=== PATIENT | male | born 1935 | race Caucasian/White ===

== ENCOUNTER 2018-03-31 20:44 | Emergency (ER) | payer BC, MEDICARE ==
[2018-03-31 20:50] VITALS: BP 222/118; PULSE 96; RESP 20; TEMP 98.6; O2SAT 95
[2018-03-31] MEDS ORDERED: ATOR10TA15 PO (21:03)
[2018-03-31] MEDS ORDERED: TAMS5CAP PO (21:03)
--- NOTE | 2018-03-31 21:09 | PD ---
HPI Chief Complaint: Complaint Time Seen by Provider: 21:03 Travel History International Travel<30 days: No Contact w/Intl Traveler<30days: No Traveled to known affect area: No History of Present Illness HPI 82yo M presents to the ED with c/o inability to urinate and suprapubic pain for 3 hours. Pt is on flomax for 2 weeks and does not know if he has enlarged prostate. Denies any fever, chest pain, sob, n/v, dysuria, hematuria, testicular pain, penile rash or discharge. Pt said this has not happen before. PFSH Past Medical History Diminished Hearing: No Social History Alcohol Use: No Tobacco Use: No Substance Use: No Allergies-Medications (Allergen,Severity, Reaction): Coded Allergies: No Known Allergies (Verified Adverse Reaction, Unknown, 03/31/18) Reported Meds & Prescriptions Reported Meds & Active Scripts Active Reported Atorvastatin (Atorvastatin Calcium) 10 Mg Tab 10 Mg PO HS Flomax (Tamsulosin HCl) 0.4 Mg Cap 0.4 Mg PO HS Review of Systems Except as stated in HPI: all other systems reviewed are Neg Physical Exam Narrative GENERAL: 82yo M in mild distress. SKIN: Focused skin assessment warm/dry. HEAD: Atraumatic. Normocephalic. EYES: Pupils equal and round. No scleral icterus. No injection or drainage. ENT: No nasal bleeding or discharge. Mucous membranes pink and moist. NECK: Trachea midline. No JVD. CARDIOVASCULAR: Regular rate and rhythm. No murmur appreciated. RESPIRATORY: No accessory muscle use. Clear to auscultation. Breath sounds equal bilaterally. GASTROINTESTINAL: Abdomen soft, +Suprapubic distension and tenderness to palpation. No tenderness in all four quadrants besides suprapubic. No rebound tenderness or guarding. : No ttp testicle bilaterally. No penile rash or discharge. MUSCULOSKELETAL: No obvious deformities. No clubbing. No cyanosis. No edema. NEUROLOGICAL: Awake and alert. No obvious cranial nerve deficits. Motor grossly within normal limits. Normal speech. PSYCHIATRIC: Appropriate mood and affect; insight and judgment normal. Data Data Last Documented VS Vital Signs Date Time Temp Pulse Resp B/P (MAP) Pulse Ox O2 Delivery O2 Flow Rate FiO2 03/31/18 21:17 89 16 175/86 (115) 99 Room Air 03/31/18 20:50 98.6 Orders Orders Urinary Catheter Insert/Apply (03/31/18 21:03) Basic Metabolic Panel (Bmp) (03/31/18 21:03) Urinalysis - C+S If Indicated (03/31/18 21:03) Labs Laboratory Tests Test 03/31/18 21:30 Urine Color YELLOW Urine Turbidity CLEAR Urine pH 6.0 Urine Specific [place] LESS/EQUAL 1.005 Urine Protein NEG mg/dL Urine Glucose (UA) NEG mg/dL Urine Ketones NEG mg/dL Urine Occult Blood LARGE Urine Nitrite NEG Urine Bilirubin NEG Urine Urobilinogen 0.2 MG/DL Urine Leukocyte Esterase NEG Urine RBC 20-24 /hpf Urine WBC 6-8 /hpf Urine Squamous Epithelial Cells 0-5 /hpf Urine Bacteria NONE /hpf Microscopic Urinalysis Comment CATH-CULT NOT IND Blood Urea Nitrogen 22 MG/DL Creatinine 1.10 MG/DL Random Glucose 136 MG/DL Calcium Level 8.4 MG/DL Sodium Level 143 MEQ/L Potassium Level 3.9 MEQ/L Chloride Level 110 MEQ/L Carbon Dioxide Level 24.5 MEQ/L Anion Gap 9 MEQ/L Estimat Glomerular Filtration Rate 64 ML/MIN [facility] Medical Decision Making Medical Screen Exam Complete: Yes Emergency Medical Condition: Yes Differential Diagnosis Urinary retention vs. UTI vs. enlarged prostate vs. [place] Narrative Course 82yo M with inability to urinate for 3 hours. Has suprapubic tenderness. Lux catheter inserted and 600cc of urine came out. Pt feels much better and no longer has suprapubic pain. UA showed large blood. WBC 6-8. Culture not indicated. BMP showed normal creatinine at 1.10. BUN mildly elevated at 22. Instructed pt to hydrate orally. Pt has appointment with his primary care tomorrow. Will discharge with lux and leg bag. Return precautions given. Diagnosis Primary Impression: Urinary retention Referrals: Andrea Campos MD call for appointment Patient Instructions: General Instructions Departure Forms: Tests/Procedures Additional Instructions: Please follow up with urology as outpatient. Return to the ED if symptoms worsen. Continue to take your flomax. Med/Other Pt SpecificInfo: No Change to Meds Disposition: 01 DISCHARGE HOME Condition: Stable Shanae Bowden DO Mar 31, 2018 21:09
[2018-03-31 21:17] VITALS: BP 175/86; PULSE 89; RESP 16; O2SAT 99
[2018-03-31 21:33] LABS: BILIRUBIN, URINE NEG (NEG); BLOOD, URINE LARGE (NEG); GLUCOSE,URINE NEG (NEG); KETONE, URINE NEG (NEG); NITRITE,URINE NEG (NEG); URINE COLOR YELLOW (YELLW/STRAW); URINE LEUKOCYTE ESTERASE NEG (NEG)
[2018-03-31 21:38] LABS: SQUAMOUS EPITHELIAL CELL URINE 0-5 /hpf (0-5)
[2018-03-31 21:44] LABS: CALCIUM 8.4 MG/DL (8.5-10.1)
[2018-03-31 21:45] LABS: BICARBONATE 24.5 MEQ/L (21.0-32.0)
[2018-03-31 21:48] LABS: CREATININE 1.1 MG/DL (0.60-1.30)
[2018-03-31 22:26] VITALS: BP 158/76
== END 2018-03-31 22:28 | disposition home or self-care (01) ==
LOC: PHED 20:44
DX: R33.9 Retention of urine, unspecified (principal); R31.9 Hematuria, unspecified
CPT/HCPCS: 51702; 80048; 81001

== ENCOUNTER 2018-04-30 06:44 | Inpatient (IN) ==
--- NOTE | 2018-04-30 07:24 | ED ---
HPI General Chief Complaint: Recheck/Abnormal Lab/Rx Stated Complaint: catheter defect Time Seen by Provider: 04/30/18 07:20 Source: patient Mode of arrival: ambulatory Limitations: no limitations History of Present Illness HPI narrative: 83-year-old male patient with history of urinary retention, currently following up with his urologist, is supposed to get TURP, here because he states that he has not been emptying the urinary Anderson bag since 11 AM yesterday and, having abdominal discomfort and urge to urinate. He denies any other issues, fevers, vomiting, or other symptoms. Related Data Home Medications Medication Instructions Recorded Confirmed atorvastatin 40 mg PO DAILY 04/30/18 04/30/18 tamsulosin [Flomax] 0.4 mg PO DAILY 04/30/18 04/30/18 Allergies Allergy/AdvReac Type Severity Reaction Status Date / Time No Known Allergies Unknown Uncoded 03/31/18 20:53 Review of Systems Except as stated in HPI: all other systems reviewed are negative [facility] Social History Social History Substance History: No History of Abuse Second Hand Smoke Exposure: No Smoking Status: Former smoker Tobacco Type: Cigarettes How Often Do You Have a Drink Containing Alcohol: Monthly or less Immunization History Tetanus Immunization: Unsure Hx Influenza Vaccine This Season: No Exam Narrative Exam Narrative: GENERAL: Well-developed elderly white male patient currently in mild distress. Awake and oriented 3. SKIN: Focused skin assessment warm/dry. HEAD: Atraumatic. Normocephalic. EYES: Pupils equal and round. No scleral icterus. No injection or drainage. ENT: No nasal bleeding or discharge. Mucous membranes pink and moist. NECK: Trachea midline. No JVD. CARDIOVASCULAR: Regular rate and rhythm. No murmur appreciated. RESPIRATORY: No accessory muscle use. Clear to auscultation. Breath sounds equal bilaterally. GASTROINTESTINAL: Abdomen soft, non-tender, nondistended. Hepatic and splenic margins not palpable. GENITOURINARY: Anderson catheter appears to be in place. No lesions or erythema. Like back appears to be empty. MUSCULOSKELETAL: No obvious deformities. No clubbing. No cyanosis. No edema. NEUROLOGICAL: Awake and alert. No obvious cranial nerve deficits. Motor grossly within normal limits. Normal speech. PSYCHIATRIC: Appropriate mood and affect; insight and judgment normal. Course Hospital Course: I had initially place a Anderson catheter without significant urine production. IV fluid bolus also did not improve urine production. Patient admits that he has not been eating or drinking well in the last few weeks, has had significant weight loss as well, and feels like he is nauseous. Lab work was done and shows acute renal failure. He also has an elevated white blood cell count although I think some of this may be hemoconcentration. His sodium is fairly low 126. His potassium is 5.5. BUN creatinine is quite elevated and at this point, my plan would be to admit him for further evaluation of acute renal failure. Case is discussed with Dr. Tucker for admission. Initial Documented Vital Signs Temperature 98.5 F 04/30/18 06:50 Pulse Rate 66 04/30/18 06:50 Respiratory Rate 24 04/30/18 06:50 Blood Pressure 162/78 H 04/30/18 06:50 Pulse Oximetry 96 04/30/18 06:50 Last Documented Vital Signs Temperature 98.5 F 04/30/18 06:50 Pulse Rate 66 04/30/18 06:50 Respiratory Rate 24 04/30/18 06:50 Blood Pressure 162/78 H 04/30/18 06:50 Pulse Oximetry 96 04/30/18 06:50 Medical Decision Making Differential Diagnosis Differential Diagnosis: Anderson catheter malfunction versus decreased urination Lab Data Result diagrams: 04/30/18 08:39 04/30/18 08:39 Lab Results 04/30/18 04/30/18 Range/Units 08:39 08:39 CBC w Diff Auto diff final WBC 16.8 H (4.0-11.0) th/mm3 RBC 4.18 L (4.50-5.90) mil/mm3 Hgb 13.2 (13.0-17.0) gm/dL Hct 39.2 (39.0-51.0) % MCV 93.8 (80.0-100.0) fL MCH 31.6 (27.0-34.0) pg MCHC 33.7 (32.0-36.0) % RDW 12.4 (11.6-17.2) % Plt Count 328 (150-450) th/mm3 MPV 7.6 (7.0-11.0) fL Neut % (Auto) 86.2 H (16.0-70.0) % Lymph % (Auto) 7.1 L (9.0-44.0) % [place] % (Auto) 4.8 (0.0-8.0) % Eos % (Auto) 1.4 (0.0-4.0) % Baso % (Auto) 0.5 (0.0-2.0) % Neut # (Auto) 14.4 H (1.8-7.7) th/mm3 Lymph # (Auto) 1.2 (1.0-4.8) th/mm3 [place] # (Auto) 0.8 (0.0-0.9) th/mm3 Eos # (Auto) 0.2 (0.0-0.4) th/mm3 Baso # (Auto) 0.1 (0.0-0.2) th/mm3 WBC Differential . Differential Comment . Sodium 126 L (136-145) meq/L Potassium 5.5 H (3.5-5.1) meq/L Chloride 93 L (98-107) meq/L Carbon Dioxide 21.0 (21.0-32.0) meq/L Anion Gap 12 (5-15) meq/L BUN 81 H (7-18) mg/dL Creatinine 8.20 H (0.60-1.30) mg/dL Estimated GFR 6 L (>89) mL/min Random Glucose 136 H (74-106) mg/dL Calcium 7.8 L (8.5-10.1) mg/dL Discharge Plan Discharge Disposition Patient Disposition: 30 Still Patient Discharge Condition Condition: Stable Discharge Details Anticipated Discharge Date: 04/30/18 Diagnosis: Acute renal failure (ARF) Physicians Team ED Provider: Angie Logan Primary Care Provider: Apolinar Murrell Rxs /Orders / Referrals /Forms Prescriptions: No Action atorvastatin 40 mg Tablet 40 mg PO DAILY RF: 0 tamsulosin [Flomax] 0.4 mg Capsule,Extended Release 24hr 0.4 mg PO DAILY RF: 0 Discharge Interventions Interventions: Vital Signs Last Done: 04/30/18 06:50 Status ED Status: With Doctor
[2018-04-30] MEDS ORDERED: Sodium Chlor 0.9% Inj 500 ML IV.SIG ONE (08:23)
[2018-04-30 08:59] LABS: Baso # (Auto) 0.1 th/mm3 (0.0-0.2); Baso % (Auto) 0.5 % (0.0-2.0); Eos # (Auto) 0.2 th/mm3 (0.0-0.4); Eos % (Auto) 1.4 % (0.0-4.0); Hematocrit 39.2 % (39.0-51.0); Hemoglobin 13.2 gm/dL (13.0-17.0); Lymph # (Auto) 1.2 th/mm3 (1.0-4.8); Lymph % (Auto) 7.1 % (9.0-44.0); Mean Corpuscular HGB Conc 33.7 % (32.0-36.0); Mean Corpuscular Hemoglobin 31.6 pg (27.0-34.0); Mean Corpuscular Volume 93.8 fL (80.0-100.0); Mean Platelet Volume 7.6 fL (7.0-11.0); Mono # (Auto) 0.8 th/mm3 (0.0-0.9); Mono % (Auto) 4.8 % (0.0-8.0); Neut # (Auto) 14.4 th/mm3 (1.8-7.7); Neut % (Auto) 86.2 % (16.0-70.0); Platelet Count 328 th/mm3 (150-450); Red Blood Count 4.18 mil/mm3 (4.50-5.90); Red Cell Distribution Width 12.4 % (11.6-17.2); White Blood Count 16.8 th/mm3 (4.0-11.0)
[2018-04-30 09:01] LABS: Potassium 5.5 meq/L (3.5-5.1)
[2018-04-30 09:03] LABS: Calcium 7.8 mg/dL (8.5-10.1)
[2018-04-30] MEDS ORDERED: Morphine Inj 4 MG/ML Vial IV.PUSH ONE (10:10)
[2018-04-30] MEDS ORDERED: Bisacodyl 10 MG Supp RECTAL PRN (10:29)
[2018-04-30] MEDS ORDERED: Sod Chloride 0.9% Inj 1,000 ML IV.SIG ONE (10:29)
--- NOTE | 2018-04-30 11:10 | XR ---
EXAM DATE: 04/30/2018 11:07 AM EDT AGE/SEX: 83 years / Male INDICATIONS: . Renal failure, evaluate for pulmonary edema. CLINICAL DATA: This is the patient's initial encounter. Patient reports that signs and symptoms have been present for 1 day and indicates a pain score of 0/10. MEDICAL/SURGICAL HISTORY: . Renal failure. None. COMPARISON: No prior exams available for comparison. FINDINGS: PA and lateral views of the chest demonstrate the right basilar density. Heart borderline enlarged. T he cardiomediastinal contours are unremarkable. Osseous structures are intact. CONCLUSION: Right basilar density could be atelectasis or infiltrate. Electronically signed by: Luke Grullon MD 04/30/2018 11:08 AM EDT
--- NOTE | 2018-04-30 11:16 | CT ---
EXAM DATE: 04/30/2018 11:04 AM EDT AGE/SEX: 83 years / Male INDICATIONS: Abdomen pain CLINICAL DATA: This is the patient's initial encounter. Patient reports that signs and symptoms have been present for 1 month and indicates a pain score of 10/10. MEDICAL/SURGICAL HISTORY: Renal disease. Hypertension. None. RADIATION DOSE: 10.58 CTDI (mGy) COMPARISON: No prior exams available for comparison. TECHNIQUE: Multiple contiguous axial images were obtained through the abdomen. Images were obtained using multiple row detector helical technique. Using automated exposure control and adjustment of the mA and/or kV according to patient size, radiation dose was kept as low as reasonably achievable to o btain optimal diagnostic quality images. DICOM format image data is available electronically for rev iew and comparison. FINDINGS: Lower Lungs: The visualized lower lungs are clear. Liver: The liver has a homogeneous density without space-occupying lesion. There is no dilation of th e biliary tree. Spleen: Homogeneous density without enlargement. Pancreas: Unremarkable without mass or calcification. Kidneys: Normal in size and shape. Bilateral hydronephrosis and hydroureter leading to the urinary b ladder. Adrenal Glands: Unremarkable. Aorta: The aorta and proximal iliac vessels are grossly unremarkable without aneurysmal dilation. Bowel/Mesentery: Diverticulosis without diverticulitis. Abdominal Wall: Intact. Retroperitoneum: No evidence of adenopathy in the retrocrural, para-aortic, or deep pelvic regions. Bladder: Contains a Anderson catheter. There appears to be wall thickening. Enlarged prostate gland. Th ere is also a large pelvic mass which is intimately associated with the prostate gland measuring 9.4 x 7.4 cm. Extensive bilateral pelvic adenopathy measuring 2.5 cm on the right. A second enlarged lymp h node more anteriorly in the right pelvis measures 3.3 cm. Adenopathy left pelvic sidewall measures 2.5 cm. Reproductive Organs: No abnormal masses or calcifications seen. Inguinal: The inguinal region is unremarkable without evidence of adenopathy. Bony Structures: Sclerotic focus on the right aspect of T8. Scattered degenerative changes. CONCLUSION: 1. Large mass in the pelvis contiguous with the prostate gland. Prostate carcinoma is suspected. Cor relation with PSA levels. 2. Extensive bilateral pelvic lymphadenopathy. 3. Sclerotic focus in T8 likely metastatic. 4. Bilateral hydronephrosis and hydroureter, likely obstruction caused by pelvic mass. Electronically signed by: Luke Grullon MD 04/30/2018 11:15 AM EDT
--- NOTE | 2018-04-30 12:00 | US ---
EXAM DATE: 04/30/2018 11:45 AM EDT AGE/SEX: 83 years / Male INDICATIONS: Abdominal pain. CLINICAL DATA: This is the patient's initial encounter. Patient reports that signs and symptoms have been present for 1 month and indicates a pain score of 0/10. MEDICAL/SURGICAL HISTORY: . Renal disease. HTN. None. COMPARISON: [facility], CT ABDOMEN & PELVIS W/O CONTRAST, 04/30/2018. . MEASUREMENTS: Right Kidney:__13.2 x 6.7 x 6.8 cm Left Kidney:__11.4 x 5.6 x 5.9 cm FINDINGS: Right Kidney: Right-sided hydronephrosis. Trace of fluid adjacent to the right kidney. Left Kidney: Left-sided hydronephrosis. Bladder: Anderson catheter is present. Bladder decompressed. There is bladder wall thickening measuring 8 mm. Other: None. CONCLUSION: 1. Bilateral hydronephrosis. 2. Wall thickening of the urinary bladder. 3. Please refer to CT abdomen/pelvis for further details of the pelvic mass, not well seen sonograph ically. Electronically signed by: Luke Grullon MD 04/30/2018 11:59 AM EDT
--- NOTE | 2018-04-30 14:25 | P.HP ---
History of Present Illness Primary Care Physician: Apolinar Murrell Chief Complaint: Abdominal pain History of Present Illness: 83-year-old male with known history of hyperlipidemia who presented the hospital because of suprapubic pain. Patient had at least 1 month history of suprapubic pain, abdominal pain. He was seen in [place] ER approximately 1 month ago and was found to have outlet obstruction and a Lux was placed with Flomax started and patient was to follow-up with Dr. Bowman, patient did follow up with urologist one half weeks after that and had his Lux removed. It was not but 2-3 hours and the pain came back significantly so he went to [facility] where they put another Lux in him. The patient states that he has been with this intermittent Lux removal and placement where he had visited [facility] at least 3 times for Lux placement. He has been following up with his urologist. The patient states that it is planned for him to have a cystoscopy on Wednesday and a "Roto-Rooter" done in 1 week after that and he would be fine. He does not indicate that he has been told that he had had any type of pelvic mass, bladder mass, cancer. The patient continued to have the pain, he came back to the emergency department for evaluation here at [place] and his Lux was removed and a new one was reinserted thinking that it was malfunctioning, however there is no urinary output. Laboratory studies do indicate severe renal failure, hyperkalemia, hyponatremia. Is recommended by the ER physician that the patient be admitted for further evaluation and management. After excepting the patient for admission a CT scan and ultrasound were performed which does show a rather significant prostatic mass, lymphadenopathy, bilateral hydro-ureter, hydronephrosis. Upon seeing the patient he is resting comfortably. Still having suprapubic tenderness, there is absolutely no urine in the Lux at this time. - Diagnosis (1) Acute renal failure (ARF) (2) Ureter obstruction (3) Leukocytosis Inpatient Certification: I certify that the inpatient services were ordered in accordance with Medicare regulations governing the order. This includes certification that hospital inpatient services are reasonable and necessary and in the case of services not specified as inpatient-only under 42 CFR 419.22(n), that they are appropriately provided as inpatient services in accordance to with the 2-midnight benchmark under 43 CFR 412.3(e) Estimated Total Length of Stay (Days): 3 Plans for Post Hospital Care: Not yet determined Review of Systems All other systems reviewed negative except as stated in HPI Gastrointestinal: Reports abdominal pain Genitourinary: Reports decreased urination, Reports difficulty urinating PMFSH - History History Provided By: Patient - Medical History Medical History: Medical History (Last Updated 04/30/18 @ 17:11 by Jasper Camacho MD) BPH with obstruction/lower urinary tract symptoms Hyperlipidemia No significant past surgical history - Family History Family History: Family History (Last Updated 04/30/18 @ 12:17 by OPAL Sousa) Other No significant family history - Tobacco History Second Hand Smoke Exposure: No Tobacco Use In Past 30 Days: No Smoking Status: Former smoker Tobacco Type: Cigarettes - Alcohol History How Often Do You Have a Drink Containing Alcohol: Monthly or less - Substance Use History Substance History: No History of Abuse - Immunization History Tetanus Immunization: Unsure Hx Influenza Vaccine This Season: No Medications and Allergies Active Medications: Active Medications Acetaminophen (Tylenol) 650 mg PO Q4H PRN PRN Reason: Temp > 100.4 Al Hydroxide/Mg Hydroxide (Milk Of Magnesia Liq) 30 ml PO Q12H PRN PRN Reason: Mild Constipation Bisacodyl (Dulcolax Supp) 10 mg RECTAL DAILY PRN PRN Reason: SEVERE CONSITIPATION Sodium Chloride (Ns Inj) 1,000 mls @ 150 mls/hr IV.CONT .Q6H40M KRISTAL Lactulose (Lactulose Liq) 30 ml PO DAILY PRN PRN Reason: SEVERE CONSITIPATION Ondansetron HCl (Zofran Inj) 4 mg IV.PUSH Q6H PRN PRN Reason: NAUSEA OR VOMITING Senna/Docusate Sodium (Kaya-Colace) 1 tab PO BID KRISTAL Sennosides (Senokot) 17.2 mg PO Q12H PRN PRN Reason: Moderate Constipation Temazepam (Restoril) 15 mg PO HS PRN PRN Reason: INSOMNIA Allergies Allergy/AdvReac Type Severity Reaction Status Date / Time No Known Allergies Unknown Uncoded 03/31/18 20:53 Home Medications Medication Instructions Recorded Confirmed Type atorvastatin 40 mg PO DAILY 04/30/18 04/30/18 History tamsulosin [Flomax] 0.4 mg PO DAILY 04/30/18 04/30/18 History Exam Vital signs: Vital Signs 04/30/18 06:50 04/30/18 13:30 Temperature 98.5 F 98.4 F Pulse Rate 66 73 Respiratory Rate 24 19 Blood Pressure 162/78 H 188/89 H Pulse Oximetry 96 95 Intake & Output 04/29/18 04/30/18 04/30/18 18:59 06:59 18:59 Intake Total 500 / 500 Balance 500 / 500 Weight 75.2 kg Intake: IV 500 / 500 NS Inj 500 ML @ Wide Open IV. 500 / 500 SIG BOLUS ONE Rx#:[id number] Narrative: GENERAL: Well-developed, well-nourished, in no acute distress. alert and orientated HEENT: Head is normocephalic without any lesions or masses noted. Facial features are symmetric. Eyes: Pupils equal round reactive to light. Extraocular muscles are intact. Conjunctivae were clear. Oropharyngeal: Pharynx without any erythema edema. Tongue is midline without deviation. Buccal mucosa is moist without any masses or lesions NECK: Supple without any masses. Trachea midline no deviation. No JVD, no bruits are appreciated CARDIAC: Regular rhythm, regular rate. S1/S2 are heard. No murmurs gallops or rubs. LUNGS: Clear to auscultation bilaterally. No wheeze, rhonchi or rales. No use of accessory muscles on inspiration or expiration. ABDOMEN: Soft, nontender. Nondistended. Bowel sounds heard in all 4 quadrants. No organomegaly or masses. Negative rebound, negative guarding. Lux is in place with absolutely no urine in the tube EXTREMITIES: No edema, pulses are equal bilaterally. No cyanosis or clubbing NEUROLOGY: Mood and affect appear appropriate. Cranial nerves II through XII grossly intact. Muscle strength 5/5 in upper and lower extremities bilaterally. Deep tendon reflexes are 2+ in upper and lower extremities bilaterally. Results - Labs CBC & Chem 7: 04/30/18 08:39 04/30/18 16:45 Labs: Laboratory Results - last 24 hr 04/30/18 04/30/18 08:39 08:39 CBC w Diff Auto diff final WBC 16.8 H RBC 4.18 L Hgb 13.2 Hct 39.2 MCV 93.8 MCH 31.6 MCHC 33.7 RDW 12.4 Plt Count 328 MPV 7.6 Neut % (Auto) 86.2 H Lymph % (Auto) 7.1 L Bureau % (Auto) 4.8 Eos % (Auto) 1.4 Baso % (Auto) 0.5 Neut # (Auto) 14.4 H Lymph # (Auto) 1.2 Bureau # (Auto) 0.8 Eos # (Auto) 0.2 Baso # (Auto) 0.1 WBC Differential . Differential Comment . Sodium 126 L Potassium 5.5 H Chloride 93 L Carbon Dioxide 21.0 Anion Gap 12 BUN 81 H Creatinine 8.20 H Estimated GFR 6 L Random Glucose 136 H Calcium 7.8 L - Imaging Impressions Abdomen/Bladder Ultrasound 04/30/18 00:00 CONCLUSION: 1. Bilateral hydronephrosis. 2. Wall thickening of the urinary bladder. 3. Please refer to CT abdomen/pelvis for further details of the pelvic mass, not well seen sonographically. Chest X-Ray 04/30/18 00:00 CONCLUSION: Right basilar density could be atelectasis or infiltrate. Abdomen/Pelvis CT 04/30/18 10:10 CONCLUSION: 1. Large mass in the pelvis contiguous with the prostate gland. Prostate carcinoma is suspected. Correlation with PSA levels. 2. Extensive bilateral pelvic lymphadenopathy. 3. Sclerotic focus in T8 likely metastatic. 4. Bilateral hydronephrosis and hydroureter, likely obstruction caused by pelvic mass. Caprini VTE Risk Assessment Caprini VTE Risk Assessment: Moderate/High Risk (score >= 2) Caprini Risk Assessment Model: Point Value = 1 Point Value = 2 Point Value = 3 Point Value = 5 Age 41-60 Minor surgery BMI > 25 kg/m2 Swollen legs Varicose veins or History of unexplained or recurrent spontaneous Oral contraceptives or hormone replacement Sepsis (< 1 month) Serious lung disease, including pneumonia (< 1 month) Abnormal pulmonary function Acute myocardial infarction Congestive heart failure (< 1 month) History of inflammatory bowel disease Medical patient at bed rest Age 61-74 Arthroscopic surgery Major open surgery (> 45 min) Laparoscopic surgery (> 45 min) Malignancy Confined to bed (> 72 hours) Immobilizing plaster cast Central venous access Age >= 75 History of VTE Family history of VTE Factor V Leiden Prothrombin [id number] Lupus anticoagulant Anticardiolipin antibodies Elevated serum homocysteine Heparin-induced thrombocytopenia Other congenital or acquired thrombophilia Stroke (< 1 month) Elective arthroplasty Hip, pelvis, or leg fracture Acute spinal cord injury (< 1 month) Prophylaxis Regimen: Total Risk Factor Score Risk Level Prophylaxis Regimen 0-1 Low Early ambulation 2 Moderate Order ONE of the following: *Sequential Compression Device (SCD) *Heparin 5000 units SQ BID 3-4 Higher Order ONE of the following medications: *Heparin 5000 units SQ TID *Enoxaparin/Lovenox 40 mg SQ daily (WT < 150 kg, CrCl > 30 mL/min) *Enoxaparin/Lovenox 30 mg SQ daily (WT < 150 kg, CrCl > 10-29 mL/min) *Enoxaparin/Lovenox 30 mg SQ BID (WT < 150 kg, CrCl > 30 mL/min) AND/OR *Sequential Compression Device (SCD) 5 or more Highest Order ONE of the following medications: *Heparin 5000 units SQ TID (Preferred with Epidurals) *Enoxaparin/Lovenox 40 mg SQ daily (WT < 150 kg, CrCl > 30 mL/min) *Enoxaparin/Lovenox 30 mg SQ daily (WT < 150 kg, CrCl > 10-29 mL/min) *Enoxaparin/Lovenox 30 mg SQ BID (WT < 150 kg, CrCl > 30 mL/min) AND *Sequential Compression Device (SCD) Assessment and Plan - Assessment (1) Acute renal failure (ARF) Code(s): N17.9 - Acute kidney failure, unspecified Status: Acute (2) Ureter obstruction Code(s): N13.5 - Crossing vessel and stricture of ureter without hydronephrosis Status: Acute (3) Leukocytosis Code(s): D72.829 - Elevated white blood cell count, unspecified Status: Acute - Plan Acute renal failure secondary to ureter obstruction -This condition is complicated with many factors with this significant pelvic mass, likely prostate cancer, no urinary output, hydroureter and hydronephrosis , electrolyte abnormalities, patient with medical condition that could become rather life-threatening. Patient could become septic, going acute respiratory failure, hypotensive. Patient will need closer management in the ICU for care. patient may need urgent percutaneous nephrostomy tubes. -CT scan showed a rather large mass 9.4 x 7.4 cm in the pelvis contiguous with the prostate gland with bilateral hydronephrosis and hydroureter with obstruction caused by pelvic mass. There were sclerotic focus in T8 which could be metastatic. Extensive bilateral pelvic lymphadenopathy -Ultrasound was performed which did show bilateral hydronephrosis, wall thickening of the urinary bladder -There is no urinary output despite replacement of Lux, CT review was performed and Lux is in place, however bladder seems rather decompressed and small. It appears that the mass has surrounded the bladder possible obstructing the ureters. -Patient was given 500 cc of IV fluids in the emergency department, will give another liter of normal saline, continue IV fluids at 150 cc an hour, monitor for any fluid overload, reevaluate with BMP at 1600 today. Laboratory findings indicative of hypervolemic renal failure -We will need to monitor renal function to see if there is any improvement after IV fluids -Urology was consulted who indicated the patient will need cystoscopy performed. Requesting the patient be transferred to [facility] for further evaluation. Cystoscopy cannot be performed at [place]. Urologist recommending IV fluids administration, monitor renal function to see if there is any improvement. -Nephrology consulted for further recommendations -Will check PSA -Discussed with Dr Andino from critical care who has been aware of the patient since he is in ICU, he is concerned about the patient's renal status, follow up labs have not improved with IV fluids, still no urine output from lux, bicarb slowly worsening. Dr Andino discussed with Interventional Radiologist Dr Grimm about bilat percutaneous nephrostomy tubes for appropriate management and improvement of patient's clinical condition. Dr Grimm spoke with Dr Pope, Urology, concerning the procedures. -Interventional radiology was consulted for Bilateral percutaneous nephrostomy tubes. Electrolyte abnormalities -Patient with life-threatening abnormalities with significant hyponatremia, hyperkalemia -Obtain EKG -We will continue to monitor electrolytes after IV hydration -Consider Kayexalate, sodium bicarb, calcium gluconate, D5, insulin if potassium worsens or does not improve -Monitor sodium every 6 hours Leukocytosis -Likely secondary to concentration, dehydration, patient is afebrile -will check for any signs of infection -Chest x-ray showed right basilar density could be atelectasis or infiltrate -Obtain blood culture -Unable to obtain urinalysis secondary patient no longer having any urinary output DVT prevention -Sequential compression devices, avoid chemical prophylaxis at this time secondary to likely procedure Discussed Condition With: Patient, Dr Tucker, Nursing staff, Dr Andino, Dr Pope (1) Acute renal failure (ARF) Qualifiers: Acute renal failure type: unspecified Qualified Code(s): N17.9 - Acute kidney failure, unspecified
--- NOTE | 2018-04-30 14:40 | ECG ---
Date Performed: 04/30/2018 Time Performed: 10:43:17 PTAGE: 83 years EKG: SINUS BRADYCARDIA WITH SINUS ARRHYTHMIA BORDERLINE ECG NO PREVIOUS TRACING DOCTOR: Aroldo Brown Interpretating Date/Time 04/30/2018 14:39:39
--- NOTE | 2018-04-30 17:16 | P.CONNP ---
History of Present Illness Service: Nephrology Consult date: 04/30/18 Requesting Physician: Roberth Andino Reason for Consult: Acute renal failure Primary Care Provider: Apolinar Murrell Family Provider: Apolinar Murrell Chief Complaint: Abdominal pain History of Present Illness: Patient is a 83-year-old white male with history of obstructive uropathy, pelvic pain, apparently he has history of obstruction and acute urinary retention 1 month ago a Anderson catheter was placed at [place] and follow-up with Dr. Lynn, catheter was removed but he stated the pain returned the same day and he went to the emergency, at [facility] and is a Anderson catheter was placed in, he was told he is scheduled to undergo TURP next week, he stated that he stopped passing urine since yesterday morning and developed pelvic pain again came to the emergency and a CT of the abdomen and pelvis showed bilateral hydronephrosis, large pelvic mass with localized lymph node enlargement and sclerotic bone lesion in T8 possible malignant nature, a metastatic prostate cancer was suspected and he has been transferred to [facility]. His creatinine was 1.10 in March and now is gone up to 8.2 he is anuric. Review of Systems Constitutional: Reports anorexia, Reports lack of energy Eyes: Denies blind spots, Denies blurry vision, Denies bulging eyes, Denies change in vision, Denies double vision, Denies discharge, Denies dry eyes, Denies floaters, Denies irritation, Denies itchy eyes, Denies loss of vision, Denies pain, Denies requires corrective lenses, Denies sensitivity to light, Denies other Ears, Nose, Mouth, and Throat: Denies abnormal hearing, Denies bleeding gums, Denies bad breath, Denies change in voice, Denies dental pain, Denies difficulty swallowing, Denies dizziness, Denies dry mouth, Denies ear discharge , Denies ear pain, Denies facial pain, Denies headache(s), Denies hearing loss, Denies hoarseness, Denies lip swelling, Denies nosebleed, Denies mouth lesions, Denies mouth pain, Denies nasal congestion, Denies nasal discharge, Denies nasal obstruction, Denies nasal trauma, Denies neck lump, Denies neck pain, Denies nose pain, Denies pain with swallowing, Denies poor balance, Denies post nasal drip, Denies ringing in the ears, Denies sinus pain, Denies sinus pressure , Denies sore throat, Denies throat swelling, Denies tongue swelling, Denies other Cardiovascular: Reports shortness of breath Respiratory: Reports shortness of breath Gastrointestinal: Reports constipation, Reports heartburn Genitourinary: Reports painful urination, Reports urinary frequency (Stopped making urine since yesterday) Musculoskeletal: Reports back pain, Reports body aches Neurologic: Reports weakness Psychiatric: Reports anxiety PMFSH - History History Provided By: Patient, Family Member - Medical History Medical History: Medical History (Last Updated 04/30/18 @ 17:11 by Jasper Camacho MD) BPH with obstruction/lower urinary tract symptoms Hyperlipidemia No significant past surgical history - Family History Family History: Family History (Last Updated 04/30/18 @ 12:17 by OPAL Sousa) Other No significant family history - Tobacco History Second Hand Smoke Exposure: No Tobacco Use In Past 30 Days: No Smoking Status: Former smoker Tobacco Type: Cigarettes - Alcohol History How Often Do You Have a Drink Containing Alcohol: 2 to 4 times a month - Substance Use History Substance History: No History of Abuse - Immunization History Tetanus Immunization: Unsure Hx Influenza Vaccine This Season: No Medications and Allergies Active Medications: Active Medications Acetaminophen (Tylenol) 650 mg PO Q4H PRN PRN Reason: Temp > 100.4 Al Hydroxide/Mg Hydroxide (Milk Of Magnesia Liq) 30 ml PO Q12H PRN PRN Reason: Mild Constipation Bisacodyl (Dulcolax Supp) 10 mg RECTAL DAILY PRN PRN Reason: SEVERE CONSITIPATION Sodium Chloride (Ns Inj) 1,000 mls @ 150 mls/hr IV.CONT .Q6H40M KRISTAL Lactulose (Lactulose Liq) 30 ml PO DAILY PRN PRN Reason: SEVERE CONSITIPATION Ondansetron HCl (Zofran Inj) 4 mg IV.PUSH Q6H PRN PRN Reason: NAUSEA OR VOMITING Senna/Docusate Sodium (Kaya-Colace) 1 tab PO BID [facility] Sennosides (Senokot) 17.2 mg PO Q12H PRN PRN Reason: Moderate Constipation Tamsulosin HCl (Flomax) 0.4 mg PO DAILY [facility] Temazepam (Restoril) 15 mg PO HS PRN PRN Reason: INSOMNIA Allergies Allergy/AdvReac Type Severity Reaction Status Date / Time No Known Allergies Unknown Uncoded 03/31/18 20:53 Home Medications Medication Instructions Recorded Confirmed Type atorvastatin 40 mg PO DAILY 04/30/18 04/30/18 History tamsulosin [Flomax] 0.4 mg PO DAILY 04/30/18 04/30/18 History Exam Vital signs: Vital Signs 04/30/18 06:50 04/30/18 13:30 04/30/18 14:36 Temperature 98.5 F 98.4 F Pulse Rate 66 73 Respiratory Rate 24 19 Blood Pressure 162/78 H 188/89 H Pulse Oximetry 96 95 97 Intake & Output 04/29/18 04/30/18 04/30/18 18:59 06:59 18:59 Intake Total 500 / 500 Balance 500 / 500 Weight 75.2 kg Intake: IV 500 / 500 NS Inj 500 ML @ Wide Open IV. 500 / 500 SIG BOLUS ONE Rx#:[id number] - Constitutional no acute distress - Routine HEENT Exam Head: Present: normocephalic Eye: Present: EOMI, PERRL ENT: Present: mucous membranes dry - Routine Neck Exam Present: supple - Routine Cardiovascular Exam Present: RRR - Routine Abdominal Exam Present: soft, normoactive bowel sounds, tenderness (Suprapubic) - Routine Extremities Exam Present: full ROM - Routine Skin Exam Present: intact - Routine Neurological Exam Present: alert, oriented X3 Results - Lab Results 04/30/18 08:39 04/30/18 08:39 Most recent lab results Calcium 7.8 mg/dL (8.5-10.1) L 04/30/18 08:39 - Image Kidney/bladder ultrasound: image reviewed Assessment and Plan - Assessment (1) Acute renal failure (ARF) Code(s): N17.9 - Acute kidney failure, unspecified Status: Acute Plan: Patient has obstructive uropathy and urology has been consulted, plan is to do intervention to see if we can drain the urine if this is unsuccessful he may need hemodialysis support discussed with patient We will check PSA Follow BMP Avoid nephrotoxins (2) Prostate mass Code(s): N42.9 - Disorder of prostate, unspecified Status: Acute Plan: Prostate cancer is suspected monitor (3) Ureter obstruction Code(s): N13.5 - Crossing vessel and stricture of ureter without hydronephrosis Status: Acute Plan: Urology consult pending (4) Hyponatremia Code(s): E87.1 - Hypo-osmolality and hyponatremia Status: Acute Plan: This is due to renal failure patient will need intervention (5) Hyperkalemia Code(s): E87.5 - Hyperkalemia Status: Acute - Plan Due to renal failure give [place] Diagnostic Tests Laboratory: Laboratory Results - last 72 hr 04/30/18 04/30/18 08:39 08:39 CBC w Diff Auto diff final WBC 16.8 H RBC 4.18 L Hgb 13.2 Hct 39.2 MCV 93.8 MCH 31.6 MCHC 33.7 RDW 12.4 Plt Count 328 MPV 7.6 Neut % (Auto) 86.2 H Lymph % (Auto) 7.1 L [place] % (Auto) 4.8 Eos % (Auto) 1.4 Baso % (Auto) 0.5 Neut # (Auto) 14.4 H Lymph # (Auto) 1.2 [place] # (Auto) 0.8 Eos # (Auto) 0.2 Baso # (Auto) 0.1 WBC Differential . Differential Comment . Sodium 126 L Potassium 5.5 H Chloride 93 L Carbon Dioxide 21.0 Anion Gap 12 BUN 81 H Creatinine 8.20 H Estimated GFR 6 L Random Glucose 136 H Calcium 7.8 L Result Diagrams: 04/30/18 08:39 04/30/18 08:39 (1) Acute renal failure (ARF) Qualifiers: Acute renal failure type: unspecified Qualified Code(s): N17.9 - Acute kidney failure, unspecified
[2018-04-30 17:43] LABS: Carbon Dioxide 20.8 meq/L (21.0-32.0); Potassium 5.5 meq/L (3.5-5.1)
[2018-04-30 18:59] LABS: Activated Partial Thrombo Time 32.9 sec (24.3-30.1)
[2018-04-30 19:03] LABS: INR 1.2 Ratio; Prothrombin Time 11.8 sec (9.8-11.6)
[2018-04-30] MEDS ORDERED: fentaNYL Citrate Inj 250 MCG/5 ML Ampul ONE (19:39)
[2018-04-30] MEDS ORDERED: Levofloxacin 500 mg Premix Inj 500 MG/100 ML PIGGYBACK IV.SIG ONE (20:01)
[2018-04-30] MEDS ORDERED: Iohexol 350 MG/ML 50 ML Vial (for Rad Diag) IVCONTRAST ONE (21:27)
--- NOTE | 2018-04-30 21:41 | P.RAD ---
Post Procedure Progress Note - Pre Procedure Diagnosis (1) Prostate mass (2) Hyponatremia (3) Ureter obstruction - Post Procedure Diagnosis (1) Prostate mass (2) Hyponatremia (3) Acute renal failure (ARF) (4) Ureter obstruction - Procedure Information Procedure Date: 04/30/18 Supervising Radiologist: Asael Grimm MD Estimated blood loss (mL): 10 Anesthesia: Local, Analgesia, Conscious Sedation - Plan of Activity Patient to Unit: Critical Care Patient Condition: Good See PACS Report for procedural detail/treatment. Drainage Procedure bilateral Nephrostomy [place] Tube Size: 8 Drainage: [place] drainage Fluid Description: Yellow, Red
[2018-04-30] MEDS: Sod Chloride 0.9% Inj 1,000 ML IV.CONT SCH (22:43)
[2018-04-30] MEDS: Senna/Docusate Sodium 8.6/50 MG Tablet PO SCH (22:46)
[2018-05-01 04:32] LABS: Baso % (Auto) 0.1 % (0.0-2.0); Eos # (Auto) 0.1 th/mm3 (0.0-0.4); Eos % (Auto) 0.8 % (0.0-4.0); Hematocrit 37.9 % (39.0-51.0); Hemoglobin 12.6 gm/dL (13.0-17.0); Lymph # (Auto) 0.5 th/mm3 (1.0-4.8); Lymph % (Auto) 3.5 % (9.0-44.0); Mean Corpuscular HGB Conc 33.3 % (32.0-36.0); Mean Corpuscular Hemoglobin 30.7 pg (27.0-34.0); Mean Corpuscular Volume 92.1 fL (80.0-100.0); Mean Platelet Volume 7.6 fL (7.0-11.0); Mono # (Auto) 0.8 th/mm3 (0.0-0.9); Neut # (Auto) 12.7 th/mm3 (1.8-7.7); Neut % (Auto) 89.6 % (16.0-70.0); Platelet Count 306 th/mm3 (150-450); Red Blood Count 4.12 mil/mm3 (4.50-5.90); Red Cell Distribution Width 13.4 % (11.6-17.2); White Blood Count 14.1 th/mm3 (4.0-11.0)
[2018-05-01 05:01] LABS: Calcium 8.1 mg/dL (8.5-10.1); Carbon Dioxide 23.4 meq/L (21.0-32.0); Potassium 5.4 meq/L (3.5-5.1)
[2018-05-01] MEDS: Sod Chloride 0.9% Inj 1,000 ML IV.CONT SCH ×3 (05:28→21:00)
[2018-05-01] MEDS ORDERED: Piperacil/Tazo 3.375 GM Premix 50 ML IV.SIG SCH (10:30)
[2018-05-01] MEDS: Acetaminophen 325 MG Tablet PO PRN ×2 (11:03→12:12)
[2018-05-01] MEDS: Piperacil/Tazo 2.25 GM Premix 50 ML IV.SIG SCH ×2 (11:07→20:58)
[2018-05-01 11:43] LABS: Bilirubin,Urine Negative (Negative); Clarity,Urine Hazy (Clear); Color,Urine Yellow (Yellw/Straw); Glucose,Urine (UA) Negative (Negative); Leukocyte Esterase,Urine Negative (Negative); Mucus,Urine Few /lpf (Occasional); Nitrite,Urine Negative (Negative); Specific Gravity,Urine 1.015 (1.002-1.035); Squamous Epithelial Cell,Urine <1 /hpf (0-5)
--- NOTE | 2018-05-01 11:53 | IR ---
EXAM DATE: 05/01/2018 11:39 AM EDT AGE/SEX: 83 years / Male INDICATIONS: Patient in acute renal failure. History of obstructive uropathy. Pelvic pain with acute urinary retention CLINICAL DATA: This is the patient's initial encounter. Patient reports that signs and symptoms have been present for 2 days and indicates a pain score of 0/10. MEDICAL/SURGICAL HISTORY: . Antihyperlipidemia None. COMPARISON: No prior exams available for comparison. FLUORO TIME (min): 32.19 IMAGE SERIES: 3 SEDATION TIME (min): 75 CONTRAST (cc): 50 Omnipaque (iohexol) 350 MEDICATION(S): 5 mg midazolam (Versed) IV 250 mcg Morphine PO Intra-procedural antibiotics were given as prescribed above. DEVICE(S): 8 Burkinan nephrostomy catheter RIGHT 8 Burkinan nephrostomy catheter LEFT . . PROCEDURE : 1. Ultrasound-guided puncture of the kidney. 2. Antegrade percutaneous pyelogram. 3. Percutaneous nephrostomy placement. 4. Conscious sedation with continuous EKG and oximetry monitoring. The risks, benefits and alternatives to the procedure were explained and verbal and written consent w as obtained. The site was prepped in sterile fashion. Full sterile technique was used, including ca p, mask, sterile gloves and gown and a large sterile sheet. Hand hygiene and 2% chlorhexidine and/or betadine/alcohol prep was utilized per protocol for cutaneous antisepsis. Sterile gel and sterile probe cover were utilized for ultrasound guidance. The skin and subcutaneous tissues were infiltrate d with local anesthetic solution. With ultrasound and fluoroscopic guidance the both kidneys were punctured with a 25-gauge spinal need le. With return of urine, CO2 was injected to delineate the posterior calyceal system. A posterior ca lyx was selected in each kidney and the overlying skin again anesthetized with an additional 5 cc of 1% Xylocaine. A dermatotomy was made with an 11 blade scalpel. A 18-gauge Gomez blunt needle was a dvanced down to the calyx. The inner stylette was removed. The free flow of urine, an 035 wire was ad vanced through the outer cannula. Serial dilatation was performed and a prescribed nephrostomy tube w as placed within the renal pelvis and sutured in place. Conscious sedation was performed with the prescribed dosages and duration as above in the presence of an independent trained radiology nurse to assist in the monitoring of the patient. EKG and oximetry remained stable throughout the procedure. The patient tolerated the procedure well and there were n o complications. The patient was sent to post anesthesia recovery in stable condition. CONCLUSION: 1. Uncomplicated bilateral nephrostomy tubes placed as above. Electronically signed by: Asael Grimm MD 05/01/2018 11:52 AM EDT
[2018-05-01 11:55] LABS: Bilirubin,Urine Negative (Negative); Clarity,Urine Hazy (Clear); Color,Urine Red (Yellw/Straw); Glucose,Urine (UA) Negative (Negative); Leukocyte Esterase,Urine Small (Negative); Mucus,Urine Few /lpf (Occasional); Nitrite,Urine Negative (Negative); Specific Gravity,Urine 1.013 (1.002-1.035)
--- NOTE | 2018-05-01 12:16 | P.PNNP ---
Subjective Interval history: Patient has bilateral nephrostomy tube Physical Exam Vital signs: Vital Signs 04/30/18 13:30 04/30/18 14:36 04/30/18 21:54 Temperature 98.4 F 98.7 F Pulse Rate 73 68 Respiratory Rate 19 24 Blood Pressure 188/89 H 130/78 Pulse Oximetry 95 97 95 04/30/18 22:24 04/30/18 22:46 04/30/18 22:54 Temperature Pulse Rate 66 57 L Respiratory Rate 23 14 17 Blood Pressure 126/76 139/69 Pulse Oximetry 95 96 04/30/18 23:44 05/01/18 00:00 05/01/18 02:00 Temperature 98.6 F Pulse Rate 61 66 Respiratory Rate 15 Blood Pressure 133/60 Pulse Oximetry 98 96 05/01/18 04:00 05/01/18 06:00 05/01/18 08:00 Temperature 98.7 F 97.5 F L Pulse Rate 63 60 69 Respiratory Rate 17 28 H Blood Pressure 152/73 H 187/86 H Pulse Oximetry 96 96 05/01/18 10:00 Temperature Pulse Rate 66 Respiratory Rate Blood Pressure Pulse Oximetry Intake & Output 04/30/18 05/01/18 05/01/18 18:59 06:59 18:59 Intake Total 500 / 500 1100 / 1100 985 / 985 Output Total 4750 / 4750 Balance 500 / 500 -3650 / -3650 985 / 985 Weight 71.2 kg Intake: IV 500 / 500 1100 / 1100 985 / 985 NS Inj 1,000 ML @ 150 mls/hr IV 1000 / 1000 985 / 985 .CONT .Q6H40M [facility] Rx#: [id number] Levaquin 500 mg Premix Inj 500 100 / 100 mg In 100 ml @ 0 mls/hr IV.SIG .STK-MED ONE Rx#:[id number] NS Inj 500 ML @ Wide Open IV. 500 / 500 SIG BOLUS ONE Rx#:[id number] Oral 0 / 0 Output: Urine Amount (Catheter) 200 / 200 Indwelling Urethral Catheter 200 / 200 Wound Drainage 4550 / 4550 # 1 Left Lateral Back 2100 / 2100 # 2 Right Lateral Back 2450 / 2450 - Constitutional no acute distress - Routine HEENT Exam Eye: Present: EOMI - Routine Neck Exam Present: supple - Routine Cardiovascular Exam Present: RRR - Routine Abdominal Exam Present: soft, normoactive bowel sounds - Routine Neurological Exam Present: oriented X3 - Urinary Catheter Management Indwelling Urethral Catheter Cath placed during this visit: yes Reason for continuing: Chronic Urinary Retention Insertion date: 04/30/18 Insertion time: 08:28 Assessment and Plan - Assessment (1) Acute renal failure (ARF) Code(s): N17.9 - Acute kidney failure, unspecified Status: Acute Qualifiers: Acute renal failure type: unspecified Qualified Code(s): N17.9 - Acute kidney failure, unspecified Plan: Patient has obstructive uropathy and urology has been consulted, plan for after bilateral nephrostomy tube creatinine declined potassium is declining to 5.4 there is no indication for dialysis Follow PSA and urological evaluation Follow BMP Avoid nephrotoxins (2) Prostate mass Code(s): N42.9 - Disorder of prostate, unspecified Status: Acute (3) Ureter obstruction Code(s): N13.5 - Crossing vessel and stricture of ureter without hydronephrosis Status: Acute (4) Hyponatremia Code(s): E87.1 - Hypo-osmolality and hyponatremia Status: Acute (5) Hyperkalemia Code(s): E87.5 - Hyperkalemia Status: Acute - Plan Due to renal failure give Rocaela
[2018-05-01] MEDS: Senna/Docusate Sodium 8.6/50 MG Tablet PO SCH ×2 (13:41→21:04)
--- NOTE | 2018-05-01 17:31 | P.PNIM ---
Subjective Interval history: Patient denies any chest pain or shortness of breath. Reports bilateral nephrostomy pain is under control. Patient says he did not know about abdominal masses. Physical Exam Vital signs: Vital Signs 04/30/18 21:54 04/30/18 22:24 04/30/18 22:46 Temperature 98.7 F Pulse Rate 68 66 Respiratory Rate 24 23 14 Blood Pressure 130/78 126/76 Pulse Oximetry 95 95 04/30/18 22:54 04/30/18 23:44 05/01/18 00:00 Temperature 98.6 F Pulse Rate 57 L 61 Respiratory Rate 17 15 Blood Pressure 139/69 133/60 Pulse Oximetry 96 98 96 05/01/18 02:00 05/01/18 04:00 05/01/18 06:00 Temperature 98.7 F Pulse Rate 66 63 60 Respiratory Rate 17 Blood Pressure 152/73 H Pulse Oximetry 96 05/01/18 08:00 05/01/18 10:00 05/01/18 12:00 Temperature 97.5 F L 97.8 F Pulse Rate 69 66 70 Respiratory Rate 28 H 31 H Blood Pressure 187/86 H 147/67 H Pulse Oximetry 96 94 L 05/01/18 14:00 Temperature Pulse Rate 67 Respiratory Rate Blood Pressure Pulse Oximetry Intake & Output 04/30/18 05/01/18 05/01/18 18:59 06:59 18:59 Intake Total 500 / 500 1100 / 1100 985 / 985 Output Total 4750 / 4750 Balance 500 / 500 -3650 / -3650 985 / 985 Weight 71.2 kg Intake: IV 500 / 500 1100 / 1100 985 / 985 NS Inj 1,000 ML @ 150 mls/hr IV 1000 / 1000 985 / 985 .CONT .Q6H40M [facility] Rx#: [id number] Levaquin 500 mg Premix Inj 500 100 / 100 mg In 100 ml @ 0 mls/hr IV.SIG .STK-MED ONE Rx#:[id number] NS Inj 500 ML @ Wide Open IV. 500 / 500 SIG BOLUS ONE Rx#:[id number] Oral 0 / 0 Output: Urine Amount (Catheter) 200 / 200 Indwelling Urethral Catheter 200 / 200 Wound Drainage 4550 / 4550 # 1 Left Lateral Back 2100 / 2100 # 2 Right Lateral Back 2450 / 2450 Narrative: GENERAL: sitting up in bed. Appears comfortable. Alert and oriented 3. SKIN: Warm and dry. HEAD: Normocephalic. EYES: No scleral icterus. No injection or drainage. NECK: Supple, trachea midline. No JVD . CARDIOVASCULAR: Regular rate and rhythm without murmurs, gallops, or rubs. RESPIRATORY: Breath sounds equal bilaterally. No accessory muscle use. GASTROINTESTINAL: Abdomen soft, non-tender, nondistended. Bilateral nephrostomy tubes . MUSCULOSKELETAL: No cyanosis, or edema. BACK: Nontender without obvious deformity. No CVA tenderness. - Urinary Catheter Management Indwelling Urethral Catheter Cath placed during this visit: yes Reason for continuing: Chronic Urinary Retention Insertion date: 04/30/18 Insertion time: 08:28 Results - Labs CBC & Chem 7: 05/01/18 03:22 05/01/18 11:00 Laboratory Results - last 24 hr 04/30/18 04/30/18 04/30/18 16:45 18:25 18:25 WBC RBC Hgb Hct MCV MCH MCHC RDW Plt Count MPV Neut % (Auto) Lymph % (Auto) Clay % (Auto) Eos % (Auto) Baso % (Auto) Neut # (Auto) Lymph # (Auto) Clay # (Auto) Eos # (Auto) Baso # (Auto) WBC Differential Differential Comment PT 11.8 H INR 1.2 APTT 32.9 H Fibrinogen 322 Sodium 127 L Potassium 5.5 H Chloride 92 L Carbon Dioxide 20.8 L Anion Gap 14 BUN 83 H Creatinine 8.43 H Estimated GFR 6 L Random Glucose 105 Calcium 8.0 L Urine Color Urine Clarity Urine pH Ur Specific [place] Urine Protein Urine Glucose (UA) Urine Ketones Urine Occult Blood Urine Nitrate Urine Bilirubin Urine Urobilinogen Ur Leukocyte Esterase Urine RBC Urine WBC Urine WBC Clumps Ur Squamous Epith Cells Urine Mucus Micro UA Comment Urine Culture Comments 04/30/18 05/01/18 05/01/18 22:33 03:22 03:22 WBC 14.1 H RBC 4.12 L Hgb 12.6 L Hct 37.9 L MCV 92.1 MCH 30.7 MCHC 33.3 RDW 13.4 Plt Count 306 MPV 7.6 Neut % (Auto) 89.6 H Lymph % (Auto) 3.5 L Clay % (Auto) 6.0 Eos % (Auto) 0.8 Baso % (Auto) 0.1 Neut # (Auto) 12.7 H Lymph # (Auto) 0.5 L Clay # (Auto) 0.8 Eos # (Auto) 0.1 Baso # (Auto) 0.0 WBC Differential . Differential Comment Auto diff final PT INR APTT Fibrinogen Sodium 129 L 136 Potassium 5.4 H Chloride 102 D Carbon Dioxide 23.4 Anion Gap 11 BUN 56 H Creatinine 4.61 H Estimated GFR 12 L Random Glucose 90 Calcium 8.1 L Urine Color Urine Clarity Urine pH Ur Specific [place] Urine Protein Urine Glucose (UA) Urine Ketones Urine Occult Blood Urine Nitrate Urine Bilirubin Urine Urobilinogen Ur Leukocyte Esterase Urine RBC Urine WBC Urine WBC Clumps Ur Squamous Epith Cells Urine Mucus Micro UA Comment Urine Culture Comments 05/01/18 05/01/18 05/01/18 10:50 10:50 11:00 WBC RBC Hgb Hct MCV MCH MCHC RDW Plt Count MPV Neut % (Auto) Lymph % (Auto) Clay % (Auto) Eos % (Auto) Baso % (Auto) Neut # (Auto) Lymph # (Auto) Clay # (Auto) Eos # (Auto) Baso # (Auto) WBC Differential Differential Comment PT INR APTT Fibrinogen Sodium 139 Potassium Chloride Carbon Dioxide Anion Gap BUN Creatinine Estimated GFR Random Glucose Calcium Urine Color Yellow Red Urine Clarity Hazy H Hazy H Urine pH 5.0 5.0 Ur Specific [place] 1.015 1.013 Urine Protein Negative 30 H Urine Glucose (UA) Negative Negative Urine Ketones Trace Trace Urine Occult Blood Large H Large H Urine Nitrate Negative Negative Urine Bilirubin Negative Negative Urine Urobilinogen Less than 2 Less than 2 Ur Leukocyte Esterase Negative Small H Urine RBC 24 H Urine WBC 6 H 34 H Urine WBC Clumps Few H Ur Squamous Epith Cells <1 Urine Mucus Few H Few H Micro UA Comment Cath-culture not ind Cath-culture ind Urine Culture Comments Cath-cult not ind Cath-cult indicated Microbiology 04/30/18 16:45 Blood - Peripheral Aerobic Blood Culture - Preliminary No growth in 1 day 04/30/18 16:45 Blood - Peripheral Anaerobic Blood Culture - Preliminary No growth in 1 day 04/30/18 16:40 Blood - Peripheral Aerobic Blood Culture - Preliminary No growth in 1 day 04/30/18 16:40 Blood - Peripheral Anaerobic Blood Culture - Preliminary No growth in 1 day - Imaging Impressions Nephrostomy 04/30/18 00:00 CONCLUSION: 1. Uncomplicated bilateral nephrostomy tubes placed as above. Assessment and Plan - Assessment (1) Acute renal failure (ARF) Code(s): N17.9 - Acute kidney failure, unspecified Status: Acute (2) Ureter obstruction Code(s): N13.5 - Crossing vessel and stricture of ureter without hydronephrosis Status: Acute (3) Leukocytosis Code(s): D72.829 - Elevated white blood cell count, unspecified Status: Acute - Plan //Acute renal failure secondary to ureter obstruction -This condition is complicated with many factors with this significant pelvic mass, likely prostate cancer, no urinary output, hydroureter and hydronephrosis , electrolyte abnormalities, patient with medical condition that could become rather life-threatening. Patient could become septic, going acute respiratory failure, hypotensive. Patient will need closer management in the ICU for care. patient may need urgent percutaneous nephrostomy tubes. -CT scan showed a rather large mass 9.4 x 7.4 cm in the pelvis contiguous with the prostate gland with bilateral hydronephrosis and hydroureter with obstruction caused by pelvic mass. There were sclerotic focus in T8 which could be metastatic. Extensive bilateral pelvic lymphadenopathy -Ultrasound was performed which did show bilateral hydronephrosis, wall thickening of the urinary bladder -There is no urinary output despite replacement of Lux, CT review was performed and Lux is in place, however bladder seems rather decompressed and small. It appears that the mass has surrounded the bladder possible obstructing the ureters. -Patient was given 500 cc of IV fluids in the emergency department, will give another liter of normal saline, continue IV fluids at 150 cc an hour, monitor for any fluid overload, reevaluate with BMP at 1600 today. Laboratory findings indicative of hypervolemic renal failure -We will need to monitor renal function to see if there is any improvement after IV fluids -Urology was consulted who indicated the patient will need cystoscopy performed. Requesting the patient be transferred to [facility] for further evaluation. Cystoscopy cannot be performed at [place]. Urologist recommending IV fluids administration, monitor renal function to see if there is any improvement. -Nephrology consulted for further recommendations -Will check PSA -Discussed with Dr Andino from critical care who has been aware of the patient since he is in ICU, he is concerned about the patient's renal status, follow up labs have not improved with IV fluids, still no urine output from lux, bicarb slowly worsening. Dr Andino discussed with Interventional Radiologist Dr Grimm about bilat percutaneous nephrostomy tubes for appropriate management and improvement of patient's clinical condition. Dr Grimm spoke with Dr Pope, Urology, concerning the procedures. -Interventional radiology was consulted for Bilateral percutaneous nephrostomy tubes. = Appreciate excellence consultant assistance. Continue to monitor. Nephrology, urology following. //Suspected sepsis -Tachypnea, leukocytosis, suspected UTI. -= Nephrology and urology are following. Continue with bilateral nephrostomy tubes. Due to leukocytosis and tachypnea, I have ordered urinalysis, a bilateral nephrostomy tubes. Follow-up culture results. Will start on broad- spectrum antibiotics. Follow-up cultures.. Lactate pending /Abdominal mass seen on imaging. Likely malignancy. Urology is following. Will consult oncology. //Electrolyte abnormalities -Patient with life-threatening abnormalities with significant hyponatremia, hyperkalemia -Obtain EKG -We will continue to monitor electrolytes after IV hydration -Consider Kayexalate, sodium bicarb, calcium gluconate, D5, insulin if potassium worsens or does not improve -Monitor sodium every 6 hours = Nephrology following. Appreciate assistance. Potassium 5.4. Repeat tomorrow. DVT prevention -Sequential compression devices, avoid chemical prophylaxis at this time secondary to likely procedure Discharge Planning: Pending excellence consultant clearance. (1) Acute renal failure (ARF) Qualifiers: Acute renal failure type: unspecified Qualified Code(s): N17.9 - Acute kidney failure, unspecified
--- NOTE | 2018-05-01 17:45 | MB ---
cc: Haim Pope DO DATE: 05/01/2018 HISTORY OF PRESENT ILLNESS: Mr. Tang is a pleasant 83-year-old male who presented with obstructive uropathy, with bilateral hydroureteronephrosis and a creatinine above 8. He has had a Anderson catheter in and out and has been followed by Dr. Bowman. He was scheduled to undergo cystoscopy on Wednesday, tomorrow, but he was admitted in acute renal failure. A Anderson was placed when he was initially admitted to [facility], but there was not much urine output at that time. He underwent bilateral percutaneous nephrostomy tube placement yesterday and his urine output increased dramatically. His creatinine went down to the 4 range today and he is feeling better at present. His creatinine was at 1.1 in March, earlier this last month. The patient states he did have a prostate biopsy approximately 11 years ago, which was negative. PAST MEDICAL HISTORY: Includes medical history includes hyperlipidemia, BPH with obstruction, with lower urinary tract symptoms, nocturia x 4. PAST SURGICAL HISTORY: Prostate needle biopsy 11 years ago, which was negative. FAMILY HISTORY: Denies any family history of prostate cancer. SOCIAL HISTORY: Denies smoking, drinking presently, but was a former smoker. REVIEW OF SYSTEMS: Notes lower pelvic pain, abdominal pain. Denies fever, chills, gait disturbances, bleeding disorders, chest pain, constipation. Remaining review of systems were reviewed and were negative. PHYSICAL EXAMINATION: VITAL SIGNS: Presently 97.8, heart rate 67, respiratory rate is 31, 147/67 his blood pressure, 94% on room air. GENERAL: He is well-developed, well-nourished, 83-year-old male in no acute distress. HEENT: Normocephalic, atraumatic. Pupils equal, round, regular and reactive to light. Extraocular movements intact. NECK: Supple. HEART: Regular rate and rhythm. LUNGS: Clear. ABDOMEN: Soft. A little suprapubic tenderness is noted. Anderson catheter is in place draining sukhwinder urine and bilateral percutaneous nephrostomy tubes are in place draining blood-tinged urine. EXTREMITIES: Show no cyanosis, clubbing or edema. LABORATORY DATA: White count 14.1, hemoglobin 12.6, hematocrit 37.9, platelet count of 3/6. Sodium 136, potassium 5.4, chloride 102, CO2 23.4, BUN of 56, creatinine of 4.61 today, down from 8.2 on admission. His glucose is 90. PSA is currently pending. IMAGING: Again, CT scan of the abdomen. CT scan of the abdomen and pelvis showed a large mass in the pelvis contiguous with the prostate gland. Prostate carcinoma is suspected. Extensive bilateral pelvic lymphadenopathy is noted, with bilateral hydronephrosis and hydroureter also identified. ASSESSMENT AND PLAN: This is an 83-year-old male with acute renal failure and obstructive uropathy, with evidence of a large prostatic gland with pelvic adenopathy, suggestive of prostate cancer. Recommend maintaining nephrostomy tubes to allow acute renal failure to resolve. Maintain Anderson catheter for now. We will contact Dr. Bowman in the a.m., as he was scheduled to undergo cystoscopy in the office on Wednesday. Thank you for the consult and allowing me to participate in the care of this patient. DO TOMASZ Sanchez , 03:19 PM , 05:44 PM
[2018-05-01] MEDS: Sodium Chloride 0.45 % Inj 1,000 ML IV.CONT SCH (21:04)
[2018-05-02] MEDS: Piperacil/Tazo 2.25 GM Premix 50 ML IV.SIG SCH ×3 (03:25→19:01)
[2018-05-02] MEDS: Sodium Chloride 0.45 % Inj 1,000 ML IV.CONT SCH ×3 (03:26→22:36)
[2018-05-02] MEDS: Acetaminophen 325 MG Tablet PO PRN ×2 (05:42→22:32)
[2018-05-02] MEDS: Senna/Docusate Sodium 8.6/50 MG Tablet PO SCH ×2 (08:50→21:08)
[2018-05-02 11:37] LABS: Baso % (Auto) 0.2 % (0.0-2.0); Eos # (Auto) 0.3 th/mm3 (0.0-0.4); Eos % (Auto) 2.2 % (0.0-4.0); Hematocrit 35.2 % (39.0-51.0); Hemoglobin 11.9 gm/dL (13.0-17.0); Lymph # (Auto) 1.1 th/mm3 (1.0-4.8); Mean Corpuscular HGB Conc 33.8 % (32.0-36.0); Mean Corpuscular Hemoglobin 31.2 pg (27.0-34.0); Mean Corpuscular Volume 92.2 fL (80.0-100.0); Mean Platelet Volume 7.3 fL (7.0-11.0); Mono # (Auto) 0.8 th/mm3 (0.0-0.9); Mono % (Auto) 6.3 % (0.0-8.0); Neut # (Auto) 9.8 th/mm3 (1.8-7.7); Neut % (Auto) 82.3 % (16.0-70.0); Platelet Count 358 th/mm3 (150-450); Red Blood Count 3.82 mil/mm3 (4.50-5.90); Red Cell Distribution Width 12.7 % (11.6-17.2); White Blood Count 11.9 th/mm3 (4.0-11.0)
--- NOTE | 2018-05-02 11:38 | P.PNIM ---
Subjective Interval history: Patient says he is feeling right. Reports pain is under control. Denies any chest pain or shortness of breath. Physical Exam Vital signs: Vital Signs 05/01/18 12:00 05/01/18 13:00 05/01/18 14:00 Temperature 97.8 F Pulse Rate 70 60 67 Respiratory Rate 31 H 21 25 H Blood Pressure 147/67 H 146/65 H 146/74 H Pulse Oximetry 94 L 94 L 94 L 05/01/18 15:05 05/01/18 16:00 05/01/18 16:01 Temperature Pulse Rate 75 65 Respiratory Rate 24 Blood Pressure 174/62 H 142/67 H Pulse Oximetry 97 05/01/18 18:00 05/01/18 19:00 05/01/18 20:00 Temperature Pulse Rate 71 71 65 Respiratory Rate 25 H 26 H 20 Blood Pressure 177/81 H 168/81 H 157/74 H Pulse Oximetry 94 L 97 96 05/01/18 20:16 05/01/18 22:00 05/02/18 00:00 Temperature 98.0 F Pulse Rate 61 58 L Respiratory Rate 20 Blood Pressure 140/66 Pulse Oximetry 94 L 100 05/02/18 02:00 05/02/18 04:00 05/02/18 05:57 Temperature 98.2 F Pulse Rate 63 69 65 Respiratory Rate 20 Blood Pressure 105/55 L Pulse Oximetry 100 Intake & Output 05/01/18 05/02/18 05/02/18 18:59 06:59 18:59 Intake Total 985 / 985 2100 / 2100 Output Total 0 / 0 1320 / 1320 Balance 985 / 985 780 / 780 Weight 72.8 kg Intake: IV 985 / 985 2100 / 2100 NS Inj 1,000 ML @ 150 mls/hr IV 985 / 985 1000 / 1000 .CONT .Q6H40M [facility] Rx#: [id number] 1/2 Normal Saline Inj 1,000 ML 1000 / 1000 @ 125 mls/hr IV.CONT .Q8H [facility] Rx#:[id number] Zosyn 2.25 GM Premix 50 ML @ 100 / 100 100 mls/hr IV.SIG Q8H [facility] Rx#: [id number] Oral 0 / 0 0 / 0 Output: Stool 0 / 0 0 / 0 Urine Amount (Catheter) 20 / 20 Indwelling Urethral Catheter 20 / 20 Wound Drainage 1300 / 1300 # 1 Left Lateral Back 650 / 650 # 2 Right Lateral Back 650 / 650 Other: # Bowel Movements 0 Narrative: GENERAL: sitting up in bed. Appears comfortable. Alert and oriented 3. Exam unchanged today. SKIN: Warm and dry. HEAD: Normocephalic. EYES: No scleral icterus. No injection or drainage. NECK: Supple, trachea midline. No JVD . CARDIOVASCULAR: Regular rate and rhythm without murmurs, gallops, or rubs. RESPIRATORY: Breath sounds equal bilaterally. No accessory muscle use. GASTROINTESTINAL: Abdomen soft, non-tender, nondistended. Bilateral nephrostomy tubes slightly bloody urine.. MUSCULOSKELETAL: No cyanosis, or edema. BACK: Nontender without obvious deformity. No CVA tenderness. - Urinary Catheter Management Indwelling Urethral Catheter Cath placed during this visit: yes Reason for continuing: Chronic Urinary Retention Insertion date: 04/30/18 Insertion time: 08:28 Results - Labs CBC & Chem 7: 05/02/18 11:02 05/01/18 11:00 Laboratory Results - last 24 hr 05/01/18 05/01/18 05/01/18 10:50 10:50 11:00 WBC RBC Hgb Hct MCV MCH MCHC RDW Plt Count MPV Neut % (Auto) Lymph % (Auto) [place] % (Auto) Eos % (Auto) Baso % (Auto) Neut # (Auto) Lymph # (Auto) [place] # (Auto) Eos # (Auto) Baso # (Auto) WBC Differential Differential Comment Sodium 139 Lactic Acid Urine Color Yellow Red Urine Clarity Hazy H Hazy H Urine pH 5.0 5.0 Ur Specific [place] 1.015 1.013 Urine Protein Negative 30 H Urine Glucose (UA) Negative Negative Urine Ketones Trace Trace Urine Occult Blood Large H Large H Urine Nitrate Negative Negative Urine Bilirubin Negative Negative Urine Urobilinogen Less than 2 Less than 2 Ur Leukocyte Esterase Negative Small H Urine RBC 24 H Urine WBC 6 H 34 H Urine WBC Clumps Few H Ur Squamous Epith Cells <1 Urine Mucus Few H Few H Micro UA Comment Cath-culture not ind Cath-culture ind Urine Culture Comments Cath-cult not ind Cath-cult indicated 05/01/18 05/02/18 18:07 11:02 WBC 11.9 H RBC 3.82 L Hgb 11.9 L Hct 35.2 L MCV 92.2 MCH 31.2 MCHC 33.8 RDW 12.7 Plt Count 358 MPV 7.3 Neut % (Auto) 82.3 H Lymph % (Auto) 9.0 [place] % (Auto) 6.3 Eos % (Auto) 2.2 Baso % (Auto) 0.2 Neut # (Auto) 9.8 H Lymph # (Auto) 1.1 [place] # (Auto) 0.8 Eos # (Auto) 0.3 Baso # (Auto) 0.0 WBC Differential . Differential Comment Auto diff final Sodium Lactic Acid 1.1 Urine Color Urine Clarity Urine pH Ur Specific [place] Urine Protein Urine Glucose (UA) Urine Ketones Urine Occult Blood Urine Nitrate Urine Bilirubin Urine Urobilinogen Ur Leukocyte Esterase Urine RBC Urine WBC Urine WBC Clumps Ur Squamous Epith Cells Urine Mucus Micro UA Comment Urine Culture Comments Microbiology 04/30/18 16:45 Blood - Peripheral Aerobic Blood Culture - Preliminary No growth in 2 days 04/30/18 16:45 Blood - Peripheral Anaerobic Blood Culture - Preliminary No growth in 2 days 04/30/18 16:40 Blood - Peripheral Aerobic Blood Culture - Preliminary No growth in 2 days 04/30/18 16:40 Blood - Peripheral Anaerobic Blood Culture - Preliminary No growth in 2 days - Imaging Impressions Nephrostomy 04/30/18 00:00 CONCLUSION: 1. Uncomplicated bilateral nephrostomy tubes placed as above. Assessment and Plan - Assessment (1) Acute renal failure (ARF) Code(s): N17.9 - Acute kidney failure, unspecified Status: Acute (2) Ureter obstruction Code(s): N13.5 - Crossing vessel and stricture of ureter without hydronephrosis Status: Acute (3) Leukocytosis Code(s): D72.829 - Elevated white blood cell count, unspecified Status: Acute - Plan //Acute renal failure secondary to ureter obstruction -This condition is complicated with many factors with this significant pelvic mass, likely prostate cancer, no urinary output, hydroureter and hydronephrosis , electrolyte abnormalities, patient with medical condition that could become rather life-threatening. Patient could become septic, going acute respiratory failure, hypotensive. Patient will need closer management in the ICU for care. patient may need urgent percutaneous nephrostomy tubes. -CT scan showed a rather large mass 9.4 x 7.4 cm in the pelvis contiguous with the prostate gland with bilateral hydronephrosis and hydroureter with obstruction caused by pelvic mass. There were sclerotic focus in T8 which could be metastatic. Extensive bilateral pelvic lymphadenopathy -Ultrasound was performed which did show bilateral hydronephrosis, wall thickening of the urinary bladder -There is no urinary output despite replacement of Lux, CT review was performed and Lux is in place, however bladder seems rather decompressed and small. It appears that the mass has surrounded the bladder possible obstructing the ureters. -Patient was given 500 cc of IV fluids in the emergency department, will give another liter of normal saline, continue IV fluids at 150 cc an hour, monitor for any fluid overload, reevaluate with BMP at 1600 today. Laboratory findings indicative of hypervolemic renal failure -We will need to monitor renal function to see if there is any improvement after IV fluids -Urology was consulted who indicated the patient will need cystoscopy performed. Requesting the patient be transferred to [facility] for further evaluation. Cystoscopy cannot be performed at [facility] [place]. Urologist recommending IV fluids administration, monitor renal function to see if there is any improvement. -Nephrology consulted for further recommendations -Will check PSA -Discussed with Dr Andino from critical care who has been aware of the patient since he is in ICU, he is concerned about the patient's renal status, follow up labs have not improved with IV fluids, still no urine output from lux, bicarb slowly worsening. Dr Andino discussed with Interventional Radiologist Dr Grimm about bilat percutaneous nephrostomy tubes for appropriate management and improvement of patient's clinical condition. Dr Grimm spoke with Dr Pope, Urology, concerning the procedures. -Interventional radiology was consulted for Bilateral percutaneous nephrostomy tubes. = Appreciate marketing operations consultant assistance. Continue to monitor. Nephrology, urology following. = 05/02. Long discussion with daughter Whit and. Cell phone [phone]. Patient gives permission to speak with daughter. Will await oncology evaluation. Repeat labs pending. //Suspected sepsis //UTI -Tachypnea, leukocytosis, suspected UTI. -= Nephrology and urology are following. Continue with bilateral nephrostomy tubes. Due to leukocytosis and tachypnea, I have ordered urinalysis, a bilateral nephrostomy tubes. Follow-up culture results. Will start on broad- spectrum antibiotics. Follow-up cultures.. Lactate pending = 05/02. Follow-up urine culture results. /Abdominal mass seen on imaging. Likely malignancy. = Likely bladder cancer. = Urology is following. Oncology consult pending. //Hypertension With systolic blood pressures up to the 180s today. We will order Vasotec as needed for hypertension. //Electrolyte abnormalities -Patient with life-threatening abnormalities with significant hyponatremia, hyperkalemia -Obtain EKG -We will continue to monitor electrolytes after IV hydration -Consider Kayexalate, sodium bicarb, calcium gluconate, D5, insulin if potassium worsens or does not improve -Monitor sodium every 6 hours = Nephrology following. Appreciate assistance. Potassium 5.4. Repeat tomorrow. = P let us pending. DVT prevention -Sequential compression devices, avoid chemical prophylaxis at this time secondary to likely further procedures Discharge Planning: Pending marketing operations consultant clearance. (1) Acute renal failure (ARF) Qualifiers: Acute renal failure type: unspecified Qualified Code(s): N17.9 - Acute kidney failure, unspecified
[2018-05-02 13:13] LABS: Anion Gap 7 meq/L (5-15); Blood Urea Nitrogen 17 mg/dL (7-18); Calcium 8.2 mg/dL (8.5-10.1); Carbon Dioxide 26.6 meq/L (21.0-32.0); Chloride 107 meq/L (98-107); Glomerular Filtration Rate Greater Than 89 mL/min (>89); Glucose,Random 93 mg/dL (74-106); Potassium 4.5 meq/L (3.5-5.1); Sodium 141 meq/L (136-145)
--- NOTE | 2018-05-02 15:19 | P.PNNP ---
Subjective Interval history: Patient doing better Physical Exam Vital signs: Vital Signs 05/01/18 16:00 05/01/18 16:01 05/01/18 18:00 Temperature Pulse Rate 65 71 Respiratory Rate 25 H Blood Pressure 142/67 H 177/81 H Pulse Oximetry 94 L 05/01/18 19:00 05/01/18 20:00 05/01/18 20:16 Temperature Pulse Rate 71 65 Respiratory Rate 26 H 20 Blood Pressure 168/81 H 157/74 H Pulse Oximetry 97 96 94 L 05/01/18 22:00 05/02/18 00:00 05/02/18 01:00 Temperature 98.0 F Pulse Rate 61 58 L 58 L Respiratory Rate 20 16 Blood Pressure 140/66 145/67 H Pulse Oximetry 100 94 L 05/02/18 02:00 05/02/18 03:00 05/02/18 04:00 Temperature 98.2 F Pulse Rate 63 68 67 Respiratory Rate 39 H 23 25 H Blood Pressure 165/78 H 162/77 H 181/79 H Pulse Oximetry 92 L 94 L 96 05/02/18 04:20 05/02/18 05:00 05/02/18 05:57 Temperature Pulse Rate 64 68 65 Respiratory Rate 22 22 Blood Pressure 158/75 H 192/83 H Pulse Oximetry 95 95 05/02/18 06:00 05/02/18 07:00 05/02/18 07:22 Temperature Pulse Rate 68 69 66 Respiratory Rate 22 23 27 H Blood Pressure 168/81 H 157/78 H 175/82 H Pulse Oximetry 95 97 96 05/02/18 07:30 05/02/18 08:00 05/02/18 08:30 Temperature 98.3 F Pulse Rate 72 67 65 Respiratory Rate 37 H 23 20 Blood Pressure 157/77 H 167/76 H 155/75 H Pulse Oximetry 97 95 96 05/02/18 09:00 05/02/18 09:01 05/02/18 09:30 Temperature Pulse Rate 68 68 66 Respiratory Rate 29 H 22 28 H Blood Pressure 163/111 H 182/82 H Pulse Oximetry 96 97 97 05/02/18 09:43 05/02/18 10:00 05/02/18 10:30 Temperature Pulse Rate 65 64 67 Respiratory Rate 26 H 22 22 Blood Pressure 174/85 H 162/80 H 180/83 H Pulse Oximetry 98 96 97 05/02/18 10:41 05/02/18 11:00 05/02/18 11:03 Temperature Pulse Rate 68 66 66 Respiratory Rate 25 H 22 29 H Blood Pressure 168/76 H 168/78 H Pulse Oximetry 96 95 98 05/02/18 11:05 05/02/18 11:18 05/02/18 11:19 Temperature Pulse Rate 64 64 65 Respiratory Rate 21 21 23 Blood Pressure 173/81 H 168/81 H 174/80 H Pulse Oximetry 95 97 97 05/02/18 11:30 05/02/18 12:00 05/02/18 14:00 Temperature 98.3 F Pulse Rate 68 65 67 Respiratory Rate 24 24 Blood Pressure 162/79 H 156/75 H Pulse Oximetry 97 96 Intake & Output 05/01/18 05/02/18 05/02/18 18:59 06:59 18:59 Intake Total 985 / 985 2100 / 2100 1000 / 1000 Output Total 0 / 0 1320 / 1320 Balance 985 / 985 780 / 780 1000 / 1000 Weight 72.8 kg Intake: IV 985 / 985 2100 / 2100 1000 / 1000 NS Inj 1,000 ML @ 150 mls/hr IV 985 / 985 1000 / 1000 .CONT .Q6H40M [facility] Rx#: [id number] 1/2 Normal Saline Inj 1,000 ML 1000 / 1000 1000 / 1000 @ 125 mls/hr IV.CONT .Q8H [facility] Rx#:[id number] Zosyn 2.25 GM Premix 50 ML @ 100 / 100 100 mls/hr IV.SIG Q8H [facility] Rx#: [id number] Oral 0 / 0 0 / 0 Output: Stool 0 / 0 0 / 0 Urine Amount (Catheter) 20 / 20 Indwelling Urethral Catheter 20 / 20 Wound Drainage 1300 / 1300 # 1 Left Lateral Back 650 / 650 # 2 Right Lateral Back 650 / 650 Other: # Bowel Movements 0 - Constitutional no acute distress - Routine HEENT Exam Head: Present: normocephalic - Routine Respiratory Exam Present: CTA bilaterally - Routine Cardiovascular Exam Present: RRR - Routine Abdominal Exam Present: soft, normoactive bowel sounds - Routine Extremities Exam Present: full ROM - Urinary Catheter Management Indwelling Urethral Catheter Cath placed during this visit: yes Reason for continuing: Chronic Urinary Retention Insertion date: 04/30/18 Insertion time: 08:28 Assessment and Plan - Assessment (1) Acute renal failure (ARF) Code(s): N17.9 - Acute kidney failure, unspecified Status: Acute Qualifiers: Acute renal failure type: unspecified Qualified Code(s): N17.9 - Acute kidney failure, unspecified (2) Prostate mass Code(s): N42.9 - Disorder of prostate, unspecified Status: Acute (3) Ureter obstruction Code(s): N13.5 - Crossing vessel and stricture of ureter without hydronephrosis Status: Acute (4) Hyponatremia Code(s): E87.1 - Hypo-osmolality and hyponatremia Status: Acute (5) Hyperkalemia Code(s): E87.5 - Hyperkalemia Status: Acute - Plan Acute renal failure due to obstructive uropathy which is resolved after bilateral nephrostomy tube placement creatinine back to normal Urology following Nephrology to sign off
--- NOTE | 2018-05-02 15:37 | P.CONURO ---
History of Present Illness Service: Urology Consult date: 05/02/18 Requesting Physician: Simon Macario Reason for Consult: Bladder mass, FRANCISCO Primary Care Provider: Apolinar Murrell Family Provider: Apolinar Murrell Chief Complaint: Abdominal pain History of Present Illness: 83y.o M pt well known to our practice, he is a pt of Dr Bowman. He has h/o large prostate and retention suppose to have Cystoscopy and UDS today 05/02/18 but was admitted over the weekend for anuria and FRANCISCO. Nerphrology is on board. Had Cr >8 on admission, had bilateral hydronephrosis on CT as well as a bladder mass, possibly very large obstructing prostate vs bladder mass vs animal tech. He had b/ l nephrostomies placed and Cr now is 0.78. PCNs are mainly draining all his urine out and lux drains very small amount as well. He has no f/c/n/v, had BM , no pain. Urine is mostly clear yellow sometimes has a little blood tinged color. Dr Pope saw him on a weekend and transferred care to us Review of Systems All other systems reviewed negative except as stated in HPI PMFSH - History History Provided By: Patient - Medical History Medical History: Medical History (Last Updated 04/30/18 @ 17:11 by Jasper Camacho MD) BPH with obstruction/lower urinary tract symptoms Hyperlipidemia No significant past surgical history - Family History Family History: Family History (Last Updated 04/30/18 @ 12:17 by OPAL Sousa) Other No significant family history - Tobacco History Second Hand Smoke Exposure: No Tobacco Use In Past 30 Days: No Smoking Status: Former smoker Tobacco Type: Cigarettes - Alcohol History How Often Do You Have a Drink Containing Alcohol: Monthly or less - Substance Use History Substance History: No History of Abuse - Immunization History Tetanus Immunization: Unsure Hx Influenza Vaccine This Season: No Medications and Allergies Active Medications: Active Medications Acetaminophen (Tylenol) 650 mg PO Q4H PRN PRN Reason: Temp > 100.4 Last Admin: 05/02/18 05:42 Dose: 650 mg Al Hydroxide/Mg Hydroxide (Milk Of Magnesia Liq) 30 ml PO Q12H PRN PRN Reason: Mild Constipation Bisacodyl (Dulcolax Supp) 10 mg RECTAL DAILY PRN PRN Reason: SEVERE CONSITIPATION Enalaprilat (Vasotec Inj) 1.25 mg IV.PUSH Q6H PRN PRN Reason: SBP > 160 Last Admin: 05/02/18 11:20 Dose: 1.25 mg Piperacillin/Tazobactam/Dextrose (Zosyn 2.25 Gm Premix) 50 mls @ 100 mls/hr IV.SIG Q8H [facility] Last Admin: 05/02/18 11:20 Dose: 100 mls/hr Sodium Chloride (1/2 Normal Saline Inj) 1,000 mls @ 125 mls/hr IV.CONT .Q8H [facility] Last Admin: 05/02/18 15:03 Dose: 125 mls/hr Lactulose (Lactulose Liq) 30 ml PO DAILY PRN PRN Reason: SEVERE CONSITIPATION Last Admin: 05/02/18 09:44 Dose: 30 ml Ondansetron HCl (Zofran Inj) 4 mg IV.PUSH Q6H PRN PRN Reason: NAUSEA OR VOMITING Last Admin: 05/01/18 08:01 Dose: 4 mg Senna/Docusate Sodium (Kaya-Colace) 1 tab PO BID [facility] Last Admin: 05/02/18 08:50 Dose: 1 tab Sennosides (Senokot) 17.2 mg PO Q12H PRN PRN Reason: Moderate Constipation Tamsulosin HCl (Flomax) 0.4 mg PO DAILY [facility] Last Admin: 05/02/18 08:50 Dose: 0.4 mg Temazepam (Restoril) 15 mg PO HS PRN PRN Reason: INSOMNIA Allergies Allergy/AdvReac Type Severity Reaction Status Date / Time No Known Allergies Unknown Uncoded 03/31/18 20:53 Home Medications Medication Instructions Recorded Confirmed Type atorvastatin 40 mg PO DAILY 04/30/18 04/30/18 History tamsulosin [Flomax] 0.4 mg PO DAILY 04/30/18 04/30/18 History Physical Exam Vital Signs - 24 hr 05/01/18 16:00 05/01/18 16:01 05/01/18 18:00 Temperature Pulse Rate 65 71 Respiratory Rate 25 H Blood Pressure 142/67 H 177/81 H Pulse Oximetry 94 L 05/01/18 19:00 05/01/18 20:00 05/01/18 20:16 Temperature Pulse Rate 71 65 Respiratory Rate 26 H 20 Blood Pressure 168/81 H 157/74 H Pulse Oximetry 97 96 94 L 05/01/18 22:00 05/02/18 00:00 05/02/18 01:00 Temperature 98.0 F Pulse Rate 61 58 L 58 L Respiratory Rate 20 16 Blood Pressure 140/66 145/67 H Pulse Oximetry 100 94 L 05/02/18 02:00 05/02/18 03:00 05/02/18 04:00 Temperature 98.2 F Pulse Rate 63 68 67 Respiratory Rate 39 H 23 25 H Blood Pressure 165/78 H 162/77 H 181/79 H Pulse Oximetry 92 L 94 L 96 05/02/18 04:20 05/02/18 05:00 05/02/18 05:57 Temperature Pulse Rate 64 68 65 Respiratory Rate 22 22 Blood Pressure 158/75 H 192/83 H Pulse Oximetry 95 95 05/02/18 06:00 05/02/18 07:00 05/02/18 07:22 Temperature Pulse Rate 68 69 66 Respiratory Rate 22 23 27 H Blood Pressure 168/81 H 157/78 H 175/82 H Pulse Oximetry 95 97 96 05/02/18 07:30 05/02/18 08:00 05/02/18 08:30 Temperature 98.3 F Pulse Rate 72 67 65 Respiratory Rate 37 H 23 20 Blood Pressure 157/77 H 167/76 H 155/75 H Pulse Oximetry 97 95 96 05/02/18 09:00 05/02/18 09:01 05/02/18 09:30 Temperature Pulse Rate 68 68 66 Respiratory Rate 29 H 22 28 H Blood Pressure 163/111 H 182/82 H Pulse Oximetry 96 97 97 05/02/18 09:43 05/02/18 10:00 05/02/18 10:30 Temperature Pulse Rate 65 64 67 Respiratory Rate 26 H 22 22 Blood Pressure 174/85 H 162/80 H 180/83 H Pulse Oximetry 98 96 97 05/02/18 10:41 05/02/18 11:00 05/02/18 11:03 Temperature Pulse Rate 68 66 66 Respiratory Rate 25 H 22 29 H Blood Pressure 168/76 H 168/78 H Pulse Oximetry 96 95 98 05/02/18 11:05 05/02/18 11:18 05/02/18 11:19 Temperature Pulse Rate 64 64 65 Respiratory Rate 21 21 23 Blood Pressure 173/81 H 168/81 H 174/80 H Pulse Oximetry 95 97 97 05/02/18 11:30 05/02/18 12:00 05/02/18 14:00 Temperature 98.3 F Pulse Rate 68 65 67 Respiratory Rate 24 24 Blood Pressure 162/79 H 156/75 H Pulse Oximetry 97 96 Physical Exam: GENERAL: This is a well-nourished, well-developed patient, in no apparent distress. HEAD: Atraumatic. Normocephalic. No temporal or scalp tenderness. CARDIOVASCULAR: Regular rate and rhythm without murmurs, gallops, or rubs. RESPIRATORY: Clear to auscultation. Breath sounds equal bilaterally. No wheezes , rales, or rhonchi. GENITOURINARY: B/l PCNs and Lux are in place. Draining well MUSCULOSKELETAL: Extremities without clubbing, cyanosis, or edema. NEUROLOGICAL: Awake and alert. Laboratory Results - last 24 hr 05/01/18 05/02/18 05/02/18 18:07 11:02 12:27 WBC 11.9 H RBC 3.82 L Hgb 11.9 L Hct 35.2 L MCV 92.2 MCH 31.2 MCHC 33.8 RDW 12.7 Plt Count 358 MPV 7.3 Neut % (Auto) 82.3 H Lymph % (Auto) 9.0 [place] % (Auto) 6.3 Eos % (Auto) 2.2 Baso % (Auto) 0.2 Neut # (Auto) 9.8 H Lymph # (Auto) 1.1 [place] # (Auto) 0.8 Eos # (Auto) 0.3 Baso # (Auto) 0.0 WBC Differential . Differential Comment Auto diff final Sodium Potassium Chloride Carbon Dioxide Anion Gap BUN Creatinine Estimated GFR Random Glucose Lactic Acid 1.1 Calcium 05/02/18 12:27 WBC RBC Hgb Hct MCV MCH MCHC RDW Plt Count MPV Neut % (Auto) Lymph % (Auto) [place] % (Auto) Eos % (Auto) Baso % (Auto) Neut # (Auto) Lymph # (Auto) [place] # (Auto) Eos # (Auto) Baso # (Auto) WBC Differential Differential Comment Sodium 141 Potassium 4.5 D Chloride 107 Carbon Dioxide 26.6 Anion Gap 7 BUN 17 Creatinine 0.76 Estimated GFR Greater than 89 Random Glucose 93 Lactic Acid Calcium 8.2 L Microbiology 05/01/18 10:50 Urine Culture - Preliminary Clean Catch Urine No growth in 24 hours 04/30/18 16:45 Aerobic Blood Culture - Preliminary Blood - Peripheral No growth in 2 days Anaerobic Blood Culture - Preliminary No growth in 2 days 04/30/18 16:40 Aerobic Blood Culture - Preliminary Blood - Peripheral No growth in 2 days Anaerobic Blood Culture - Preliminary No growth in 2 days Result Diagrams: 05/02/18 12:27 05/02/18 12:27 Imaging: ITS Impressions Abdomen/Bladder Ultrasound 04/30/18 00:00 CONCLUSION: 1. Bilateral hydronephrosis. 2. Wall thickening of the urinary bladder. 3. Please refer to CT abdomen/pelvis for further details of the pelvic mass, not well seen sonographically. Chest X-Ray 04/30/18 00:00 CONCLUSION: Right basilar density could be atelectasis or infiltrate. Abdomen/Pelvis CT 04/30/18 10:10 CONCLUSION: 1. Large mass in the pelvis contiguous with the prostate gland. Prostate carcinoma is suspected. Correlation with PSA levels. 2. Extensive bilateral pelvic lymphadenopathy. 3. Sclerotic focus in T8 likely metastatic. 4. Bilateral hydronephrosis and hydroureter, likely obstruction caused by pelvic mass. Assessment and Plan - Plan 83 y.o M with Very large prostate and SIFUENTES and currently with FRANCISCO resolved post b /l PCNs placement - Continue care as per primary team - No additional intervention needed - Continue IV fluids and Flomax / Proscar daily - Once stable he can be d/c home with lux and PCN tubes - He will need to call our officer after d/c and schedule f/u with Dr Bowman for outpatient Cystoscopy next week Discussed Condition With: GEOGRAPHY HEAD and Dr Bowman attending
[2018-05-02] MEDS: Finasteride 5 MG Tablet PO SCH (15:59)
--- NOTE | 2018-05-02 22:07 | P.PN ---
Subjective Interval history: F/u obstructive uropathy Physical Exam Vital signs: Vital Signs 05/02/18 00:00 05/02/18 01:00 05/02/18 02:00 Temperature 98.0 F Pulse Rate 58 L 58 L 63 Respiratory Rate 20 16 39 H Blood Pressure 140/66 145/67 H 165/78 H Pulse Oximetry 100 94 L 92 L 05/02/18 03:00 05/02/18 04:00 05/02/18 04:20 Temperature 98.2 F Pulse Rate 68 67 64 Respiratory Rate 23 25 H 22 Blood Pressure 162/77 H 181/79 H 158/75 H Pulse Oximetry 94 L 96 95 05/02/18 05:00 05/02/18 05:57 05/02/18 06:00 Temperature Pulse Rate 68 65 68 Respiratory Rate 22 22 Blood Pressure 192/83 H 168/81 H Pulse Oximetry 95 95 05/02/18 07:00 05/02/18 07:22 05/02/18 07:30 Temperature Pulse Rate 69 66 72 Respiratory Rate 23 27 H 37 H Blood Pressure 157/78 H 175/82 H 157/77 H Pulse Oximetry 97 96 97 05/02/18 08:00 05/02/18 08:30 05/02/18 09:00 Temperature 98.3 F Pulse Rate 67 65 68 Respiratory Rate 23 20 29 H Blood Pressure 167/76 H 155/75 H Pulse Oximetry 95 96 96 05/02/18 09:01 05/02/18 09:30 05/02/18 09:43 Temperature Pulse Rate 68 66 65 Respiratory Rate 22 28 H 26 H Blood Pressure 163/111 H 182/82 H 174/85 H Pulse Oximetry 97 97 98 05/02/18 10:00 05/02/18 10:30 05/02/18 10:41 Temperature Pulse Rate 64 67 68 Respiratory Rate 22 22 25 H Blood Pressure 162/80 H 180/83 H 168/76 H Pulse Oximetry 96 97 96 05/02/18 11:00 05/02/18 11:03 05/02/18 11:05 Temperature Pulse Rate 66 66 64 Respiratory Rate 22 29 H 21 Blood Pressure 168/78 H 173/81 H Pulse Oximetry 95 98 95 05/02/18 11:18 05/02/18 11:19 05/02/18 11:30 Temperature Pulse Rate 64 65 68 Respiratory Rate 21 23 24 Blood Pressure 168/81 H 174/80 H 162/79 H Pulse Oximetry 97 97 97 05/02/18 12:00 05/02/18 12:30 05/02/18 13:00 Temperature 98.3 F Pulse Rate 65 65 65 Respiratory Rate 24 27 H 24 Blood Pressure 156/75 H 167/77 H 170/77 H Pulse Oximetry 96 96 96 05/02/18 13:30 05/02/18 14:00 05/02/18 14:30 Temperature 97.1 F L Pulse Rate 63 67 69 Respiratory Rate 30 H 35 H 34 H Blood Pressure 151/84 H 167/78 H 160/125 H Pulse Oximetry 96 96 96 05/02/18 14:38 05/02/18 14:48 05/02/18 15:00 Temperature Pulse Rate 66 65 81 Respiratory Rate 32 H 31 H 34 H Blood Pressure 167/109 H 167/81 H 169/89 H Pulse Oximetry 97 97 96 05/02/18 15:31 05/02/18 15:33 05/02/18 16:00 Temperature Pulse Rate 71 73 80 Respiratory Rate 37 H 39 H 34 H Blood Pressure 174/114 H 157/99 H Pulse Oximetry 96 97 95 05/02/18 16:01 05/02/18 16:25 05/02/18 16:27 Temperature Pulse Rate 83 72 78 Respiratory Rate 32 H 30 H 30 H Blood Pressure 192/88 H 222/98 H 164/95 H Pulse Oximetry 97 97 92 L 05/02/18 18:00 Temperature Pulse Rate 73 Respiratory Rate Blood Pressure Pulse Oximetry Intake & Output 05/02/18 05/02/18 05/03/18 06:59 18:59 06:59 Intake Total 2099 1530 / 1530 50 / 50 Output Total 1320 / 1320 1545 / 1545 Balance 780 / 780 -15 / -15 50 / 50 Weight 72.8 kg Intake: IV 2099 1050 / 1050 50 / 50 NS Inj 1,000 ML @ 150 mls/hr IV 1000 / 1000 .CONT .Q6H40M [facility] Rx#: [id number] 1/2 Normal Saline Inj 1,000 ML 1000 / 1000 1000 / 1000 @ 125 mls/hr IV.CONT .Q8H [facility] Rx#:[id number] Zosyn 2.25 GM Premix 50 ML @ 100 / 100 50 / 50 50 / 50 100 mls/hr IV.SIG Q8H [facility] Rx#: [id number] Oral 0 / 0 480 / 480 Output: Urine 0 / 0 Stool 0 / 0 0 / 0 Urine Amount (Catheter) Indwelling Urethral Catheter Wound Drainage 1300 / 1300 1525 / 1525 # 1 Left Lateral Back 650 / 650 800 / 800 # 2 Right Lateral Back 650 / 650 725 / 725 Other: # Bowel Movements 0 3 Narrative: GENERAL: sitting up in bed. Appears comfortable. Alert and oriented 3. SKIN: Warm and dry. CARDIOVASCULAR: Regular rate and rhythm without murmurs, gallops, or rubs. RESPIRATORY: Breath sounds equal bilaterally. No accessory muscle use. GASTROINTESTINAL: Abdomen soft, non-tender, nondistended. Bilateral nephrostomy tubes slightly bloody urine. MUSCULOSKELETAL: No cyanosis, or edema. BACK: Nontender without obvious deformity. No CVA tenderness. - Urinary Catheter Management Indwelling Urethral Catheter Cath placed during this visit: yes Reason for continuing: Chronic Urinary Retention Insertion date: 04/30/18 Insertion time: 08:28 Results - Labs CBC & Chem 7: 05/02/18 12:27 05/02/18 12:27 Laboratory Results - last 24 hr 05/02/18 05/02/18 05/02/18 11:02 12:27 12:27 WBC 11.9 H RBC 3.82 L Hgb 11.9 L Hct 35.2 L MCV 92.2 MCH 31.2 MCHC 33.8 RDW 12.7 Plt Count 358 MPV 7.3 Neut % (Auto) 82.3 H Lymph % (Auto) 9.0 Thayer % (Auto) 6.3 Eos % (Auto) 2.2 Baso % (Auto) 0.2 Neut # (Auto) 9.8 H Lymph # (Auto) 1.1 Thayer # (Auto) 0.8 Eos # (Auto) 0.3 Baso # (Auto) 0.0 WBC Differential . Differential Comment Auto diff final Sodium 141 Potassium 4.5 D Chloride 107 Carbon Dioxide 26.6 Anion Gap 7 BUN 17 Creatinine 0.76 Estimated GFR Greater than 89 Random Glucose 93 Calcium 8.2 L Microbiology 05/01/18 10:50 Clean Catch Urine Urine Culture - Preliminary No growth in 24 hours 04/30/18 16:45 Blood - Peripheral Aerobic Blood Culture - Preliminary No growth in 2 days 04/30/18 16:45 Blood - Peripheral Anaerobic Blood Culture - Preliminary No growth in 2 days 04/30/18 16:40 Blood - Peripheral Aerobic Blood Culture - Preliminary No growth in 2 days 04/30/18 16:40 Blood - Peripheral Anaerobic Blood Culture - Preliminary No growth in 2 days - Imaging ITS Impressions Abdomen/Bladder Ultrasound 04/30/18 00:00 CONCLUSION: 1. Bilateral hydronephrosis. 2. Wall thickening of the urinary bladder. 3. Please refer to CT abdomen/pelvis for further details of the pelvic mass, not well seen sonographically. Chest X-Ray 04/30/18 00:00 CONCLUSION: Right basilar density could be atelectasis or infiltrate. Abdomen/Pelvis CT 04/30/18 10:10 CONCLUSION: 1. Large mass in the pelvis contiguous with the prostate gland. Prostate carcinoma is suspected. Correlation with PSA levels. 2. Extensive bilateral pelvic lymphadenopathy. 3. Sclerotic focus in T8 likely metastatic. 4. Bilateral hydronephrosis and hydroureter, likely obstruction caused by pelvic mass. - Procedures bilateral nephrostomy tubes. Assessment and Plan - Assessment (1) Acute renal failure (ARF) Code(s): N17.9 - Acute kidney failure, unspecified Status: Acute (2) Ureter obstruction Code(s): N13.5 - Crossing vessel and stricture of ureter without hydronephrosis Status: Acute (3) Leukocytosis Code(s): D72.829 - Elevated white blood cell count, unspecified Status: Acute - Plan //Acute renal failure secondary to ureter obstruction -This condition is complicated with many factors with this significant pelvic mass, likely prostate cancer, no urinary output, hydroureter and hydronephrosis , electrolyte abnormalities, patient with medical condition that could become rather life-threatening. Patient could become septic, going acute respiratory failure, hypotensive. Patient will need closer management in the ICU for care. patient may need urgent percutaneous nephrostomy tubes. -CT scan showed a rather large mass 9.4 x 7.4 cm in the pelvis contiguous with the prostate gland with bilateral hydronephrosis and hydroureter with obstruction caused by pelvic mass. There were sclerotic focus in T8 which could be metastatic. Extensive bilateral pelvic lymphadenopathy -Ultrasound was performed which did show bilateral hydronephrosis, wall thickening of the urinary bladder -There is no urinary output despite replacement of Lux, CT review was performed and Lux is in place, however bladder seems rather decompressed and small. It appears that the mass has surrounded the bladder possible obstructing the ureters. -Patient was given 500 cc of IV fluids in the emergency department, will give another liter of normal saline, continue IV fluids at 150 cc an hour, monitor for any fluid overload, reevaluate with BMP at 1600 today. Laboratory findings indicative of hypervolemic renal failure -We will need to monitor renal function to see if there is any improvement after IV fluids -Urology was consulted who indicated the patient will need cystoscopy performed. Requesting the patient be transferred to [facility] for further evaluation. Cystoscopy cannot be performed at [place]. Urologist recommending IV fluids administration, monitor renal function to see if there is any improvement. -Nephrology consulted for further recommendations -F/u PSA -Discussed with Dr Andino from critical care who has been aware of the patient since he is in ICU, he is concerned about the patient's renal status, follow up labs have not improved with IV fluids, still no urine output from lux, bicarb slowly worsening. Dr Andino discussed with Interventional Radiologist Dr Grimm about bilat percutaneous nephrostomy tubes for appropriate management and improvement of patient's clinical condition. Dr Grimm spoke with Dr Pope, Urology, concerning the procedures. -Interventional radiology was consulted for Bilateral percutaneous nephrostomy tubes. = Appreciate business objects consultant assistance. Continue to monitor. Nephrology, urology following. = 05/02. Long discussion with daughter Whit. Cell phone [phone]. Patient gives permission to speak with daughter. Will await oncology evaluation. Repeat labs pending. //Suspected sepsis //UTI -Tachypnea, leukocytosis, suspected UTI. -= Nephrology and urology are following. Continue with bilateral nephrostomy tubes. Due to leukocytosis and tachypnea, I have ordered urinalysis, a bilateral nephrostomy tubes. Follow-up culture results. Will start on broad- spectrum antibiotics zosyn since 05/01. Follow-up cultures. Lactate pending = 05/02. Follow-up urine culture results. /Abdominal mass seen on imaging. Likely malignancy. = Likely bladder cancer. = Urology is following. Oncology consult pending. //Hypertension With systolic blood pressures up to the 180s today. also on proscar and flomax We will order Vasotec as needed for hypertension. //Electrolyte abnormalities -Patient with life-threatening abnormalities with significant hyponatremia, hyperkalemia -Obtain EKG -We will continue to monitor electrolytes after IV hydration -Consider Kayexalate, sodium bicarb, calcium gluconate, D5, insulin if potassium worsens or does not improve -Monitor sodium every 6 hours = Nephrology following. Appreciate assistance. Potassium 5.4. Repeat tomorrow. -Improved DVT prevention -Sequential compression devices, avoid chemical prophylaxis at this time secondary to bloody drainage Discharge Planning: HHC vs rehab. To floor (1) Acute renal failure (ARF) Qualifiers: Acute renal failure type: unspecified Qualified Code(s): N17.9 - Acute kidney failure, unspecified
--- NOTE | 2018-05-02 23:49 | P.CON ---
History of Present Illness Service: Onoclogy Consult date: 05/02/18 Primary Care Provider: Apolinar Murrell Family Provider: Apolinar Murrell Chief Complaint: Abdominal pain History of Present Illness: This is a 83-year-old male who was admitted to the hospital with urinary obstruction. He was found to be in renal failure. His creatinine on admission was 8.43. It has now normalized and is 0.76. He has undergone bilateral nephrostomy tube placement. On admission he underwent a CT scan of the abdomen and pelvis which revealed a large mass 9.4 x 7.4 cm in the pelvic area contiguous with the prostate gland with bilateral hydronephrosis and hydroureter with obstruction caused by the mass. There was a sclerotic focus in the T8 vertebral body which was concerning for metastatic disease. The patient was also found to have external bilateral pelvic lymphadenopathy. Patient had originally developed suprapubic pain and had bladder outlet obstruction approximately 1 month ago and a Anderson catheter was placed and he was started on Flomax. He followed up with Dr. Bowman after his hospital discharge and the Anderson catheter was removed. He subsequently presented to [facility] with urinary obstruction and a Anderson catheter was placed. He was supposed to get a planned cystoscopy this week, however he presented to the emergency room with urinary obstruction. Patient has been evaluated by urology. They recommend follow-up in the outpatient setting for a cystoscopy. Flomax and been continued. Review of Systems All other systems reviewed negative except as stated in HPI Constitutional: Reports anorexia, Reports lack of energy, Reports weight loss PMFSH - History History Provided By: Patient - Medical History Medical History: Medical History (Last Reviewed 05/03/18 @ 00:45 by Chase Ba MD) BPH with obstruction/lower urinary tract symptoms Hyperlipidemia No significant past surgical history - Family History Family History: Family History (Last Reviewed 05/03/18 @ 00:45 by Chase Ba MD) Other No significant family history - Tobacco History Second Hand Smoke Exposure: No Tobacco Use In Past 30 Days: No Smoking Status: Former smoker Tobacco Type: Cigarettes - Alcohol History How Often Do You Have a Drink Containing Alcohol: Monthly or less - Substance Use History Substance History: No History of Abuse - Immunization History Tetanus Immunization: Unsure Hx Influenza Vaccine This Season: No Medications and Allergies Active Medications: Active Medications Acetaminophen (Tylenol) 650 mg PO Q4H PRN PRN Reason: Temp > 100.4 Last Admin: 05/02/18 22:32 Dose: 650 mg Al Hydroxide/Mg Hydroxide (Milk Of Magnesia Liq) 30 ml PO Q12H PRN PRN Reason: Mild Constipation Bisacodyl (Dulcolax Supp) 10 mg RECTAL DAILY PRN PRN Reason: SEVERE CONSITIPATION Enalaprilat (Vasotec Inj) 1.25 mg IV.PUSH Q6H PRN PRN Reason: SBP > 160 Last Admin: 05/02/18 11:20 Dose: 1.25 mg Finasteride (Proscar) 5 mg PO DAILY [facility] Last Admin: 05/02/18 15:59 Dose: 5 mg Piperacillin/Tazobactam/Dextrose (Zosyn 2.25 Gm Premix) 50 mls @ 100 mls/hr IV.SIG Q8H [facility] Last Infusion: 05/02/18 19:31 Dose: Infused Lactulose (Lactulose Liq) 30 ml PO DAILY PRN PRN Reason: SEVERE CONSITIPATION Last Admin: 05/02/18 09:44 Dose: 30 ml Ondansetron HCl (Zofran Inj) 4 mg IV.PUSH Q6H PRN PRN Reason: NAUSEA OR VOMITING Last Admin: 05/01/18 08:01 Dose: 4 mg Senna/Docusate Sodium (Kaya-Colace) 1 tab PO BID [facility] Last Admin: 05/02/18 21:08 Dose: 1 tab Sennosides (Senokot) 17.2 mg PO Q12H PRN PRN Reason: Moderate Constipation Tamsulosin HCl (Flomax) 0.4 mg PO DAILY [facility] Last Admin: 05/02/18 08:50 Dose: 0.4 mg Temazepam (Restoril) 15 mg PO HS PRN PRN Reason: INSOMNIA Allergies Allergy/AdvReac Type Severity Reaction Status Date / Time No Known Allergies Unknown Uncoded 03/31/18 20:53 Home Medications Medication Instructions Recorded Confirmed Type atorvastatin 40 mg PO DAILY 04/30/18 04/30/18 History tamsulosin [Flomax] 0.4 mg PO DAILY 04/30/18 04/30/18 History Physical Exam Vital signs: Vital Signs 05/02/18 00:00 05/02/18 01:00 05/02/18 02:00 Temperature 98.0 F Pulse Rate 58 L 58 L 63 Respiratory Rate 20 16 39 H Blood Pressure 140/66 145/67 H 165/78 H Pulse Oximetry 100 94 L 92 L 05/02/18 03:00 05/02/18 04:00 05/02/18 04:20 Temperature 98.2 F Pulse Rate 68 67 64 Respiratory Rate 23 25 H 22 Blood Pressure 162/77 H 181/79 H 158/75 H Pulse Oximetry 94 L 96 95 05/02/18 05:00 05/02/18 05:57 05/02/18 06:00 Temperature Pulse Rate 68 65 68 Respiratory Rate 22 22 Blood Pressure 192/83 H 168/81 H Pulse Oximetry 95 95 05/02/18 07:00 05/02/18 07:22 05/02/18 07:30 Temperature Pulse Rate 69 66 72 Respiratory Rate 23 27 H 37 H Blood Pressure 157/78 H 175/82 H 157/77 H Pulse Oximetry 97 96 97 05/02/18 08:00 05/02/18 08:30 05/02/18 09:00 Temperature 98.3 F Pulse Rate 67 65 68 Respiratory Rate 23 20 29 H Blood Pressure 167/76 H 155/75 H Pulse Oximetry 95 96 96 05/02/18 09:01 05/02/18 09:30 05/02/18 09:43 Temperature Pulse Rate 68 66 65 Respiratory Rate 22 28 H 26 H Blood Pressure 163/111 H 182/82 H 174/85 H Pulse Oximetry 97 97 98 05/02/18 10:00 05/02/18 10:30 05/02/18 10:41 Temperature Pulse Rate 64 67 68 Respiratory Rate 22 22 25 H Blood Pressure 162/80 H 180/83 H 168/76 H Pulse Oximetry 96 97 96 05/02/18 11:00 05/02/18 11:03 05/02/18 11:05 Temperature Pulse Rate 66 66 64 Respiratory Rate 22 29 H 21 Blood Pressure 168/78 H 173/81 H Pulse Oximetry 95 98 95 05/02/18 11:18 05/02/18 11:19 05/02/18 11:30 Temperature Pulse Rate 64 65 68 Respiratory Rate 21 23 24 Blood Pressure 168/81 H 174/80 H 162/79 H Pulse Oximetry 97 97 97 05/02/18 12:00 05/02/18 12:30 05/02/18 13:00 Temperature 98.3 F Pulse Rate 65 65 65 Respiratory Rate 24 27 H 24 Blood Pressure 156/75 H 167/77 H 170/77 H Pulse Oximetry 96 96 96 05/02/18 13:30 05/02/18 14:00 05/02/18 14:30 Temperature 97.1 F L Pulse Rate 63 67 69 Respiratory Rate 30 H 35 H 34 H Blood Pressure 151/84 H 167/78 H 160/125 H Pulse Oximetry 96 96 96 05/02/18 14:38 05/02/18 14:48 05/02/18 15:00 Temperature Pulse Rate 66 65 81 Respiratory Rate 32 H 31 H 34 H Blood Pressure 167/109 H 167/81 H 169/89 H Pulse Oximetry 97 97 96 05/02/18 15:31 05/02/18 15:33 05/02/18 16:00 Temperature Pulse Rate 71 73 80 Respiratory Rate 37 H 39 H 34 H Blood Pressure 174/114 H 157/99 H Pulse Oximetry 96 97 95 05/02/18 16:01 05/02/18 16:25 05/02/18 16:27 Temperature Pulse Rate 83 72 78 Respiratory Rate 32 H 30 H 30 H Blood Pressure 192/88 H 222/98 H 164/95 H Pulse Oximetry 97 97 92 L 05/02/18 18:00 05/02/18 20:00 05/02/18 22:00 Temperature Pulse Rate 73 69 74 Respiratory Rate Blood Pressure Pulse Oximetry Intake & Output 05/02/18 05/02/18 05/03/18 06:59 18:59 06:59 Intake Total 2099 1530 / 1530 1050 / 1050 Output Total 1320 / 1320 1545 / 1545 Balance 780 / 780 -15 / -15 1050 / 1050 Weight 72.8 kg Intake: IV 2099 1050 / 1050 1050 / 1050 NS Inj 1,000 ML @ 150 mls/hr IV 1000 / 1000 .CONT .Q6H40M [facility] Rx#: [id number] 1/2 Normal Saline Inj 1,000 ML 1000 / 1000 1000 / 1000 1000 / 1000 @ 125 mls/hr IV.CONT .Q8H [facility] Rx#:[id number] Zosyn 2.25 GM Premix 50 ML @ 100 / 100 50 / 50 50 / 50 100 mls/hr IV.SIG Q8H [facility] Rx#: [id number] Oral 0 / 0 480 / 480 Output: Urine 0 / 0 Stool 0 / 0 0 / 0 Urine Amount (Catheter) Indwelling Urethral Catheter Wound Drainage 1300 / 1300 1525 / 1525 # 1 Left Lateral Back 650 / 650 800 / 800 # 2 Right Lateral Back 650 / 650 725 / 725 Other: Date of Last Bowel Movement 05/02/18 # Bowel Movements 0 3 - Constitutional no acute distress, chronically ill appearing - Routine HEENT Exam Head: Present: normocephalic, atraumatic - Routine Neck Exam Present: supple - Routine Respiratory Exam Present: CTA bilaterally - Routine Cardiovascular Exam Present: RRR, S1, S2 - Routine Abdominal Exam Present: soft, normoactive bowel sounds - Routine Extremities Exam Present: pulses intact, normal capillary refill - Routine Skin Exam Present: intact, dry, warm - Routine Neurological Exam Present: alert, oriented X3, CN II-XII intact - Urinary Catheter Management Indwelling Urethral Catheter Cath placed during this visit: yes Reason for continuing: Chronic Urinary Retention Insertion date: 04/30/18 Insertion time: 08:28 Assessment and Plan - Assessment (1) Prostate mass Code(s): N42.9 - Disorder of prostate, unspecified Status: Acute (2) Acute renal failure (ARF) Code(s): N17.9 - Acute kidney failure, unspecified Status: Acute (3) Ureter obstruction Code(s): N13.5 - Crossing vessel and stricture of ureter without hydronephrosis Status: Acute (4) Leukocytosis Code(s): D72.829 - Elevated white blood cell count, unspecified Status: Acute - Plan This is a 83-year-old male who has presented to the emergency room with urinary obstruction. He was in acute renal failure. He has a large pelvic mass which was causing bladder outlet obstruction. This mass is vigorous with the prostate and extending the patient has undergone bilateral nephrostomy tube placements with improvement in his and his creatinine. Patient was found to have a sclerotic T8 lesion.He also has bilateral pelvic lymphadenopathy: 1. Large pelvic mass with bladder obstruction, T8 vertebral body lesion and bilateral pelvic adenopathy--this is concerning for underlying bladder versus prostate cancer. This appears to be stage IV disease. The patient needs a biopsy to confirm diagnosis. He is going to undergo a cystoscopy and biopsy in the outpatient setting. I would recommend obtaining a CT-guided biopsy of the vertebral lesion. We will also obtain a bone scan to identify any other lesions in the bones. We will consider obtaining an MRI of the pelvis to better characterize the mass. Obtain CT scan of the chest with contrast to asses for metastatic disease. PSA is pending. Check LDH. 2. Bladder obstruction status post bilateral nephrostomy tubes 3. Acute renal failure due to obstruction. Creatinine has now normalized (2) Acute renal failure (ARF) Qualifiers: Acute renal failure type: unspecified Qualified Code(s): N17.9 - Acute kidney failure, unspecified
[2018-05-03] MEDS: Piperacil/Tazo 2.25 GM Premix 50 ML IV.SIG SCH ×2 (03:13→15:50)
[2018-05-03 04:39] LABS: Free PSA/PSA Ratio 0.19 ratio
[2018-05-03] MEDS: Acetaminophen 325 MG Tablet PO PRN ×2 (05:05→21:56)
[2018-05-03] MEDS: Senna/Docusate Sodium 8.6/50 MG Tablet PO SCH ×2 (08:00→21:56)
[2018-05-03] MEDS: Finasteride 5 MG Tablet PO SCH (08:00)
[2018-05-03] MEDS: Piperacil/Tazo 3.375 GM Premix 50 ML IV.SIG SCH ×2 (13:14→17:39)
--- NOTE | 2018-05-03 15:31 | CT ---
EXAM DATE: 05/03/2018 11:11 AM EDT AGE/SEX: 83 years / Male INDICATIONS: Evaluate for mass. CLINICAL DATA: This is the patient's initial encounter. Patient reports that signs and symptoms have been present for 1 day and indicates a pain score of 5/10. MEDICAL/SURGICAL HISTORY: . Prostate mass. . Bilateral nephrostomy tubes. RADIATION DOSE: 16.52 CTDI (mGy) COMPARISON: No prior exams available for comparison. TECHNIQUE: Contiguous axial images were acquired using a multirow detector CT scanner without contra st. Multiplanar reconstruction in the sagittal and coronal planes was performed. Using automated exp osure control and adjustment of the mA and/or kV according to patient size, radiation dose was kept a s low as reasonably achievable to obtain optimal diagnostic quality images. DICOM format image data is available electronically for review and comparison. FINDINGS: Sagittal images demonstrate normal vertebral body alignment and curvature. No fractures identified. A xial images performed from T1-T2 through T12-L1. There is sclerosis in the pedicle at T8 on the right . Malignancy is not excluded. This would be accessible to percutaneous biopsy. Small bilateral pleura l effusions are identified. There is subsegmental atelectasis in the both bases. T1-T2: No significant abnormalities identified. T2-T3: No significant abnormalities identified. T3-T4: No significant abnormalities identified. T4-T5: No significant abnormalities identified. T5-T6: No significant abnormalities identified. T6-T7: No significant abnormalities identified. T7-T8: No significant abnormalities identified. T8-T9: No significant abnormalities identified. T9-T10: There is mild diffuse annular bulge of the disc. The neural foramina are clear bilaterally. There is no significant spinal canal stenosis. T10-T11: There is no evidence of disc protrusion or spinal canal stenosis. There is mild facet arthr itis bilaterally. T11-T12: No significant abnormalities identified. T12-L1: No significant abnormalities identified. CONCLUSION: Sclerosis of the T8 vertebral body as described above. Malignancy is not excluded. This would be acce ssible to percutaneous biopsy. Electronically signed by: Bakari Cantrell MD 05/03/2018 3:30 PM EDT
--- NOTE | 2018-05-03 15:45 | NM ---
INDICATIONS: Prostate mass with chronic T-8 lesion seen on thoracic spine CT.. CLINICAL DATA: This is the patient's initial encounter. Patient reports that signs and symptoms have been present for 1 day and indicates a pain score of 0/10. MEDICAL/SURGICAL HISTORY: Renal failure, acute. Hypercholesterolemia. BPH. Nephrostomy tube, right. Bilateral nephrostomy tube placement. COMPARISON: [facility], CT ABDOMEN & PELVIS W/O CONTRAST, 04/30/2018. . No external comparison. TECHNIQUE: . . Whole body bone scan was performed at 2-3 hours. No correlative bone scan available for comparison. DOSE: 31.2 mCi Tc99m MDP IV FINDINGS: Whole body bone scan demonstrates a small focus of intense uptake in the right side of the T8 vertebr al body corresponding to the sclerotic lesion on the bone scan. In addition there are 2 small sclerot ic foci of increased uptake involving the right mid medial ilium and left ischium. There is normal re nal and bladder activity. Long bones are unremarkable. CONCLUSION: 1. 3 small focal areas of intense abnormal uptake characteristic of metastatic disease. One of these corresponds to the sclerotic lesion seen on CT involving the T8 vertebra. Electronically signed by: Dante Dominguez MD 05/03/2018 3:43 PM EDT
--- NOTE | 2018-05-03 16:26 | P.PN ---
Subjective Interval history: no complains of pain at all- since nephrostomy tubes were place with nephrostomy bilateral in place- good output lux - minimal urine Physical Exam Vital signs: Vital Signs 05/02/18 16:27 05/02/18 18:00 05/02/18 20:00 Temperature 98.3 F Pulse Rate 78 73 69 Respiratory Rate 30 H 26 H Blood Pressure 164/95 H 133/63 Pulse Oximetry 92 L 95 05/02/18 22:00 05/03/18 00:00 05/03/18 02:00 Temperature Pulse Rate 74 67 61 Respiratory Rate 18 Blood Pressure Pulse Oximetry 93 L 05/03/18 04:00 05/03/18 06:00 05/03/18 08:00 Temperature 98.3 F Pulse Rate 55 L 58 L 67 Respiratory Rate 19 16 Blood Pressure 158/88 H 161/77 H Pulse Oximetry 94 L 96 05/03/18 09:03 05/03/18 12:00 05/03/18 14:00 Temperature 98.3 F Pulse Rate 61 60 Respiratory Rate 14 16 Blood Pressure 100/61 Pulse Oximetry 100 05/03/18 16:00 Temperature 98.2 F Pulse Rate 69 Respiratory Rate 15 Blood Pressure 147/72 H Pulse Oximetry 96 Intake & Output 05/02/18 05/03/18 05/03/18 18:59 06:59 18:59 Intake Total 1530 / 1530 1170 / 1170 100 / 100 Output Total 1545 / 1545 1770 / 1770 1000 / 1000 Balance -15 / -15 -600 / -600 -900 / -900 Weight 71.8 kg Intake: IV 1050 / 1050 1050 / 1050 100 / 100 1/2 Normal Saline Inj 1,000 ML 1000 / 1000 1000 / 1000 @ 125 mls/hr IV.CONT .Q8H K[facility]ST[facility] Rx#:[id number] Zosyn 2.25 GM Premix 50 ML @ 50 / 50 50 / 50 50 / 50 100 mls/hr IV.SIG Q8H K[facility]STAL Rx#: [id number] Zosyn 3.375 GM Premix 50 ML @ 50 / 50 100 mls/hr IV.SIG Q6H KRISTAL Rx#: [id number] Oral 480 / 480 120 / 120 Output: Urine 0 / 0 Stool 0 / 0 0 / 0 Urine Amount (Catheter) 20 / 20 20 / 20 Indwelling Urethral Catheter 20 / 20 20 / 20 Wound Drainage 1525 / 1525 1750 / 1750 1000 / 1000 # 1 Left Lateral Back 800 / 800 900 / 900 525 / 525 # 2 Right Lateral Back 725 / 725 850 / 850 475 / 475 Other: Date of Last Bowel Movement 05/02/18 # Bowel Movements 3 0 Narrative: awake and alert, no acute ditress anciteric lungs- no rales regular rhythm abdomensoft, nontender bilateral neohriostomy tubes in place lux in place no leg selling or tenderness moves all extremities spontaneously- no gross sensory deficits - Urinary Catheter Management Indwelling Urethral Catheter Cath placed during this visit: yes Reason for continuing: Chronic Urinary Retention Insertion date: 04/30/18 Insertion time: 08:28 Results - Labs CBC & Chem 7: 05/02/18 12:27 05/02/18 12:27 Laboratory Results - last 24 hr 05/01/18 03:22 Free PSA 1.8 Total PSA 9.3 H PSA Free/Total Ratio 0.19 Microbiology 04/30/18 16:45 Blood - Peripheral Aerobic Blood Culture - Preliminary No growth in 3 days 04/30/18 16:45 Blood - Peripheral Anaerobic Blood Culture - Preliminary No growth in 3 days 04/30/18 16:40 Blood - Peripheral Aerobic Blood Culture - Preliminary No growth in 3 days 04/30/18 16:40 Blood - Peripheral Anaerobic Blood Culture - Preliminary No growth in 3 days 05/01/18 10:50 Clean Catch Urine Urine Culture - Final No growth in 48 hours - Imaging Impressions Bone Scan Nuclear Medicine 05/03/18 00:00 CONCLUSION: 1. 3 small focal areas of intense abnormal uptake characteristic of metastatic disease. One of these corresponds to the sclerotic lesion seen on CT involving the T8 vertebra. Thoracic Spine CT 05/03/18 00:00 CONCLUSION: Sclerosis of the T8 vertebral body as described above. Malignancy is not excluded. This would be accessible to percutaneous biopsy. 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 There were sclerotic focus in T8 which could be metastatic. Extensive bilateral pelvic lymphadenopathy -Ultrasound was performed which did show bilateral hydronephrosis, wall thickening of the urinary bladder -There is no urinary output despite replacement of Lux, CT review was performed and Lux is in place, however bladder seems rather decompressed and small. It appears that the mass has surrounded the bladder possible obstructing the ureters. -Patient was given 500 cc of IV fluids in the emergency department, will give another liter of normal saline, continue IV fluids at 150 cc an hour, monitor for any fluid overload, reevaluate with BMP at 1600 today. Laboratory findings indicative of hypervolemic renal failure -We will need to monitor renal function to see if there is any improvement after IV fluids -Urology was consulted who indicated the patient will need cystoscopy performed. Requesting the patient be transferred to [facility] for further evaluation. Cystoscopy cannot be performed at [place]. Urologist recommending IV fluids administration, monitor renal function to see if there is any improvement. -Nephrology ff -elevated PSA - went for bone scan- = Oncology ff = Appreciate customer service sales consultant assistance. Continue to monitor. Nephrology, urology following. - plan for T8 disc biopsy tomorrow by IR - T8 //Suspected sepsis //UTI -Tachypnea, leukocytosis, suspected UTI. -= Nephrology and urology are following. Continue with bilateral nephrostomy tubes. Due to leukocytosis and tachypnea, I have ordered urinalysis, a bilateral nephrostomy tubes. on broad-spectrum antibiotics. Follow-up cultures - negative sof far .. Lactate down /Abdominal mass seen on imaging. Likely malignancy. = Likely bladder cancer. = Urology and Oncology ff //Hypertension- overall better With systolic blood pressures up to the 180s today. We will order Vasotec as needed for hypertension. //Electrolyte abnormalities - Hyperkalemia- corrected -Patient came in with life-threatening abnormalities with significant hyponatremia, hyperkalemia -Obtain EKG -We will continue to monitor electrolytes after IV hydration DVT prevention -Sequential compression devices, avoid chemical prophylaxis at this time secondary to likely further procedures (1) Acute renal failure (ARF) Qualifiers: Acute renal failure type: unspecified Qualified Code(s): N17.9 - Acute kidney failure, unspecified
--- NOTE | 2018-05-03 17:44 | P.PNURO ---
Subjective Patient symptoms today: Doing well, bilateral nephrostomy tubes in place, draining clear yellow urine. Minimal Lux output Objective Vital Signs: Vital Signs 05/02/18 18:00 05/02/18 20:00 05/02/18 22:00 Temperature 98.3 F Pulse Rate 73 69 74 Respiratory Rate 26 H Blood Pressure 133/63 Pulse Oximetry 95 05/03/18 00:00 05/03/18 02:00 05/03/18 04:00 Temperature Pulse Rate 67 61 55 L Respiratory Rate 18 19 Blood Pressure 158/88 H Pulse Oximetry 93 L 94 L 05/03/18 06:00 05/03/18 08:00 05/03/18 09:03 Temperature 98.3 F Pulse Rate 58 L 67 Respiratory Rate 16 14 Blood Pressure 161/77 H Pulse Oximetry 96 05/03/18 12:00 05/03/18 14:00 05/03/18 16:00 Temperature 98.3 F 98.2 F Pulse Rate 61 60 69 Respiratory Rate 16 15 Blood Pressure 100/61 147/72 H Pulse Oximetry 100 96 Intake & Output 05/02/18 05/03/18 05/03/18 18:59 06:59 18:59 Intake Total 1530 / 1530 1170 / 1170 100 / 100 Output Total 1545 / 1545 1770 / 1770 1250 / 1250 Balance -15 / -15 -600 / -600 -1150 / -1150 Weight 71.8 kg Intake: IV 1050 / 1050 1050 / 1050 100 / 100 1/2 Normal Saline Inj 1,000 ML 1000 / 1000 1000 / 1000 @ 125 mls/hr IV.CONT .Q8H KRISTAL Rx#:[id number] Zosyn 2.25 GM Premix 50 ML @ 50 / 50 50 / 50 50 / 50 100 mls/hr IV.SIG Q8H KRISTAL Rx#: [id number] Zosyn 3.375 GM Premix 50 ML @ 50 / 50 100 mls/hr IV.SIG Q6H KRISTAL Rx#: [id number] Oral 480 / 480 120 / 120 Output: Urine 0 / 0 Stool 0 / 0 0 / 0 Urine Amount (Catheter) 20 / 20 20 / 20 Indwelling Urethral Catheter / 20 20 / 20 Wound Drainage 1525 / 1525 1750 / 1750 1250 / 1250 # 1 Left Lateral Back 800 / 800 900 / 900 675 / 675 # 2 Right Lateral Back 725 / 725 850 / 850 575 / 575 Other: Date of Last Bowel Movement 05/02/18 # Bowel Movements 3 0 Result Diagrams: 05/02/18 12:27 05/02/18 12:27 Other Results: NAD, AAOx3 Resp NL Ab S/NT Lux in place, minimal output Bilateral nephrostomy tubes in place Imaging: Impressions Bone Scan Nuclear Medicine 05/03/18 00:00 CONCLUSION: 1. 3 small focal areas of intense abnormal uptake characteristic of metastatic disease. One of these corresponds to the sclerotic lesion seen on CT involving the T8 vertebra. Thoracic Spine CT 05/03/18 00:00 CONCLUSION: Sclerosis of the T8 vertebral body as described above. Malignancy is not excluded. This would be accessible to percutaneous biopsy. Medications and IVs: Active Medications Generic Name Dose Route Start Last Admin Trade Name Freq PRN Reason Stop Dose Admin Acetaminophen 650 mg 04/30/18 10:29 05/03/18 05:05 Tylenol PO 650 mg Q4H PRN Administration Temp > 100.4 Al Hydroxide/Mg Hydroxide 30 ml 04/30/18 10:29 Milk Of Magnesia Liq PO Q12H PRN Mild Constipation Bisacodyl 10 mg 04/30/18 10:29 Dulcolax Supp RECTAL DAILY PRN SEVERE CONSITIPATION Enalaprilat 1.25 mg 05/02/18 10:59 05/03/18 08:48 Vasotec Inj IV.PUSH 1.25 mg Q6H PRN Administration SBP > 160 Finasteride 5 mg 05/02/18 15:45 05/03/18 08:00 Proscar PO 5 mg DAILY KRISTAL Administration Piperacillin/Tazobactam/Dextrose 50 mls @ 100 mls/hr 05/03/18 12:00 05/03/18 17:39 Zosyn 3.375 Gm Premix IV.SIG 100 mls/hr Q6H KRISTAL Administration Lactulose 30 ml 04/30/18 10:29 05/02/18 09:44 Lactulose Liq PO 30 ml DAILY PRN Administration SEVERE CONSITIPATION Ondansetron HCl 4 mg 04/30/18 10:29 05/01/18 08:01 Zofran Inj IV.PUSH 4 mg Q6H PRN Administration NAUSEA OR VOMITING Senna/Docusate Sodium 1 tab 04/30/18 21:00 05/03/18 08:00 Kaya-Colace PO 1 tab BID KRISTAL Administration Sennosides 17.2 mg 04/30/18 10:29 Senokot PO Q12H PRN Moderate Constipation Tamsulosin HCl 0.4 mg 05/01/18 09:00 05/03/18 08:00 Flomax PO 0.4 mg DAILY KRISTAL Administration Temazepam 15 mg 04/30/18 10:29 Restoril PO HS PRN INSOMNIA Assessment and Plan - Plan -Evidence of possible metastatic disease to the bone noted, concerning for fruit dryer -Biopsy planned tomorrow for bone lesion -Patient may followup in urology clinic after discharge to review results and treatment plan -Maintain lux catheter and bilateral nephrostomy tubes until urology followup
[2018-05-03] MEDS ORDERED: Morphine Inj 4 MG/ML Vial IV.PUSH ONE (22:26)
--- NOTE | 2018-05-03 23:27 | P.PN ---
Subjective Interval history: had bone scan today which shows metastatic lesions plan for CT guided biopsy of bone lesion in am resting comfortably in bed Patient seen around 6:00pm discussed with SHANE Hines Physical Exam Vital signs: Vital Signs 05/03/18 00:00 05/03/18 02:00 05/03/18 04:00 Temperature Pulse Rate 67 61 55 L Respiratory Rate 18 19 Blood Pressure 158/88 H Pulse Oximetry 93 L 94 L 05/03/18 06:00 05/03/18 08:00 05/03/18 09:03 Temperature 98.3 F Pulse Rate 58 L 67 Respiratory Rate 16 14 Blood Pressure 161/77 H Pulse Oximetry 96 05/03/18 12:00 05/03/18 14:00 05/03/18 16:00 Temperature 98.3 F 98.2 F Pulse Rate 61 60 69 Respiratory Rate 16 15 Blood Pressure 100/61 147/72 H Pulse Oximetry 100 96 05/03/18 20:00 05/03/18 22:00 05/03/18 22:32 Temperature 98.8 F Pulse Rate 71 79 Respiratory Rate 24 22 Blood Pressure 166/87 H Pulse Oximetry 95 05/03/18 22:35 Temperature Pulse Rate Respiratory Rate 20 Blood Pressure Pulse Oximetry Intake & Output 05/03/18 05/03/18 05/04/18 06:59 18:59 06:59 Intake Total 1170 / 1170 150 / 150 Output Total 1770 / 1770 1250 / 1250 Balance -600 / -600 -1100 / -1100 Weight 71.8 kg Intake: IV 1050 / 1050 150 / 150 1/2 Normal Saline Inj 1,000 ML 1000 / 1000 @ 125 mls/hr IV.CONT .Q8H KRISTAL Rx#:[id number] Zosyn 2.25 GM Premix 50 ML @ 50 / 50 50 / 50 100 mls/hr IV.SIG Q8H KRISTAL Rx#: [id number] Zosyn 3.375 GM Premix 50 ML @ 100 / 100 100 mls/hr IV.SIG Q6H KRISTAL Rx#: [id number] Oral 120 / 120 Output: Stool 0 / 0 Urine Amount (Catheter) 20 / 20 Indwelling Urethral Catheter 20 / 20 Wound Drainage 1750 / 1750 1250 / 1250 # 1 Left Lateral Back 900 / 900 675 / 675 # 2 Right Lateral Back 850 / 850 575 / 575 Other: Date of Last Bowel Movement 05/02/18 # Bowel Movements 0 - Constitutional no acute distress - Routine Respiratory Exam Present: CTA bilaterally - Routine Cardiovascular Exam Present: RRR, S1, S2 - Routine Abdominal Exam Present: soft, normoactive bowel sounds - Routine Extremities Exam Present: pulses intact, normal capillary refill - Routine Skin Exam Present: intact, warm - Urinary Catheter Management Indwelling Urethral Catheter Cath placed during this visit: yes Reason for continuing: Chronic Urinary Retention Insertion date: 04/30/18 Insertion time: 08:28 Results - Labs CBC & Chem 7: 05/02/18 12:27 05/02/18 12:27 Laboratory Results - last 24 hr 05/01/18 03:22 Free PSA 1.8 Total PSA 9.3 H PSA Free/Total Ratio 0.19 Microbiology 04/30/18 16:45 Blood - Peripheral Aerobic Blood Culture - Preliminary No growth in 3 days 04/30/18 16:45 Blood - Peripheral Anaerobic Blood Culture - Preliminary No growth in 3 days 04/30/18 16:40 Blood - Peripheral Aerobic Blood Culture - Preliminary No growth in 3 days 04/30/18 16:40 Blood - Peripheral Anaerobic Blood Culture - Preliminary No growth in 3 days 05/01/18 10:50 Clean Catch Urine Urine Culture - Final No growth in 48 hours - Imaging Impressions Bone Scan Nuclear Medicine 05/03/18 00:00 CONCLUSION: 1. 3 small focal areas of intense abnormal uptake characteristic of metastatic disease. One of these corresponds to the sclerotic lesion seen on CT involving the T8 vertebra. Thoracic Spine CT 05/03/18 00:00 CONCLUSION: Sclerosis of the T8 vertebral body as described above. Malignancy is not excluded. This would be accessible to percutaneous biopsy. Assessment and Plan - Assessment (1) Prostate mass Code(s): N42.9 - Disorder of prostate, unspecified Status: Acute (2) Acute renal failure (ARF) Code(s): N17.9 - Acute kidney failure, unspecified Status: Acute (3) Ureter obstruction Code(s): N13.5 - Crossing vessel and stricture of ureter without hydronephrosis Status: Acute (4) Leukocytosis Code(s): D72.829 - Elevated white blood cell count, unspecified Status: Acute - Plan This is a 83-year-old male who has presented to the emergency room with urinary obstruction. He was in acute renal failure. He has a large pelvic mass which was causing bladder outlet obstruction. This mass is vigorous with the prostate and extending the patient has undergone bilateral nephrostomy tube placements with improvement in his and his creatinine. Patient was found to have a sclerotic T8 lesion.He also has bilateral pelvic lymphadenopathy: 1. Large pelvic mass with bladder obstruction, T8 vertebral body lesion and bilateral pelvic adenopathy - bone scan shows additional metastatic lesions - CT guided biopsy in am - Plan for MRI pelvis once biopsy completed - PSA 9.3 2. Bladder obstruction status post bilateral nephrostomy tubes 3. Acute renal failure due to obstruction. Creatinine has now normalized (2) Acute renal failure (ARF) Qualifiers: Acute renal failure type: unspecified Qualified Code(s): N17.9 - Acute kidney failure, unspecified
[2018-05-04] MEDS: Piperacil/Tazo 3.375 GM Premix 50 ML IV.SIG SCH ×5 (00:44→23:44)
[2018-05-04 06:16] LABS: INR 1.1 Ratio; Prothrombin Time 11.5 sec (9.8-11.6)
[2018-05-04 06:26] LABS: Albumin 2.2 g/dL (3.4-5.0); Anion Gap 7 meq/L (5-15); Aspartate Aminotransferase 36 U/L (15-37); Blood Urea Nitrogen 11 mg/dL (7-18); Calcium 7.9 mg/dL (8.5-10.1); Carbon Dioxide 28.4 meq/L (21.0-32.0); Chloride 105 meq/L (98-107); Glomerular Filtration Rate Greater Than 89 mL/min (>89); Glucose,Random 98 mg/dL (74-106); Potassium 3.9 meq/L (3.5-5.1); Sodium 140 meq/L (136-145)
[2018-05-04 06:27] LABS: Alanine Aminotransferase 20 U/L (12-78)
[2018-05-04 06:30] LABS: Alkaline Phosphatase 82 U/L (45-117); Total Protein 5.8 g/dL (6.4-8.2)
--- NOTE | 2018-05-04 08:26 | P.PN ---
Subjective Interval history: discussed with patient- about DC planning no complains of pain or back discomfort no nausea or vomiting Nephrostomy tuibes- functioning minimal lux output Physical Exam Vital signs: Vital Signs 05/03/18 09:03 05/03/18 12:00 05/03/18 14:00 Temperature 98.3 F Pulse Rate 61 60 Respiratory Rate 14 16 Blood Pressure 100/61 Pulse Oximetry 100 05/03/18 16:00 05/03/18 20:00 05/03/18 22:00 Temperature 98.2 F 98.8 F Pulse Rate 69 71 79 Respiratory Rate 15 24 Blood Pressure 147/72 H 166/87 H Pulse Oximetry 96 95 05/03/18 22:32 05/03/18 22:35 05/04/18 00:00 Temperature 98.1 F Pulse Rate 63 Respiratory Rate 22 20 20 Blood Pressure 157/74 H Pulse Oximetry 95 05/04/18 02:00 05/04/18 04:00 05/04/18 06:00 Temperature 97.6 F Pulse Rate 53 L 52 L 56 L Respiratory Rate 18 Blood Pressure 133/60 Pulse Oximetry 95 Intake & Output 05/03/18 05/04/18 05/04/18 18:59 06:59 18:59 Intake Total 150 / 150 240 / 240 Output Total 1250 / 1250 800 / 800 Balance -1100 / -1100 -560 / -560 Weight 71.8 kg Intake: IV 150 / 150 Zosyn 2.25 GM Premix 50 ML @ 50 / 50 100 mls/hr IV.SIG Q8H KRISTAL Rx#: [id number] Zosyn 3.375 GM Premix 50 ML @ 100 / 100 100 mls/hr IV.SIG Q6H KRISTAL Rx#: [id number] Oral 240 / 240 Output: Urine Amount (Catheter) 0 / 0 Indwelling Urethral Catheter 0 / 0 Wound Drainage 1250 / 1250 800 / 800 # 1 Left Lateral Back 675 / 675 450 / 450 # 2 Right Lateral Back 575 / 575 350 / 350 Other: # Bowel Movements 0 Narrative: awake and alert, no acute distress anicteric lungs- no rales regular rhythm abdomen soft, nontender bilateral nephrostomy tubes in place- draining grossly clear lux in place- minimal output no leg swelling or tenderness moves all extremities spontaneously- no gross sensory deficits - Urinary Catheter Management Indwelling Urethral Catheter Cath placed during this visit: yes Reason for continuing: Chronic Urinary Retention Insertion date: 04/30/18 Insertion time: 08:28 Results - Labs CBC & Chem 7: 05/02/18 12:27 05/04/18 05:09 Laboratory Results - last 24 hr 05/04/18 05/04/18 05:09 05:09 PT 11.5 INR 1.1 Sodium 140 Potassium 3.9 Chloride 105 Carbon Dioxide 28.4 Anion Gap 7 BUN 11 Creatinine 0.71 Estimated GFR Greater than 89 Random Glucose 98 Calcium 7.9 L Total Bilirubin 0.6 AST 36 ALT 20 Alkaline Phosphatase 82 Total Protein 5.8 L Albumin 2.2 L Microbiology 04/30/18 16:45 Blood - Peripheral Aerobic Blood Culture - Preliminary No growth in 3 days 04/30/18 16:45 Blood - Peripheral Anaerobic Blood Culture - Preliminary No growth in 3 days 04/30/18 16:40 Blood - Peripheral Aerobic Blood Culture - Preliminary No growth in 3 days 04/30/18 16:40 Blood - Peripheral Anaerobic Blood Culture - Preliminary No growth in 3 days 05/01/18 10:50 Clean Catch Urine Urine Culture - Final No growth in 48 hours - Imaging Impressions Bone Scan Nuclear Medicine 05/03/18 00:00 CONCLUSION: 1. 3 small focal areas of intense abnormal uptake characteristic of metastatic disease. One of these corresponds to the sclerotic lesion seen on CT involving the T8 vertebra. Thoracic Spine CT 05/03/18 00:00 CONCLUSION: Sclerosis of the T8 vertebral body as described above. Malignancy is not excluded. This would be accessible to percutaneous biopsy. Assessment and Plan - Assessment (1) Acute renal failure (ARF) Code(s): N17.9 - Acute kidney failure, unspecified Status: Acute (2) Ureter obstruction Code(s): N13.5 - Crossing vessel and stricture of ureter without hydronephrosis Status: Acute (3) Leukocytosis Code(s): D72.829 - Elevated white blood cell count, unspecified Status: Acute - Plan 83 years old male Acute renal failure secondary to Obstructive uropathy likely from prostate cancer S/P bilateral nephrostomy tube placement 04/30 stage IV- bone scan with metastasis T8 - renal functions are improved -CT scan showed a rather large mass 9.4 x 7.4 cm in the pelvis contiguous with the prostate gland with bilateral hydronephrosis and hydroureter with obstruction caused by pelvic mass. There were sclerotic focus in T8 which could be metastatic. Extensive bilateral pelvic lymphadenopathy -Ultrasound was performed which did show bilateral hydronephrosis, wall thickening of the urinary bladder -There is no urinary output despite replacement of Lux, CT review was performed and Lux is in place, however bladder seems rather decompressed and small. It appears that the mass has surrounded the bladder possible obstructing the ureters. -Urology was consulted --- keep bilateral nephrostomy and lux till ff up with them as OP -Nephrology ff- reanl functions normalized with neprhorstomy tubes = Oncology ff = Appreciate regulatory affairs consultant assistance. Continue to monitor. Nephrology, urology following. - plan for T8 disc biopsy today //Suspected sepsis //UTI -Tachypnea, leukocytosis, suspected UTI. -= Nephrology and urology are following. Continue with bilateral nephrostomy tubes. Due to leukocytosis and tachypnea, I have ordered urinalysis, a bilateral nephrostomy tubes. on broad-spectrum antibiotics. Follow-up cultures - negative sof far .. Lactate down //Hypertension- overall better With systolic blood pressures up to the 180s today. We will order Vasotec as needed for hypertension. //Electrolyte abnormalities- resolved - Hyperkalemia- corrected DVT prevention -Sequential compression devices, avoid chemical prophylaxis at this time secondary to likely further procedures Trasnfer to Oncology floor Case management consult for home [facility] care services/needs PT consult- patient going home bilateral nephrostomy and lux- - advise and recommendations (1) Acute renal failure (ARF) Qualifiers: Acute renal failure type: unspecified Qualified Code(s): N17.9 - Acute kidney failure, unspecified
[2018-05-04] MEDS: Senna/Docusate Sodium 8.6/50 MG Tablet PO SCH ×2 (08:44→21:52)
[2018-05-04] MEDS: Finasteride 5 MG Tablet PO SCH (08:44)
[2018-05-04] MEDS ORDERED: fentaNYL Citrate Inj 250 MCG/5 ML Ampul ONE (12:54)
--- NOTE | 2018-05-04 14:11 | CT ---
EXAM DATE: 05/04/2018 1:49 PM EDT AGE/SEX: 83 years / Male INDICATIONS: Right iliac biopsy, right iliac lesion. CLINICAL DATA: This is the patient's initial encounter. Patient reports that signs and symptoms have been present for 1 day and indicates a pain score of 0/10. MEDICAL/SURGICAL HISTORY: Renal failure, acute. leukocytosis, ureter obstruction . bilateral n eph tubes COMPARISON: No prior exams available for comparison. SEDATION TIME (min): 30 BIOPSY SITE: Right . iliac MEDICATION(S): 1.5mg midazolam (Versed) IV 75mcg fentanyl (Sublimaze) IV DEVICE(S): 11 gauge Bone marrow biopsy needle One . . PROCEDURE: CT guided core biopsy of focal sclerotic lesion within the right iliac bone Prior to the procedure informed consent was obtained. Any appropriate prior imaging studies were rev iewed. Using automated exposure control and adjustment of the mA and/or kV according to patient size, radiat ion dose was kept as low as reasonably achievable to obtain optimal diagnostic quality images. DICOM format image data is available electronically for review and comparison. The site was prepped in a sterile fashion. Full sterile technique was used, including cap, mask, hitesh rile gloves and gown and a large sterile sheet. Hand hygiene and 2% chlorhexidine and/or betadine/al cohol prep was utilized per protocol for cutaneous antisepsis. The skin and subcutaneous tissues wer e infiltrated with local anesthetic solution. With CT guidance the previously identified target was localized. Biopsy was performed using the presc ribed needle as above. Adequate hemostasis was obtained with compression at the puncture site. Follow-up CT scan reveals no hemorrhage. The patient tolerated the procedure well and there were no complications. The patient was returned to the Radiology Outpatient Unit in stable condition. FINDINGS: After obtaining consent, a CT-guided 11 gauge core biopsy of the focal sclerotic lesion within the ri [facility] [place] iliac bone was performed. Excellent core sample was obtained and sent to pathology. The patient t olerated the procedure well without concretions. CONCLUSION: 1. Uncomplicated CT-guided 11 gauge core biopsy of the focal sclerotic lesion within the right iliac bone. Electronically signed by: Fernandez Nicole MD 05/04/2018 2:10 PM EDT
[2018-05-04] MEDS ORDERED: Morphine Inj 4 MG/ML Vial IV.PUSH ONE (21:31)
[2018-05-05] MEDS ORDERED: HYDROmorphone PF Inj 2 MG/ML Vial IV.PUSH ONE (00:15)
[2018-05-05] MEDS: Piperacil/Tazo 3.375 GM Premix 50 ML IV.SIG SCH ×3 (05:30→18:13)
[2018-05-05] MEDS: Senna/Docusate Sodium 8.6/50 MG Tablet PO SCH ×2 (08:56→21:28)
[2018-05-05] MEDS: Finasteride 5 MG Tablet PO SCH (08:56)
[2018-05-05] MEDS: Morphine Inj 4 MG/ML Vial IV.PUSH PRN (14:24)
--- NOTE | 2018-05-05 14:39 | P.PN ---
Physical Exam Vital signs: Vital Signs 05/04/18 15:02 05/04/18 16:48 05/04/18 20:00 Temperature 97.7 F 98.0 F 98.1 F Pulse Rate 64 74 75 Respiratory Rate 18 18 18 Blood Pressure 162/85 H 174/96 H 150/82 H Pulse Oximetry 95 96 96 05/05/18 00:00 05/05/18 04:00 05/05/18 12:00 Temperature 98.8 F 98.4 F 98.1 F Pulse Rate 76 82 89 Respiratory Rate 16 16 18 Blood Pressure 153/94 H 163/90 H 164/93 H Pulse Oximetry 97 93 L 98 Intake & Output 05/04/18 05/05/18 05/05/18 18:59 06:59 18:59 Intake Total 730 / 730 100 / 100 50 / 50 Output Total 725 / 725 1075 / 1075 700 / 700 Balance 5 / 5 -975 / -975 -650 / -650 Weight 72.5 kg Intake: IV 100 / 100 100 / 100 50 / 50 Zosyn 3.375 GM Premix 50 ML @ 100 / 100 100 / 100 50 / 50 100 mls/hr IV.SIG Q6H KRISTAL Rx#: [id number] Oral 630 / 630 Output: Urine 725 / 725 Urine Amount (Catheter) 50 / 50 Indwelling Urethral Catheter 50 / 50 Wound Drainage 1025 / 1025 700 / 700 # 1 Left Lateral Back 450 / 450 425 / 425 # 2 Right Lateral Back 575 / 575 275 / 275 Narrative: Subjective He is in bed appears cachectic and chronically ill. However he denies having any pain at the next nephrostomy tubes however he reports of some lower abdominal pain. No fever or chills. No nausea vomiting. Nephrostomy tubes in place functioning well minimal lux output Physical Exam GENERAL: Pleasant 83-year-old male, skin is cachectic chronically ill-appearing. CARDIOVASCULAR: Regular rate and rhythm without murmurs, gallops, or rubs. RESPIRATORY: Breath sounds equal bilaterally. No accessory muscle use. GASTROINTESTINAL: Abdomen soft, non-tender, nondistended. bilateral nephrostomy tubes in place- draining clear urine. Lux in place minimal output MUSCULOSKELETAL: No cyanosis, or edema. BACK: Nontender without obvious deformity. No CVA tenderness. 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 There were sclerotic focus in T8 which could be metastatic. Extensive bilateral pelvic lymphadenopathy -Ultrasound was performed which did show bilateral hydronephrosis, wall thickening of the urinary bladder -There is no urinary output despite replacement of Lux, CT review was performed and Lux is in place, however bladder seems rather decompressed and small. It appears that the mass has surrounded the bladder possible obstructing the ureters. -Urology was consulted --- keep bilateral nephrostomy and lux till ff up with them as OP -Nephrology ff- reanl function iproved significantly with nephrostomy tubes = Oncology ff = Appreciate bath design sales consultant assistance. Continue to monitor. Nephrology, urology following. - plan for T8 disc biopsy today Suspected sepsis UTI -Tachypnea, leukocytosis, suspected UTI. -= Nephrology and urology are following. Continue with bilateral nephrostomy tubes. Due to leukocytosis and tachypnea, I have ordered urinalysis, a bilateral nephrostomy tubes. on broad-spectrum antibiotics. Follow-up cultures - negative sof far .. Lactate down Hypertension- overall better With systolic blood pressures up to the 180s today. We will order Vasotec as needed for hypertension. Electrolyte abnormalities- resolved - Hyperkalemia- corrected DVT prevention -Sequential compression devices, avoid chemical prophylaxis at this time secondary to likely further procedures Case management consult for home health care services/needs PT consult- patient going home bilateral nephrostomy and lux- Discussed with patient, nurse - Urinary Catheter Management Indwelling Urethral Catheter Cath placed during this visit: yes Reason for continuing: Chronic Urinary Retention Insertion date: 04/30/18 Insertion time: 08:28 Results - Labs CBC & Chem 7: 05/02/18 12:27 05/04/18 05:09 Microbiology 04/30/18 16:45 Blood - Peripheral Aerobic Blood Culture - Final No growth in 5 days 04/30/18 16:45 Blood - Peripheral Anaerobic Blood Culture - Final No growth in 5 days 04/30/18 16:40 Blood - Peripheral Aerobic Blood Culture - Final No growth in 5 days 04/30/18 16:40 Blood - Peripheral Anaerobic Blood Culture - Final No growth in 5 days Assessment and Plan - Assessment (1) Acute renal failure (ARF) Code(s): N17.9 - Acute kidney failure, unspecified Status: Acute (2) Ureter obstruction Code(s): N13.5 - Crossing vessel and stricture of ureter without hydronephrosis Status: Acute (3) Leukocytosis Code(s): D72.829 - Elevated white blood cell count, unspecified Status: Acute (1) Acute renal failure (ARF) Qualifiers: Acute renal failure type: unspecified Qualified Code(s): N17.9 - Acute kidney failure, unspecified
--- NOTE | 2018-05-05 14:43 | P.DCO ---
- Diagnosis (1) Acute renal failure (ARF) - Physical Therapy Order: Evaluate and treat - Home Health Nursing Order: Medical education, Signs/symptoms of disease process, Medication education-adverse effect, Nursing assessment with vital signs - Certification I have seen patient Aroldo Tang on 05/05/18. My clinical findings support the need for the requested home health care services because: Limited mobility due to disease progression, Patient has SOB I certify that my clinical findings support that this patient is homebound because: Post-op weakness (1) Acute renal failure (ARF) Qualifiers: Acute renal failure type: unspecified Qualified Code(s): N17.9 - Acute kidney failure, unspecified
[2018-05-05] MEDS ORDERED: Gadobenate Dimeglumine PF Inj 10 ML VIAL (for RAD MRI) IVCONTRAST ONE (17:29)
--- NOTE | 2018-05-05 17:59 | MR ---
EXAM DATE: 05/05/2018 5:51 PM EDT AGE/SEX: 83 years / Male INDICATIONS: Mass. Lower abdomen pain, possible mass. CLINICAL DATA: This is the patient's initial encounter. Patient reports that signs and symptoms have been present for 1 week and indicates a pain score of 7/10. MEDICAL/SURGICAL HISTORY: Carcinoma, prostatic. Hypercholesterolemia. . Nephrostomy tubes. COMPARISON: [facility], CT ABDOMEN & PELVIS W/O CONTRAST, 04/30/2018. . TECHNIQUE: Multiplanar, multisequence MRI examination of the pelvis was performed with 14 ml Multi annabel (gadobenate) contrast and without contrast as a single exam dose. FINDINGS: Bowel/Mesentery: The bowel loops are grossly unremarkable. The perisigmoid fat is intact. Bladder: Contours are smooth. No filling defects are seen. Retroperitoneum: No evidence of deep pelvic adenopathy. The fat planes about the pelvic sidewalls ar e intact. Reproductive Organs: No abnormal masses seen. Inguinal: Grossly unremarkable. Bony Structures: There is normal signal in the marrow of the osseous structures of the pelvis. Free Fluid: None seen. CONCLUSION: 1. Electronically signed by: Dante Dominguez MD 05/05/2018 5:58 PM EDT
--- NOTE | 2018-05-05 23:54 | P.PNONC ---
Subjective Interval history: frustrated that cystoscopy will not be done inpatient. says that he is not ready to go home, he is afraid that he will have urinary obstruction issues at home. transferred to oncology floor.patient seen earlier in the day Objective Vital Signs/Intake & Output: Vital Signs 05/05/18 00:00 05/05/18 04:00 05/05/18 12:00 Temperature 98.8 F 98.4 F 98.1 F Pulse Rate 76 82 89 Respiratory Rate 16 16 18 Blood Pressure 153/94 H 163/90 H 164/93 H Pulse Oximetry 97 93 L 98 05/05/18 16:00 05/05/18 20:00 Temperature 97.9 F Pulse Rate 68 80 Respiratory Rate 20 Blood Pressure 160/76 H 153/84 H Pulse Oximetry 97 96 Intake & Output 05/05/18 05/05/18 05/06/18 06:59 18:59 06:59 Intake Total 100 / 100 100 / 100 Output Total 1075 / 1075 1150 / 1150 Balance -975 / -975 -1050 / -1050 Weight 72.5 kg Intake: IV 100 / 100 100 / 100 Zosyn 3.375 GM Premix 50 ML @ 100 / 100 100 / 100 100 mls/hr IV.SIG Q6H KRISTAL Rx#: [id number] Output: Urine Amount (Catheter) 50 / 50 Indwelling Urethral Catheter 50 / 50 Wound Drainage 1025 / 1025 1150 / 1150 # 1 Left Lateral Back 450 / 450 675 / 675 # 2 Right Lateral Back 575 / 575 475 / 475 Result Diagrams: 05/02/18 12:27 05/04/18 05:09 Culture Results: Microbiology 04/30/18 16:45 Aerobic Blood Culture - Final Blood - Peripheral No growth in 5 days Anaerobic Blood Culture - Final No growth in 5 days 04/30/18 16:40 Aerobic Blood Culture - Final Blood - Peripheral No growth in 5 days Anaerobic Blood Culture - Final No growth in 5 days 05/01/18 10:50 Urine Culture - Final Clean Catch Urine No growth in 48 hours Imaging Studies: Impressions Pelvis MRI 05/05/18 00:00 CONCLUSION: Medications: Active Medications Generic Name Dose Route Start Last Admin Trade Name Freq PRN Reason Stop Dose Admin Acetaminophen 650 mg 04/30/18 10:29 05/03/18 21:56 Tylenol PO 650 mg Q4H PRN Administration Temp > 100.4 Enalaprilat 1.25 mg 05/02/18 10:59 05/03/18 08:48 Vasotec Inj IV.PUSH 1.25 mg Q6H PRN Administration SBP > 160 Finasteride 5 mg 05/02/18 15:45 05/05/18 08:56 Proscar PO 5 mg DAILY KRISTAL Administration Piperacillin/Tazobactam/Dextrose 50 mls @ 100 mls/hr 05/03/18 12:00 05/05/18 18:49 Zosyn 3.375 Gm Premix IV.SIG Infused Q6H KRISTAL Infusion Lactulose 30 ml 04/30/18 10:29 05/02/18 09:44 Lactulose Liq PO 30 ml DAILY PRN Administration SEVERE CONSITIPATION Morphine Sulfate 2 mg 05/05/18 12:36 05/05/18 14:24 Morphine Inj IV.PUSH 2 mg Q4H PRN Administration breakthrough pain Ondansetron HCl 4 mg 04/30/18 10:29 05/01/18 08:01 Zofran Inj IV.PUSH 4 mg Q6H PRN Administration NAUSEA OR VOMITING Senna/Docusate Sodium 1 tab 04/30/18 21:00 05/05/18 21:28 Kaya-Colace PO 1 tab BID KRISTAL Administration Tamsulosin HCl 0.4 mg 05/01/18 09:00 05/05/18 08:56 Flomax PO 0.4 mg DAILY KRISTAL Administration Objective Remarks: GENERAL: nad SKIN: Warm and dry. NECK: Supple, trachea midline. No JVD or lymphadenopathy. LYMPHATIC: No adenopathy. CARDIOVASCULAR: Regular rate and rhythm without murmurs. RESPIRATORY: Breath sounds equal bilaterally. No accessory muscle use. GASTROINTESTINAL: Abdomen soft, non-tender, nondistended. EXTREMITIES: No cyanosis, or edema. Assessment/Plan (1) Prostate mass Code(s): N42.9 - Disorder of prostate, unspecified Status: Acute (2) Acute renal failure (ARF) Code(s): N17.9 - Acute kidney failure, unspecified Status: Acute (3) Ureter obstruction Code(s): N13.5 - Crossing vessel and stricture of ureter without hydronephrosis Status: Acute (4) Leukocytosis Code(s): D72.829 - Elevated white blood cell count, unspecified Status: Acute - Plan This is a 83-year-old male who has presented to the emergency room with urinary obstruction. He was in acute renal failure. He has a large pelvic mass which was causing bladder outlet obstruction. This mass is vigorous with the prostate and extending the patient has undergone bilateral nephrostomy tube placements with improvement in his and his creatinine. Patient was found to have a sclerotic T8 lesion.He also has bilateral pelvic lymphadenopathy: 1. Large pelvic mass with bladder obstruction, T8 vertebral body lesion and bilateral pelvic adenopathy - bone scan shows additional metastatic lesions - CT guided biopsy completed. Biopsy pending - MRI pelvis today - PSA 9.3 2. Bladder obstruction status post bilateral nephrostomy tubes 3. Acute renal failure due to obstruction. Creatinine has now normalized (2) Acute renal failure (ARF) Qualifiers: Acute renal failure type: unspecified Qualified Code(s): N17.9 - Acute kidney failure, unspecified
[2018-05-06] MEDS: Piperacil/Tazo 3.375 GM Premix 50 ML IV.SIG SCH ×5 (00:10→23:23)
[2018-05-06] MEDS: Morphine Inj 4 MG/ML Vial IV.PUSH PRN (00:18)
[2018-05-06] MEDS ORDERED: HYDROmorphone PF Inj 2 MG/ML Vial IV.PUSH ONE (01:45)
[2018-05-06 06:26] LABS: Baso % (Auto) 0.3 % (0.0-2.0); Eos # (Auto) 0.3 th/mm3 (0.0-0.4); Eos % (Auto) 2.3 % (0.0-4.0); Hematocrit 38.8 % (39.0-51.0); Hemoglobin 12.9 gm/dL (13.0-17.0); Lymph # (Auto) 1.4 th/mm3 (1.0-4.8); Lymph % (Auto) 9.3 % (9.0-44.0); Mean Corpuscular HGB Conc 33.3 % (32.0-36.0); Mean Corpuscular Hemoglobin 30.6 pg (27.0-34.0); Mean Platelet Volume 6.8 fL (7.0-11.0); Mono % (Auto) 6.5 % (0.0-8.0); Neut # (Auto) 12.4 th/mm3 (1.8-7.7); Neut % (Auto) 81.6 % (16.0-70.0); Platelet Count 463 th/mm3 (150-450); Red Blood Count 4.22 mil/mm3 (4.50-5.90); Red Cell Distribution Width 13.2 % (11.6-17.2); White Blood Count 15.2 th/mm3 (4.0-11.0)
[2018-05-06 06:54] LABS: Calcium 8.1 mg/dL (8.5-10.1); Carbon Dioxide 29.2 meq/L (21.0-32.0)
[2018-05-06] MEDS: Finasteride 5 MG Tablet PO SCH (08:33)
[2018-05-06] MEDS: Senna/Docusate Sodium 8.6/50 MG Tablet PO SCH ×2 (08:33→23:27)
--- NOTE | 2018-05-06 13:20 | P.PNONC ---
Subjective Interval history: --Patient sitting on bedside commode. States that he is constipated and has not had a bowel movement in several days. He feels like this is contributing to most of his pain. --Patient very agitated and concerns to getting his cystoscopy, he states "I will not leave here without having my cystoscopy because I know exactly what will happen. I will go home and have a tremendous amount of pain" Objective Vital Signs/Intake & Output: Vital Signs 05/05/18 16:00 05/05/18 20:00 05/06/18 00:00 Temperature 97.9 F 97.0 F L Pulse Rate 68 80 77 Respiratory Rate 20 18 Blood Pressure 160/76 H 153/84 H 175/95 H Pulse Oximetry 97 96 94 L 05/06/18 04:00 05/06/18 08:00 05/06/18 11:00 Temperature 98.7 F 98 F 97.9 F Pulse Rate 79 83 83 Respiratory Rate 17 16 Blood Pressure 135/68 147/86 H 158/86 H Pulse Oximetry 97 94 L 94 L Intake & Output 05/05/18 05/06/18 05/06/18 18:59 06:59 18:59 Intake Total 100 / 100 200 / 200 Output Total 1150 / 1150 570 / 570 Balance -1050 / -1050 -370 / -370 Weight 73.4 kg Intake: IV 100 / 100 100 / 100 Zosyn 3.375 GM Premix 50 ML @ 100 / 100 100 / 100 100 mls/hr IV.SIG Q6H KRISTAL Rx#: [id number] Oral 100 / 100 Output: Stool 0 / 0 Urine Amount (Catheter) 0 / 0 Indwelling Urethral Catheter 0 / 0 Wound Drainage 1150 / 1150 570 / 570 # 1 Left Lateral Back 675 / 675 350 / 350 # 2 Right Lateral Back 475 / 475 220 / 220 Other: Date of Last Bowel Movement 05/02/18 05/01/18 # Bowel Movements 0 Result Diagrams: 05/06/18 05:30 05/06/18 05:30 Laboratory Results: Laboratory Results - last 24 hr 05/06/18 05/06/18 05:30 05:30 WBC 15.2 H RBC 4.22 L Hgb 12.9 L Hct 38.8 L MCV 92.0 MCH 30.6 MCHC 33.3 RDW 13.2 Plt Count 463 H MPV 6.8 L Neut % (Auto) 81.6 H Lymph % (Auto) 9.3 [place] % (Auto) 6.5 Eos % (Auto) 2.3 Baso % (Auto) 0.3 Neut # (Auto) 12.4 H Lymph # (Auto) 1.4 [place] # (Auto) 1.0 H Eos # (Auto) 0.3 Baso # (Auto) 0.0 WBC Differential . Differential Comment Auto diff final Sodium 141 Potassium 4.0 Chloride 104 Carbon Dioxide 29.2 Anion Gap 8 BUN 15 Creatinine 1.00 Estimated GFR 71 L Random Glucose 115 H Calcium 8.1 L Culture Results: Microbiology 04/30/18 16:45 Aerobic Blood Culture - Final Blood - Peripheral No growth in 5 days Anaerobic Blood Culture - Final No growth in 5 days 04/30/18 16:40 Aerobic Blood Culture - Final Blood - Peripheral No growth in 5 days Anaerobic Blood Culture - Final No growth in 5 days Imaging Studies: Impressions Pelvis MRI 05/05/18 00:00 CONCLUSION: 1. Medications: Active Medications Generic Name Dose Route Start Last Admin Trade Name Freq PRN Reason Stop Dose Admin Acetaminophen 650 mg 04/30/18 10:29 05/03/18 21:56 Tylenol PO 650 mg Q4H PRN Administration Temp > 100.4 Al Hydroxide/Mg Hydroxide 30 ml 04/30/18 10:29 05/06/18 08:33 Milk Of Magnesia Liq PO 30 ml Q12H PRN Administration Mild Constipation Enalaprilat 1.25 mg 05/02/18 10:59 05/03/18 08:48 Vasotec Inj IV.PUSH 1.25 mg Q6H PRN Administration SBP > 160 Finasteride 5 mg 05/02/18 15:45 05/06/18 08:33 Proscar PO 5 mg DAILY KRISTAL Administration Piperacillin/Tazobactam/Dextrose 50 mls @ 100 mls/hr 05/03/18 12:00 05/06/18 12:53 Zosyn 3.375 Gm Premix IV.SIG 100 mls/hr Q6H KRISTAL Administration Lactulose 30 ml 04/30/18 10:29 05/02/18 09:44 Lactulose Liq PO 30 ml DAILY PRN Administration SEVERE CONSITIPATION Morphine Sulfate 2 mg 05/05/18 12:36 05/06/18 00:18 Morphine Inj IV.PUSH 2 mg Q4H PRN Administration breakthrough pain Ondansetron HCl 4 mg 04/30/18 10:29 05/01/18 08:01 Zofran Inj IV.PUSH 4 mg Q6H PRN Administration NAUSEA OR VOMITING Senna/Docusate Sodium 1 tab 04/30/18 21:00 05/06/18 08:33 Kaya-Colace PO 1 tab BID KRISTAL Administration Tamsulosin HCl 0.4 mg 05/01/18 09:00 05/06/18 08:33 Flomax PO 0.4 mg DAILY KRISTAL Administration Objective Remarks: GENERAL: Well-nourished, well-developed elderly male patient. Sitting on bedside commode. SKIN: Warm and dry. HEAD: Normocephalic. EYES: No scleral icterus. No injection or drainage. NECK: Supple, trachea midline. CARDIOVASCULAR: Regular rate and rhythm without murmurs. RESPIRATORY: Breath sounds equal bilaterally. No accessory muscle use. GASTROINTESTINAL: Abdomen soft, non-tender, nondistended. Posterior bilateral nephrostomy drains in place. Dressings dry/intact. EXTREMITIES: No cyanosis, or edema. MUSCULOSKELETAL: Adequate muscle tone. NEUROLOGICAL: No obvious focal deficit. Awake, alert, and oriented x3. PSYCHIATRIC: Agitated; insight and judgment normal. Assessment/Plan (1) Prostate mass Code(s): N42.9 - Disorder of prostate, unspecified Status: Acute (2) Acute renal failure (ARF) Code(s): N17.9 - Acute kidney failure, unspecified Status: Acute (3) Ureter obstruction Code(s): N13.5 - Crossing vessel and stricture of ureter without hydronephrosis Status: Acute (4) Leukocytosis Code(s): D72.829 - Elevated white blood cell count, unspecified Status: Acute - Plan This is a 83-year-old male who has presented to the emergency room with urinary obstruction. He was in acute renal failure. He has a large pelvic mass which was causing bladder outlet obstruction. This mass is vigorous with the prostate and extending the patient has undergone bilateral nephrostomy tube placements with improvement in his and his creatinine. Patient was found to have a sclerotic T8 lesion.He also has bilateral pelvic lymphadenopathy: 1. Large pelvic mass with bladder obstruction, T8 vertebral body lesion and bilateral pelvic adenopathy - bone scan shows additional metastatic lesions - CT guided biopsy completed. Biopsy pending -MR pelvis shows large bulky tumor mass in the pelvis as well as separate iliac adenopathy. The mass is contiguous with an abnormal appearing prostate gland may represent a large prostate cancer. The mass also involves the right side of the rectum which most likely represents invasion. Osseous metastatic disease also noted. - PSA 9.3 2. Bladder obstruction status post bilateral nephrostomy tubes 3. Acute renal failure due to obstruction. Creatinine has now normalized 4. Patient adamant about having cystoscopy during his inpatient admission. We will defer this to his urologist. 5. Constipation. Please give patient dose of lactulose today and as needed for severe constipation. 6. Continue supportive care. Late entry @ 1450: Discussed with Dr. Kuo, patient to remain inpatient until pathology has resulted. Pending results, pt may require large mass biopsy. I will notify the attending. - Attending Statement The exam, history, and the medical decision-making described in the above note were completed with the assistance of the mid-level provider. I reviewed and agree with the findings presented. I attest that I had a [id number] encounter with the patient on the same day, and personally performed and documented my assessment and findings in the medical record. results of the MRI reviewed with patient. Has large pelvic mass extending from prostate to the bladder. bone biopsy pending. If biopsy is non-diagnostic then will ask urology to assist with biopsy pain not well controlled supportive care and pain control over the weekend (2) Acute renal failure (ARF) Qualifiers: Acute renal failure type: unspecified Qualified Code(s): N17.9 - Acute kidney failure, unspecified
[2018-05-06] MEDS ORDERED: Sod Phosphate/Sod Biphosphate (Adult) Enema 133 ML Bottle RECTAL PRN (15:24)
--- NOTE | 2018-05-06 15:24 | P.PN ---
Physical Exam Vital signs: Vital Signs 05/05/18 16:00 05/05/18 20:00 05/06/18 00:00 Temperature 97.9 F 97.0 F L Pulse Rate 68 80 77 Respiratory Rate 20 18 Blood Pressure 160/76 H 153/84 H 175/95 H Pulse Oximetry 97 96 94 L 05/06/18 04:00 05/06/18 08:00 05/06/18 11:00 Temperature 98.7 F 98 F 97.9 F Pulse Rate 79 83 83 Respiratory Rate 17 16 Blood Pressure 135/68 147/86 H 158/86 H Pulse Oximetry 97 94 L 94 L Intake & Output 05/05/18 05/06/18 05/06/18 18:59 06:59 18:59 Intake Total 100 / 100 200 / 200 50 / 50 Output Total 1150 / 1150 570 / 570 Balance -1050 / -1050 -370 / -370 50 / 50 Weight 73.4 kg Intake: IV 100 / 100 100 / 100 50 / 50 Zosyn 3.375 GM Premix 50 ML @ 100 / 100 100 / 100 50 / 50 100 mls/hr IV.SIG Q6H KRISTAL Rx#: [id number] Oral 100 / 100 Output: Stool 0 / 0 Urine Amount (Catheter) 0 / 0 Indwelling Urethral Catheter 0 / 0 Wound Drainage 1150 / 1150 570 / 570 # 1 Left Lateral Back 675 / 675 350 / 350 # 2 Right Lateral Back 475 / 475 220 / 220 Other: Date of Last Bowel Movement 05/02/18 05/01/18 # Bowel Movements 0 Narrative: Subjective With constipation sever took some lax/stool softeners and not responding well, will give Mag citrate and enema if need Nephrostomy tubes in place with clear urine minimal lux output Physical Exam GENERAL: Pleasant 83-year-old male, skin is cachectic chronically ill-appearing. CARDIOVASCULAR: Regular rate and rhythm without murmurs, gallops, or rubs. RESPIRATORY: Breath sounds equal bilaterally. No accessory muscle use. GASTROINTESTINAL: Abdomen soft, non-tender, nondistended. bilateral nephrostomy tubes in place- draining clear urine. Lux in place minimal output MUSCULOSKELETAL: No cyanosis, or edema. BACK: Nontender without obvious deformity. No CVA tenderness. 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 There were sclerotic focus in T8 which could be metastatic. Extensive bilateral pelvic lymphadenopathy -Ultrasound was performed which did show bilateral hydronephrosis, wall thickening of the urinary bladder -There is no urinary output despite replacement of Lux, CT review was performed and Lux is in place, however bladder seems rather decompressed and small. It appears that the mass has surrounded the bladder possible obstructing the ureters. -Urology was consulted --- keep bilateral nephrostomy and lux till ff up with them as OP -Nephrology ff- reanl function iproved significantly with nephrostomy tubes = Oncology ff = Appreciate agricultural consultant assistance. Continue to monitor. Nephrology, urology following. - plan for T8 disc biopsy today Suspected sepsis UTI -Tachypnea, leukocytosis, suspected UTI. -= Nephrology and urology are following. Continue with bilateral nephrostomy tubes. Due to leukocytosis and tachypnea, I have ordered urinalysis, a bilateral nephrostomy tubes. on broad-spectrum antibiotics. Follow-up cultures - negative sof far .. Lactate down Hypertension- overall better With systolic blood pressures up to the 180s today. We will order Vasotec as needed for hypertension. Electrolyte abnormalities- resolved - Hyperkalemia- corrected Severe constipation: laxatives / stool softeners DVT prevention -Sequential compression devices, avoid chemical prophylaxis at this time secondary to likely further procedures Case management consult for home health care services/needs PT consult- patient going home bilateral nephrostomy and lux- Discussed with patient, nurse - Urinary Catheter Management Indwelling Urethral Catheter Cath placed during this visit: yes Reason for continuing: Chronic Urinary Retention Insertion date: 04/30/18 Insertion time: 08:28 Results - Labs CBC & Chem 7: 05/06/18 05:30 05/06/18 05:30 Laboratory Results - last 24 hr 05/06/18 05/06/18 05:30 05:30 WBC 15.2 H RBC 4.22 L Hgb 12.9 L Hct 38.8 L MCV 92.0 MCH 30.6 MCHC 33.3 RDW 13.2 Plt Count 463 H MPV 6.8 L Neut % (Auto) 81.6 H Lymph % (Auto) 9.3 [place] % (Auto) 6.5 Eos % (Auto) 2.3 Baso % (Auto) 0.3 Neut # (Auto) 12.4 H Lymph # (Auto) 1.4 [place] # (Auto) 1.0 H Eos # (Auto) 0.3 Baso # (Auto) 0.0 WBC Differential . Differential Comment Auto diff final Sodium 141 Potassium 4.0 Chloride 104 Carbon Dioxide 29.2 Anion Gap 8 BUN 15 Creatinine 1.00 Estimated GFR 71 L Random Glucose 115 H Calcium 8.1 L - Imaging Impressions Pelvis MRI 05/05/18 00:00 CONCLUSION: 1. Assessment and Plan - Assessment (1) Acute renal failure (ARF) Code(s): N17.9 - Acute kidney failure, unspecified Status: Acute (2) Ureter obstruction Code(s): N13.5 - Crossing vessel and stricture of ureter without hydronephrosis Status: Acute (3) Leukocytosis Code(s): D72.829 - Elevated white blood cell count, unspecified Status: Acute (1) Acute renal failure (ARF) Qualifiers: Acute renal failure type: unspecified Qualified Code(s): N17.9 - Acute kidney failure, unspecified
[2018-05-06] MEDS ORDERED: Magnesium Citrate Liq 300 ML Bottle PO ONE (15:25)
[2018-05-07] MEDS: Morphine Inj 4 MG/ML Vial IV.PUSH PRN ×3 (03:18→17:28)
[2018-05-07] MEDS: Piperacil/Tazo 3.375 GM Premix 50 ML IV.SIG SCH ×3 (05:30→17:19)
[2018-05-07] MEDS: Finasteride 5 MG Tablet PO SCH (08:01)
[2018-05-07] MEDS: Senna/Docusate Sodium 8.6/50 MG Tablet PO SCH ×2 (08:01→21:52)
--- NOTE | 2018-05-07 09:36 | P.PN ---
Physical Exam Vital signs: Vital Signs 05/06/18 11:00 05/06/18 15:00 05/06/18 20:00 Temperature 97.9 F 97.7 F 98.2 F Pulse Rate 83 83 76 Respiratory Rate 16 16 18 Blood Pressure 158/86 H 129/83 143/78 H Pulse Oximetry 94 L 94 L 95 05/07/18 00:00 05/07/18 04:00 05/07/18 05:29 Temperature 98.3 F 97.8 F Pulse Rate 86 66 Respiratory Rate 18 18 18 Blood Pressure 146/76 H 150/77 H Pulse Oximetry 95 93 L 05/07/18 07:00 Temperature 98.0 F Pulse Rate 68 Respiratory Rate 18 Blood Pressure 143/92 H Pulse Oximetry 98 Intake & Output 05/06/18 05/07/18 05/07/18 18:59 06:59 18:59 Intake Total 1010 / 1010 100 / 100 50 / 50 Output Total 1025 / 1025 25 / 25 525 / 525 Balance -15 / -15 75 / 75 -475 / -475 Weight 73.5 kg Intake: IV 50 / 50 100 / 100 50 / 50 Zosyn 3.375 GM Premix 50 ML @ 50 / 50 100 / 100 50 / 50 100 mls/hr IV.SIG Q6H KRISTAL Rx#: [id number] Oral 960 / 960 Output: Urine 1025 / 1025 25 / 25 Wound Drainage 525 / 525 # 1 Left Lateral Back 275 / 275 # 2 Right Lateral Back 250 / 250 Other: Date of Last Bowel Movement 05/01/18 05/07/18 # Bowel Movements 1 Narrative: Subjective Follow-up acute renal failure secondary to obstructive uropathy from prostate cancer. 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 Patient is status post bilateral nephrostomy tube placement Says he had a bowel movement yesterday feels much better. No pain at this time. No fever or chills. Nephrostomy tubes in place with clear urine minimal lux output Physical Exam GENERAL: Pleasant 83-year-old male, skin is cachectic chronically ill-appearing. CARDIOVASCULAR: Regular rate and rhythm without murmurs, gallops, or rubs. RESPIRATORY: Breath sounds equal bilaterally. No accessory muscle use. GASTROINTESTINAL: Abdomen soft, non-tender, nondistended. bilateral nephrostomy tubes in place- draining clear urine. Lux in place minimal output MUSCULOSKELETAL: No cyanosis, or edema. BACK: Nontender without obvious deformity. No CVA tenderness. 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 There were sclerotic focus in T8 which could be metastatic. Extensive bilateral pelvic lymphadenopathy -Ultrasound was performed which did show bilateral hydronephrosis, wall thickening of the urinary bladder -There is no urinary output despite replacement of Lux, CT review was performed and Lux is in place, however bladder seems rather decompressed and small. It appears that the mass has surrounded the bladder possible obstructing the ureters. -Urology was consulted --- keep bilateral nephrostomy and lux till ff up with them as OP -Nephrology ff- reanl function iproved significantly with nephrostomy tubes = Oncology ff = Appreciate market research consultant assistance. Continue to monitor. Nephrology, urology following. - plan for T8 disc biopsy today Suspected sepsis UTI -Tachypnea, leukocytosis, suspected UTI. -= Nephrology and urology are following. Continue with bilateral nephrostomy tubes. Due to leukocytosis and tachypnea, I have ordered urinalysis, a bilateral nephrostomy tubes. on broad-spectrum antibiotics. Follow-up cultures - negative sof far .. Lactate down Hypertension- overall better With systolic blood pressures up to the 180s today. We will order Vasotec as needed for hypertension. Electrolyte abnormalities- resolved - Hyperkalemia- corrected Severe constipation: laxatives / stool softeners DVT prevention -Sequential compression devices, avoid chemical prophylaxis at this time secondary to likely further procedures Case management consult for home health care services/needs PT consult- patient going home with bilateral nephrostomy and lux- Per hem/onc awaiting biopsy results prior to be DC Discussed with patient, nurse - Urinary Catheter Management Indwelling Urethral Catheter Cath placed during this visit: yes Reason for continuing: Chronic Urinary Retention Insertion date: 04/30/18 Insertion time: 08:28 Results - Labs CBC & Chem 7: 05/06/18 05:30 05/06/18 05:30 - Imaging Impressions Pelvis MRI 05/05/18 00:00 CONCLUSION: 1. Assessment and Plan - Assessment (1) Acute renal failure (ARF) Code(s): N17.9 - Acute kidney failure, unspecified Status: Acute (2) Ureter obstruction Code(s): N13.5 - Crossing vessel and stricture of ureter without hydronephrosis Status: Acute (3) Leukocytosis Code(s): D72.829 - Elevated white blood cell count, unspecified Status: Acute (1) Acute renal failure (ARF) Qualifiers: Acute renal failure type: unspecified Qualified Code(s): N17.9 - Acute kidney failure, unspecified
[2018-05-07] MEDS ORDERED: Morphine Sulfate Oral Liq 10 MG/0.5 ML Syringe PO ONE (21:31)
[2018-05-08] MEDS: Piperacil/Tazo 3.375 GM Premix 50 ML IV.SIG SCH ×5 (01:32→23:37)
[2018-05-08] MEDS: Senna/Docusate Sodium 8.6/50 MG Tablet PO SCH ×2 (08:38→22:24)
[2018-05-08] MEDS: Finasteride 5 MG Tablet PO SCH (08:38)
[2018-05-08] MEDS: Morphine Inj 4 MG/ML Vial IV.PUSH PRN (08:41)
--- NOTE | 2018-05-08 12:48 | P.PNIM ---
Subjective Interval history: Follow-up acute renal failure secondary to obstructive uropathy from prostate cancer. 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 Patient is status post bilateral nephrostomy tube placement Says he had a bowel movement yesterday feels much better. No pain at this time. No fever or chills. Nephrostomy tubes in place with clear urine minimal lux output BUT APPEARS DARK 7-29 NO NEW ISSUES PT AND OT MAY NEED SNF VS [facility] Physical Exam Vital signs: Vital Signs 05/07/18 15:00 05/07/18 20:00 05/07/18 22:00 Temperature 98.2 F Pulse Rate 84 62 72 Respiratory Rate 16 Blood Pressure 165/96 H Pulse Oximetry 94 L 05/07/18 22:25 05/08/18 00:00 05/08/18 03:00 Temperature Pulse Rate 62 Respiratory Rate 16 18 Blood Pressure Pulse Oximetry 05/08/18 04:00 05/08/18 06:00 05/08/18 07:00 Temperature Pulse Rate 68 84 79 Respiratory Rate 18 Blood Pressure 168/98 H Pulse Oximetry 96 05/08/18 11:00 Temperature 98.5 F Pulse Rate 79 Respiratory Rate 18 Blood Pressure 149/81 H Pulse Oximetry 97 Intake & Output 05/07/18 05/08/18 05/08/18 18:59 06:59 18:59 Intake Total 660 / 660 350 / 350 Output Total 1075 / 1075 1500 / 1500 Balance -415 / -415 -1150 / -1150 Weight 72.9 kg Intake: IV 150 / 150 100 / 100 Zosyn 3.375 GM Premix 50 ML @ 150 / 150 100 / 100 100 mls/hr IV.SIG Q6H KRISTAL Rx#: [id number] Oral 510 / 510 100 / 100 Other 150 / 150 Output: Wound Drainage 1075 / 1075 1500 / 1500 # 1 Left Lateral Back 575 / 575 800 / 800 # 2 Right Lateral Back 500 / 500 700 / 700 Other: Date of Last Bowel Movement 05/06/18 05/02/18 05/08/18 Narrative: GENERAL: Cachectic chronically ill-appearing but awake alert and oriented talkative and cooperative SKIN: Warm and dry. HEAD: Atraumatic. Normocephalic. EYES: Pupils equal and round. No scleral icterus. No injection or drainage. ENT: No nasal bleeding or discharge. Mucous membranes pink and moist. NECK: Trachea midline. No JVD. CARDIOVASCULAR: Regular rate and rhythm. RESPIRATORY: No accessory muscle use. Clear to auscultation. Breath sounds equal bilaterally. GASTROINTESTINAL: Abdomen soft, non-tender, nondistended. Hepatic and splenic margins not palpable. Bilateral nephrostomy tubes in place with good urine output as well as Lux catheter in place with the quite dark output MUSCULOSKELETAL: Extremities without clubbing, cyanosis, or edema. No obvious deformities. NEUROLOGICAL: Awake and alert. No obvious cranial nerve deficits. Motor grossly within normal limits. 4 out of 5 muscle strength in the arms and legs. Normal speech. PSYCHIATRIC: Appropriate mood and affect; insight and judgment normal. - Urinary Catheter Management Indwelling Urethral Catheter Cath placed during this visit: yes Reason for continuing: Chronic Urinary Retention Insertion date: 04/30/18 Insertion time: 08:28 Results - Labs CBC & Chem 7: 05/06/18 05:30 05/06/18 05:30 - Procedures BL NEPHROSTOMY TUBES Assessment and Plan - Assessment (1) Acute renal failure (ARF) Code(s): N17.9 - Acute kidney failure, unspecified Status: Acute (2) Hyperkalemia Code(s): E87.5 - Hyperkalemia Status: Acute (3) Hyponatremia Code(s): E87.1 - Hypo-osmolality and hyponatremia Status: Acute (4) Leukocytosis Code(s): D72.829 - Elevated white blood cell count, unspecified Status: Acute (5) Prostate mass Code(s): N42.9 - Disorder of prostate, unspecified Status: Acute (6) Ureter obstruction Code(s): N13.5 - Crossing vessel and stricture of ureter without hydronephrosis Status: Acute - Plan 83 years old male Acute renal failure secondary to Obstructive uropathy likely from prostate cancer S/P bilateral nephrostomy tube placement 04/30 stage IV- bone scan with metastasis T8 - renal functions are improved -CT scan showed a rather large mass 9.4 x 7.4 cm in the pelvis contiguous with the prostate gland with bilateral hydronephrosis and hydroureter with obstruction caused by pelvic mass. There were sclerotic focus in T8 which could be metastatic. Extensive bilateral pelvic lymphadenopathy -Ultrasound was performed which did show bilateral hydronephrosis, wall thickening of the urinary bladder -There is no urinary output despite replacement of Lux, CT review was performed and Lux is in place, however bladder seems rather decompressed and small. It appears that the mass has surrounded the bladder possible obstructing the ureters. -Urology was consulted --- keep bilateral nephrostomy and Lux till ff up with them as OP -Nephrology ff- reanl function improved significantly with nephrostomy tubes = Oncology ff = Appreciate sr solutions consultant assistance. Continue to monitor. Nephrology, urology following. - plan for T8 disc biopsy SP BL NEPHROSTOMY TUBES AND LUX CATHETER IN PLACE Suspected sepsis UTI -Tachypnea, leukocytosis, suspected UTI. -= Nephrology and urology are following. Continue with bilateral nephrostomy tubes. Due to leukocytosis and tachypnea, I have ordered urinalysis, a bilateral nephrostomy tubes. on broad-spectrum antibiotics. Follow-up cultures - negative so far .. Lactate down Hypertension- overall better With systolic blood pressures up to the 180s today. We will order Vasotec as needed for hypertension. Electrolyte abnormalities- resolved - Hyperkalemia- corrected Severe constipation: laxatives / stool softeners DVT prevention -Sequential compression devices, avoid chemical prophylaxis at this time secondary to likely further procedures Case management consult for home health care services/needs PT consult- patient going home with bilateral nephrostomy and lux- Per hem/onc awaiting biopsy results prior to be DC Discussed with patient, nurse (1) Acute renal failure (ARF) Qualifiers: Acute renal failure type: unspecified Qualified Code(s): N17.9 - Acute kidney failure, unspecified
[2018-05-08] MEDS: Temazepam 15 MG Capsule PO PRN (23:37)
[2018-05-09] MEDS: Piperacil/Tazo 3.375 GM Premix 50 ML IV.SIG SCH ×3 (06:00→18:14)
[2018-05-09 06:45] LABS: INR 1.1 Ratio; Prothrombin Time 11.4 sec (9.8-11.6)
[2018-05-09 06:49] LABS: Baso % (Auto) 0.3 % (0.0-2.0); Eos # (Auto) 0.2 th/mm3 (0.0-0.4); Eos % (Auto) 1.3 % (0.0-4.0); Hematocrit 39.8 % (39.0-51.0); Hemoglobin 13.2 gm/dL (13.0-17.0); Lymph # (Auto) 1.4 th/mm3 (1.0-4.8); Lymph % (Auto) 11.5 % (9.0-44.0); Mean Corpuscular HGB Conc 33.2 % (32.0-36.0); Mean Corpuscular Hemoglobin 30.6 pg (27.0-34.0); Mean Corpuscular Volume 92.2 fL (80.0-100.0); Mean Platelet Volume 6.9 fL (7.0-11.0); Mono # (Auto) 0.8 th/mm3 (0.0-0.9); Mono % (Auto) 6.5 % (0.0-8.0); Neut % (Auto) 80.4 % (16.0-70.0); Platelet Count 378 th/mm3 (150-450); Red Blood Count 4.32 mil/mm3 (4.50-5.90); Red Cell Distribution Width 13.3 % (11.6-17.2); White Blood Count 12.5 th/mm3 (4.0-11.0)
[2018-05-09 07:03] LABS: Albumin 2.4 g/dL (3.4-5.0); Anion Gap 5 meq/L (5-15); Aspartate Aminotransferase 37 U/L (15-37); Blood Urea Nitrogen 13 mg/dL (7-18); Carbon Dioxide 30.6 meq/L (21.0-32.0); Chloride 105 meq/L (98-107); Glomerular Filtration Rate 81 mL/min (>89); Glucose,Random 102 mg/dL (74-106); Potassium 3.8 meq/L (3.5-5.1); Sodium 141 meq/L (136-145)
[2018-05-09 07:12] LABS: Alanine Aminotransferase 26 U/L (12-78); Alkaline Phosphatase 84 U/L (45-117); Free T4 (Free Thyroxine) 1.38 ng/dL (0.76-1.46); Phosphorus 2.5 mg/dL (2.5-4.9); Total Protein 6.3 g/dL (6.4-8.2)
[2018-05-09] MEDS: Finasteride 5 MG Tablet PO SCH (09:06)
[2018-05-09] MEDS: Senna/Docusate Sodium 8.6/50 MG Tablet PO SCH ×2 (09:07→20:40)
[2018-05-09] MEDS: Morphine Inj 4 MG/ML Vial IV.PUSH PRN (12:23)
--- NOTE | 2018-05-09 14:31 | P.PNONC ---
Subjective Interval history: T-max 99.0F. Patient is lying in bed upon approach, in no acute distress. His is at the bedside. He has no complaints at this time. He reports his appetite has increased during this admission. Objective Vital Signs/Intake & Output: Vital Signs 05/08/18 15:00 05/08/18 18:55 05/08/18 20:04 Temperature 98.2 F 98 F Pulse Rate 89 73 76 Respiratory Rate 18 16 Blood Pressure 154/85 H 144/83 H Pulse Oximetry 96 96 05/08/18 22:17 05/08/18 23:00 05/09/18 00:07 Temperature 99 F Pulse Rate 86 93 H 63 Respiratory Rate 18 Blood Pressure 158/89 H Pulse Oximetry 95 05/09/18 02:01 05/09/18 03:00 05/09/18 04:09 Temperature 98 F Pulse Rate 71 74 78 Respiratory Rate 16 Blood Pressure 119/62 Pulse Oximetry 95 05/09/18 08:57 05/09/18 12:20 Temperature 97.7 F 97.6 F Pulse Rate 69 84 Respiratory Rate 16 16 Blood Pressure 148/94 H 138/86 Pulse Oximetry 94 L 97 Intake & Output 05/08/18 05/09/18 05/09/18 18:59 06:59 18:59 Intake Total 660 / 660 105 / 105 50 / 50 Output Total 400 / 400 1550 / 1550 375 / 375 Balance 260 / 260 -1445 / -1445 -325 / -325 Weight 71.2 kg Intake: IV 100 / 100 105 / 105 50 / 50 Zosyn 3.375 GM Premix 50 ML @ 100 / 100 105 / 105 50 / 50 100 mls/hr IV.SIG Q6H KRISTAL Rx#: [id number] Oral 560 / 560 Output: Urine Amount (Catheter) 50 / 50 Indwelling Urethral Catheter 50 / 50 Urine Amount (Stoma) 1500 / 1500 375 / 375 Nephrostomy Tube Left 825 / 825 200 / 200 Nephrostomy Tube Right 675 / 675 175 / 175 Wound Drainage 400 / 400 # 1 Left Lateral Back 150 / 150 # 2 Right Lateral Back 250 / 250 Other: Date of Last Bowel Movement 05/08/18 05/08/18 05/09/18 # Bowel Movements 4 Result Diagrams: 05/10/18 06:35 05/10/18 06:35 Laboratory Results: Laboratory Results - last 24 hr 05/09/18 05/09/18 05/09/18 05:50 05:50 05:50 WBC 12.5 H RBC 4.32 L Hgb 13.2 Hct 39.8 MCV 92.2 MCH 30.6 MCHC 33.2 RDW 13.3 Plt Count 378 MPV 6.9 L Neut % (Auto) 80.4 H Lymph % (Auto) 11.5 [place] % (Auto) 6.5 Eos % (Auto) 1.3 Baso % (Auto) 0.3 Neut # (Auto) 10.0 H Lymph # (Auto) 1.4 [place] # (Auto) 0.8 Eos # (Auto) 0.2 Baso # (Auto) 0.0 WBC Differential . Differential Comment Auto diff final PT 11.4 INR 1.1 Sodium 141 Potassium 3.8 Chloride 105 Carbon Dioxide 30.6 Anion Gap 5 BUN 13 Creatinine 0.90 Estimated GFR 81 L Random Glucose 102 Calcium 8.0 L Phosphorus 2.5 Magnesium 2.0 Total Bilirubin 0.8 AST 37 ALT 26 Alkaline Phosphatase 84 Total Protein 6.3 L Albumin 2.4 L TSH 1.850 Free T4 1.38 Medications: Active Medications Generic Name Dose Route Start Last Admin Trade Name Freq PRN Reason Stop Dose Admin Acetaminophen 650 mg 04/30/18 10:29 05/03/18 21:56 Tylenol PO 650 mg Q4H PRN Administration Temp > 100.4 Al Hydroxide/Mg Hydroxide 30 ml 04/30/18 10:29 05/06/18 08:33 Milk Of Magnesia Liq PO 30 ml Q12H PRN Administration Mild Constipation Bisacodyl 10 mg 04/30/18 10:29 05/08/18 04:22 Dulcolax Supp RECTAL 10 mg DAILY PRN Administration SEVERE CONSITIPATION Enalaprilat 1.25 mg 05/02/18 10:59 05/03/18 08:48 Vasotec Inj IV.PUSH 1.25 mg Q6H PRN Administration SBP > 160 Finasteride 5 mg 05/02/18 15:45 05/09/18 09:06 Proscar PO 5 mg DAILY KRISTAL Administration Piperacillin/Tazobactam/Dextrose 50 mls @ 100 mls/hr 05/03/18 12:00 05/09/18 12:45 Zosyn 3.375 Gm Premix IV.SIG Infused Q6H KRISTAL Infusion Lactulose 30 ml 04/30/18 10:29 05/08/18 01:41 Lactulose Liq PO 30 ml DAILY PRN Administration SEVERE CONSITIPATION Morphine Sulfate 2 mg 05/05/18 12:36 05/09/18 12:23 Morphine Inj IV.PUSH 2 mg Q4H PRN Administration breakthrough pain Ondansetron HCl 4 mg 04/30/18 10:29 05/01/18 08:01 Zofran Inj IV.PUSH 4 mg Q6H PRN Administration NAUSEA OR VOMITING Senna/Docusate Sodium 1 tab 04/30/18 21:00 05/09/18 09:07 Kaya-Colace PO Not Given BID KRISTAL Sennosides 17.2 mg 04/30/18 10:29 05/07/18 17:29 Senokot PO 17.2 mg Q12H PRN Administration Moderate Constipation Tamsulosin HCl 0.4 mg 05/01/18 09:00 05/09/18 09:06 Flomax PO 0.4 mg DAILY KRISTAL Administration Temazepam 15 mg 04/30/18 10:29 05/08/18 23:37 Restoril PO 15 mg HS PRN Administration INSOMNIA Objective Remarks: GENERAL: Elderly male patient, lying in bed. In no acute distress. SKIN: Warm and dry. HEAD: Normocephalic. EYES: No scleral icterus. No injection or drainage. NECK: Supple, trachea midline. CARDIOVASCULAR: Regular rate and rhythm without murmurs. RESPIRATORY: Anterior breath sounds clear, equal bilaterally. No accessory muscle use. GASTROINTESTINAL: Abdomen soft, non-tender, nondistended. Posterior bilateral nephrostomy drains in place and draining. EXTREMITIES: No cyanosis, or edema. MUSCULOSKELETAL: Adequate muscle tone. NEUROLOGICAL: No obvious focal deficit. Awake, alert, and oriented x3. PSYCHIATRIC: Normal mood; insight and judgment normal. Assessment/Plan (1) Prostate mass Code(s): N42.9 - Disorder of prostate, unspecified Status: Acute (2) Acute renal failure (ARF) Code(s): N17.9 - Acute kidney failure, unspecified Status: Acute (3) Ureter obstruction Code(s): N13.5 - Crossing vessel and stricture of ureter without hydronephrosis Status: Acute (4) Leukocytosis Code(s): D72.829 - Elevated white blood cell count, unspecified Status: Acute - Plan This is a 83-year-old male who has presented to the emergency room with urinary obstruction. He was in acute renal failure. He has a large pelvic mass which was causing bladder outlet obstruction. This mass is vigorous with the prostate and extending the patient has undergone bilateral nephrostomy tube placements with improvement in his and his creatinine. Patient was found to have a sclerotic T8 lesion.He also has bilateral pelvic lymphadenopathy and a PSA of 9.3. 1. Awaiting bone marrow biopsy results. This was discussed with the patient and his today. 2. Bladder obstruction status post bilateral nephrostomy tubes. 3. Patient remains adamant about having cystoscopy during his inpatient admission. We will defer this to his urologist. 4. We are waiting on bone lesion pathology, prior to discharge. As the patient may require the large pelvic mass to be biopsied if the bone marrow biopsy is inconclusive. (2) Acute renal failure (ARF) Qualifiers: Acute renal failure type: unspecified Qualified Code(s): N17.9 - Acute kidney failure, unspecified
--- NOTE | 2018-05-09 15:19 | P.PNIM ---
Subjective Interval history: Follow-up acute renal failure secondary to obstructive uropathy from prostate cancer. 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 Patient is status post bilateral nephrostomy tube placement Says he had a bowel movement yesterday feels much better. No pain at this time. No fever or chills. Nephrostomy tubes in place with clear urine minimal lux output BUT APPEARS DARK 05-08 NO NEW ISSUES PT AND OT MAY NEED SNF 05-09 WILL NEED SNF AT [place] STILL HAS BL NEPHROSTOMY TUBES AND LUX DW RN AND PATIENT AND CASE MANAGEMENT AND FAMILY NEEDS PATHOLOGY BACK Physical Exam Vital signs: Vital Signs 05/08/18 18:55 05/08/18 20:04 05/08/18 22:17 Temperature 98 F Pulse Rate 73 76 86 Respiratory Rate 16 Blood Pressure 144/83 H Pulse Oximetry 96 05/08/18 23:00 05/09/18 00:07 05/09/18 02:01 Temperature 99 F Pulse Rate 93 H 63 71 Respiratory Rate 18 Blood Pressure 158/89 H Pulse Oximetry 95 05/09/18 03:00 05/09/18 04:09 05/09/18 08:57 Temperature 98 F 97.7 F Pulse Rate 74 78 69 Respiratory Rate 16 16 Blood Pressure 119/62 148/94 H Pulse Oximetry 95 94 L 05/09/18 12:20 Temperature 97.6 F Pulse Rate 84 Respiratory Rate 16 Blood Pressure 138/86 Pulse Oximetry 97 Intake & Output 05/08/18 05/09/18 05/09/18 18:59 06:59 18:59 Intake Total 660 / 660 105 / 105 50 / 50 Output Total 400 / 400 1550 / 1550 375 / 375 Balance 260 / 260 -1445 / -1445 -325 / -325 Weight 71.2 kg Intake: IV 100 / 100 105 / 105 50 / 50 Zosyn 3.375 GM Premix 50 ML @ 100 / 100 105 / 105 50 / 50 100 mls/hr IV.SIG Q6H [facility] Rx#: [id number] Oral 560 / 560 Output: Urine Amount (Catheter) 50 / 50 Indwelling Urethral Catheter 50 / 50 Urine Amount (Stoma) 1500 / 1500 375 / 375 Nephrostomy Tube Left 825 / 825 200 / 200 Nephrostomy Tube Right 675 / 675 175 / 175 Wound Drainage 400 / 400 # 1 Left Lateral Back 150 / 150 # 2 Right Lateral Back 250 / 250 Other: Date of Last Bowel Movement 05/08/18 05/08/18 05/09/18 # Bowel Movements 4 Narrative: GENERAL: Cachectic chronically ill-appearing but awake alert and oriented talkative and cooperative SKIN: Warm and dry. HEAD: Atraumatic. Normocephalic. EYES: Pupils equal and round. No scleral icterus. No injection or drainage. ENT: No nasal bleeding or discharge. Mucous membranes pink and moist. NECK: Trachea midline. No JVD. CARDIOVASCULAR: Regular rate and rhythm. RESPIRATORY: No accessory muscle use. Clear to auscultation. Breath sounds equal bilaterally. GASTROINTESTINAL: Abdomen soft, non-tender, nondistended. Hepatic and splenic margins not palpable. Bilateral nephrostomy tubes in place with good urine output as well as Lux catheter in place with the quite dark output MUSCULOSKELETAL: Extremities without clubbing, cyanosis, or edema. No obvious deformities. NEUROLOGICAL: Awake and alert. No obvious cranial nerve deficits. Motor grossly within normal limits. 4 out of 5 muscle strength in the arms and legs. Normal speech. PSYCHIATRIC: Appropriate mood and affect; insight and judgment normal. - Urinary Catheter Management Indwelling Urethral Catheter Cath placed during this visit: yes Reason for continuing: Chronic Urinary Retention Insertion date: 04/30/18 Insertion time: 08:28 Results - Labs CBC & Chem 7: 05/09/18 05:50 05/09/18 05:50 Laboratory Results - last 24 hr 05/09/18 05/09/18 05/09/18 05:50 05:50 05:50 WBC 12.5 H RBC 4.32 L Hgb 13.2 Hct 39.8 MCV 92.2 MCH 30.6 MCHC 33.2 RDW 13.3 Plt Count 378 MPV 6.9 L Neut % (Auto) 80.4 H Lymph % (Auto) 11.5 [place] % (Auto) 6.5 Eos % (Auto) 1.3 Baso % (Auto) 0.3 Neut # (Auto) 10.0 H Lymph # (Auto) 1.4 [place] # (Auto) 0.8 Eos # (Auto) 0.2 Baso # (Auto) 0.0 WBC Differential . Differential Comment Auto diff final PT 11.4 INR 1.1 Sodium 141 Potassium 3.8 Chloride 105 Carbon Dioxide 30.6 Anion Gap 5 BUN 13 Creatinine 0.90 Estimated GFR 81 L Random Glucose 102 Calcium 8.0 L Phosphorus 2.5 Magnesium 2.0 Total Bilirubin 0.8 AST 37 ALT 26 Alkaline Phosphatase 84 Total Protein 6.3 L Albumin 2.4 L TSH 1.850 Free T4 1.38 - Procedures BL NEPHROSTOMY TUBES Assessment and Plan - Assessment (1) Acute renal failure (ARF) Code(s): N17.9 - Acute kidney failure, unspecified Status: Acute (2) Hyperkalemia Code(s): E87.5 - Hyperkalemia Status: Acute (3) Hyponatremia Code(s): E87.1 - Hypo-osmolality and hyponatremia Status: Acute (4) Leukocytosis Code(s): D72.829 - Elevated white blood cell count, unspecified Status: Acute (5) Prostate mass Code(s): N42.9 - Disorder of prostate, unspecified Status: Acute (6) Ureter obstruction Code(s): N13.5 - Crossing vessel and stricture of ureter without hydronephrosis Status: Acute - Plan 83 years old male Acute renal failure secondary to Obstructive uropathy likely from prostate cancer S/P bilateral nephrostomy tube placement 04/30 stage IV- bone scan with metastasis T8 - renal functions are improved -CT scan showed a rather large mass 9.4 x 7.4 cm in the pelvis contiguous with the prostate gland with bilateral hydronephrosis and hydroureter with obstruction caused by pelvic mass. There were sclerotic focus in T8 which could be metastatic. Extensive bilateral pelvic lymphadenopathy -Ultrasound was performed which did show bilateral hydronephrosis, wall thickening of the urinary bladder -There is no urinary output despite replacement of Lux, CT review was performed and Lux is in place, however bladder seems rather decompressed and small. It appears that the mass has surrounded the bladder possible obstructing the ureters. -Urology was consulted --- keep bilateral nephrostomy and Lux till ff up with them as OP -Nephrology ff- reanl function improved significantly with nephrostomy tubes = Oncology ff = Appreciate guidance consultant assistance. Continue to monitor. Nephrology, urology following. - plan for T8 disc biopsy SP BL NEPHROSTOMY TUBES AND LUX CATHETER IN PLACE Suspected sepsis UTI -Tachypnea, leukocytosis, suspected UTI. -= Nephrology and urology are following. Continue with bilateral nephrostomy tubes. Due to leukocytosis and tachypnea, I have ordered urinalysis, a bilateral nephrostomy tubes. on broad-spectrum antibiotics. Follow-up cultures - negative so far .. Lactate down Hypertension- overall better With systolic blood pressures up to the 180s today. We will order Vasotec as needed for hypertension. Electrolyte abnormalities- resolved - Hyperkalemia- corrected Severe constipation: laxatives / stool softeners DVT prevention -Sequential compression devices, avoid chemical prophylaxis at this time secondary to likely further procedures Case management consult for home health care services/needs PT consult- patient going home with bilateral nephrostomy and lux- Per hem/onc awaiting biopsy results prior to be DC Discussed with patient, nurse WILL NEED SNF AT [place] AWAIT PATHOLOGY Code Status: FULL CODE Discussed Condition With: RN AND PT AND CM AND FAMILY Discharge Planning: WILL NEED SNF AT [place] (1) Acute renal failure (ARF) Qualifiers: Acute renal failure type: unspecified Qualified Code(s): N17.9 - Acute kidney failure, unspecified
[2018-05-09 16:09] LABS: Hemoglobin A1c 4.9 % (4.3-6.0)
[2018-05-10] MEDS: Piperacil/Tazo 3.375 GM Premix 50 ML IV.SIG SCH ×5 (00:34→23:00)
[2018-05-10] MEDS: Morphine Inj 4 MG/ML Vial IV.PUSH PRN ×2 (06:44→19:39)
[2018-05-10 07:18] LABS: Baso # (Auto) 0.1 th/mm3 (0.0-0.2); Baso % (Auto) 0.7 % (0.0-2.0); Eos # (Auto) 0.1 th/mm3 (0.0-0.4); Hematocrit 39.7 % (39.0-51.0); Hemoglobin 13.2 gm/dL (13.0-17.0); Lymph # (Auto) 1.7 th/mm3 (1.0-4.8); Lymph % (Auto) 13.5 % (9.0-44.0); Mean Corpuscular HGB Conc 33.2 % (32.0-36.0); Mean Corpuscular Hemoglobin 30.5 pg (27.0-34.0); Mean Corpuscular Volume 91.8 fL (80.0-100.0); Mono # (Auto) 0.9 th/mm3 (0.0-0.9); Mono % (Auto) 7.1 % (0.0-8.0); Neut # (Auto) 9.9 th/mm3 (1.8-7.7); Neut % (Auto) 77.7 % (16.0-70.0); Platelet Count 391 th/mm3 (150-450); Red Blood Count 4.32 mil/mm3 (4.50-5.90); Red Cell Distribution Width 13.1 % (11.6-17.2); White Blood Count 12.7 th/mm3 (4.0-11.0)
[2018-05-10 07:54] LABS: Albumin 2.5 g/dL (3.4-5.0); Anion Gap 9 meq/L (5-15); Aspartate Aminotransferase 41 U/L (15-37); Blood Urea Nitrogen 16 mg/dL (7-18); Calcium 8.5 mg/dL (8.5-10.1); Carbon Dioxide 26.7 meq/L (21.0-32.0); Chloride 104 meq/L (98-107); Glomerular Filtration Rate 77 mL/min (>89); Glucose,Random 100 mg/dL (74-106); Magnesium 2.1 mg/dL (1.5-2.5); Potassium 3.9 meq/L (3.5-5.1); Sodium 140 meq/L (136-145)
[2018-05-10 07:55] LABS: Alanine Aminotransferase 28 U/L (12-78)
[2018-05-10 07:58] LABS: Alkaline Phosphatase 87 U/L (45-117); Phosphorus 2.4 mg/dL (2.5-4.9); Total Protein 6.8 g/dL (6.4-8.2)
[2018-05-10] MEDS: Finasteride 5 MG Tablet PO SCH (08:58)
[2018-05-10] MEDS: Senna/Docusate Sodium 8.6/50 MG Tablet PO SCH ×2 (08:59→22:54)
--- NOTE | 2018-05-10 10:41 | P.PNONC ---
Subjective Interval history: Afebrile Patient frustrated that he still does not know biopsy results Reports "urology is going to the procedure and take out these nephrostomy tubes before I leave no matter what" Denies pain No other acute complaints Objective Vital Signs/Intake & Output: Vital Signs 05/09/18 12:20 05/09/18 16:45 05/09/18 20:01 Temperature 97.6 F 99.4 F Pulse Rate 84 90 74 Respiratory Rate 16 16 Blood Pressure 138/86 121/75 Pulse Oximetry 97 95 05/09/18 20:33 05/09/18 22:01 05/10/18 00:05 Temperature 98.3 F Pulse Rate 84 93 H 76 Respiratory Rate 18 Blood Pressure 136/73 Pulse Oximetry 95 05/10/18 00:29 05/10/18 01:34 05/10/18 04:00 Temperature 98.2 F 98.1 F Pulse Rate 83 88 70 Respiratory Rate 16 17 Blood Pressure 119/72 137/76 Pulse Oximetry 95 95 05/10/18 04:08 05/10/18 06:00 Temperature Pulse Rate 88 70 Respiratory Rate Blood Pressure Pulse Oximetry Intake & Output 05/09/18 05/10/18 05/10/18 18:59 06:59 18:59 Intake Total 580 / 580 55 / 55 Output Total 875 / 875 350 / 350 Balance -295 / -295 -295 / -295 Weight 144 lb 13.499 oz Intake: IV 100 / 100 55 / 55 Zosyn 3.375 GM Premix 50 ML @ 100 / 100 55 / 55 100 mls/hr IV.SIG Q6H [facility] Rx#: [id number] Oral 480 / 480 Output: Urine Amount (Stoma) 875 / 875 350 / 350 Nephrostomy Tube Left 475 / 475 200 / 200 Nephrostomy Tube Right 400 / 400 150 / 150 Other: Date of Last Bowel Movement 05/09/18 05/09/18 Result Diagrams: 05/10/18 06:35 05/10/18 06:35 Laboratory Results: Laboratory Results - last 24 hr 05/09/18 05/10/18 05/10/18 05:50 06:35 06:35 WBC 12.7 H RBC 4.32 L Hgb 13.2 Hct 39.7 MCV 91.8 MCH 30.5 MCHC 33.2 RDW 13.1 Plt Count 391 MPV 7.0 Neut % (Auto) 77.7 H Lymph % (Auto) 13.5 [place] % (Auto) 7.1 Eos % (Auto) 1.0 Baso % (Auto) 0.7 Neut # (Auto) 9.9 H Lymph # (Auto) 1.7 [place] # (Auto) 0.9 Eos # (Auto) 0.1 Baso # (Auto) 0.1 WBC Differential . Differential Comment Auto diff final Sodium 140 Potassium 3.9 Chloride 104 Carbon Dioxide 26.7 Anion Gap 9 BUN 16 Creatinine 0.94 Estimated GFR 77 L Random Glucose 100 Hemoglobin A1c 4.9 Calcium 8.5 Phosphorus 2.4 L Magnesium 2.1 Total Bilirubin 0.9 AST 41 H ALT 28 Alkaline Phosphatase 87 Total Protein 6.8 Albumin 2.5 L Medications: Active Medications Generic Name Dose Route Start Last Admin Trade Name Freq PRN Reason Stop Dose Admin Acetaminophen 650 mg 04/30/18 10:29 05/03/18 21:56 Tylenol PO 650 mg Q4H PRN Administration Temp > 100.4 Al Hydroxide/Mg Hydroxide 30 ml 04/30/18 10:29 05/06/18 08:33 Milk Of Magnesia Liq PO 30 ml Q12H PRN Administration Mild Constipation Bisacodyl 10 mg 04/30/18 10:29 05/08/18 04:22 Dulcolax Supp RECTAL 10 mg DAILY PRN Administration SEVERE CONSITIPATION Enalaprilat 1.25 mg 05/02/18 10:59 05/03/18 08:48 Vasotec Inj IV.PUSH 1.25 mg Q6H PRN Administration SBP > 160 Finasteride 5 mg 05/02/18 15:45 05/10/18 08:58 Proscar PO 5 mg DAILY [facility] Administration Piperacillin/Tazobactam/Dextrose 50 mls @ 100 mls/hr 05/03/18 12:00 05/10/18 05:58 Zosyn 3.375 Gm Premix IV.SIG 100 mls/hr Q6H [facility] Administration Lactulose 30 ml 04/30/18 10:29 05/08/18 01:41 Lactulose Liq PO 30 ml DAILY PRN Administration SEVERE CONSITIPATION Morphine Sulfate 2 mg 05/05/18 12:36 05/10/18 06:44 Morphine Inj IV.PUSH 2 mg Q4H PRN Administration breakthrough pain Ondansetron HCl 4 mg 04/30/18 10:29 05/01/18 08:01 Zofran Inj IV.PUSH 4 mg Q6H PRN Administration NAUSEA OR VOMITING Senna/Docusate Sodium 1 tab 04/30/18 21:00 05/10/18 08:59 Kaya-Colace PO Not Given BID [facility] Sennosides 17.2 mg 04/30/18 10:29 05/07/18 17:29 Senokot PO 17.2 mg Q12H PRN Administration Moderate Constipation Tamsulosin HCl 0.4 mg 05/01/18 09:00 05/10/18 08:58 Flomax PO 0.4 mg DAILY [facility] Administration Temazepam 15 mg 04/30/18 10:29 05/08/18 23:37 Restoril PO 15 mg HS PRN Administration INSOMNIA Objective Remarks: GENERAL: Elderly male patient, lying in bed. In no acute distress. SKIN: Warm and dry. HEAD: Normocephalic. EYES: No scleral icterus. No injection or drainage. NECK: Supple, trachea midline. CARDIOVASCULAR: Regular rate and rhythm without murmurs. RESPIRATORY: Anterior breath sounds clear, equal bilaterally. No accessory muscle use. GASTROINTESTINAL: Abdomen soft, non-tender, nondistended. Posterior bilateral nephrostomy drains in place and draining. EXTREMITIES: No cyanosis, or edema. MUSCULOSKELETAL: Adequate muscle tone. NEUROLOGICAL: No obvious focal deficit. Awake, alert, and oriented x3. PSYCHIATRIC: Normal mood; insight and judgment normal. Assessment/Plan (1) Prostate mass Code(s): N42.9 - Disorder of prostate, unspecified Status: Acute (2) Acute renal failure (ARF) Code(s): N17.9 - Acute kidney failure, unspecified Status: Acute (3) Ureter obstruction Code(s): N13.5 - Crossing vessel and stricture of ureter without hydronephrosis Status: Acute (4) Leukocytosis Code(s): D72.829 - Elevated white blood cell count, unspecified Status: Acute - Plan This is a 83-year-old male who has presented to the emergency room with urinary obstruction. He was in acute renal failure. He has a large pelvic mass which was causing bladder outlet obstruction. This mass is vigorous with the prostate and extending the patient has undergone bilateral nephrostomy tube placements with improvement in his and his creatinine. Patient was found to have a sclerotic T8 lesion. He also has bilateral pelvic lymphadenopathy and a PSA of 9.3. 1. Ileum biopsy remains pending. I have called pathology and they report they expect this to be resulted either later today or tomorrow. 2. I had a long discussion with the patient. I have attempted to explain to him that if the biopsy is positive for prostate carcinoma the treatment would be chemotherapy. I have also called the son to update him. The patient remains quite adamant that he will have procedure done by urology prior to him leaving the hospital. The patient's son is realistic and is hoping to have biopsy results with a plan prior to his father leaving the hospital. 3. Continue supportive care. - Attending Statement The exam, history, and the medical decision-making described in the above note were completed with the assistance of the mid-level provider. I reviewed and agree with the findings presented. I attest that I had a [id number] encounter with the patient on the same day, and personally performed and documented my assessment and findings in the medical record. Bone biopsy pending large pelvic mass causing urinary obstruction has nephrostomy tubes in place explained to the patient that treatment recommendations will be based on the diagnosis if the bone biopsy is non-diagnostic, then we will need a biopsy of the pelvic mass. will need urology's assistance patient understood the plan continue pain control/supportive care (2) Acute renal failure (ARF) Qualifiers: Acute renal failure type: unspecified Qualified Code(s): N17.9 - Acute kidney failure, unspecified
--- NOTE | 2018-05-10 12:22 | P.PNIM ---
Subjective Interval history: Follow-up acute renal failure secondary to obstructive uropathy from prostate cancer. 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 Patient is status post bilateral nephrostomy tube placement Says he had a bowel movement yesterday feels much better. No pain at this time. No fever or chills. Nephrostomy tubes in place with clear urine minimal lux output BUT APPEARS DARK 05-08 NO NEW ISSUES PT AND OT MAY NEED SNF 05-09 [place] NEED SNF AT [place] ST[place] HAS BL NEPHROSTOMY TUBES AND LUX [facility] RN AND PATIENT AND CASE MANAGEMENT AND FAMILY NEEDS PATHOLOGY BACK 05-10 PATHOLOGY IS STILL PENDING [facility] RN AND PT STILL HAS BL NEPHROSTOMY TUBES AND LUX WILL NEED SNF AT [place] AM LABS Physical Exam Vital signs: Vital Signs 05/09/18 12:20 05/09/18 16:45 05/09/18 20:01 Temperature 97.6 F 99.4 F Pulse Rate 84 90 74 Respiratory Rate 16 16 Blood Pressure 138/86 121/75 Pulse Oximetry 97 95 05/09/18 20:33 05/09/18 22:01 05/10/18 00:05 Temperature 98.3 F Pulse Rate 84 93 H 76 Respiratory Rate 18 Blood Pressure 136/73 Pulse Oximetry 95 05/10/18 00:29 05/10/18 01:34 05/10/18 04:00 Temperature 98.2 F 98.1 F Pulse Rate 83 88 70 Respiratory Rate 16 17 Blood Pressure 119/72 137/76 Pulse Oximetry 95 95 05/10/18 04:08 05/10/18 06:00 05/10/18 08:55 Temperature 97.9 F Pulse Rate 88 70 74 Respiratory Rate 16 Blood Pressure 127/73 Pulse Oximetry 95 Intake & Output 05/09/18 05/10/18 05/10/18 18:59 06:59 18:59 Intake Total 580 / 580 105 / 105 Output Total 875 / 875 350 / 350 Balance -295 / -295 -245 / -245 Weight 65.7 kg Intake: IV 100 / 100 105 / 105 Zosyn 3.375 GM Premix 50 ML @ 100 / 100 105 / 105 100 mls/hr IV.SIG Q6H [facility] Rx#: [id number] Oral 480 / 480 Output: Urine Amount (Stoma) 875 / 875 350 / 350 Nephrostomy Tube Left 475 / 475 200 / 200 Nephrostomy Tube Right 400 / 400 150 / 150 Other: Date of Last Bowel Movement 05/09/18 05/09/18 05/09/18 Narrative: GENERAL: Cachectic chronically ill-appearing but awake alert and oriented talkative and cooperative SKIN: Warm and dry. HEAD: Atraumatic. Normocephalic. EYES: Pupils equal and round. No scleral icterus. No injection or drainage. ENT: No nasal bleeding or discharge. Mucous membranes pink and moist. NECK: Trachea midline. No JVD. CARDIOVASCULAR: Regular rate and rhythm. RESPIRATORY: No accessory muscle use. Clear to auscultation. Breath sounds equal bilaterally. GASTROINTESTINAL: Abdomen soft, non-tender, nondistended. Hepatic and splenic margins not palpable. Bilateral nephrostomy tubes in place with good urine output as well as Lux catheter in place with the quite dark output MUSCULOSKELETAL: Extremities without clubbing, cyanosis, or edema. No obvious deformities. NEUROLOGICAL: Awake and alert. No obvious cranial nerve deficits. Motor grossly within normal limits. 4 out of 5 muscle strength in the arms and legs. Normal speech. PSYCHIATRIC: Appropriate mood and affect; insight and judgment normal. - Urinary Catheter Management Indwelling Urethral Catheter Cath placed during this visit: yes Reason for continuing: Acute urinary retention Insertion date: 04/30/18 Insertion time: 08:28 Results - Labs CBC & Chem 7: 05/10/18 06:35 05/10/18 06:35 Laboratory Results - last 24 hr 05/09/18 05/10/18 05/10/18 05:50 06:35 06:35 WBC 12.7 H RBC 4.32 L Hgb 13.2 Hct 39.7 MCV 91.8 MCH 30.5 MCHC 33.2 RDW 13.1 Plt Count 391 MPV 7.0 Neut % (Auto) 77.7 H Lymph % (Auto) 13.5 [place] % (Auto) 7.1 Eos % (Auto) 1.0 Baso % (Auto) 0.7 Neut # (Auto) 9.9 H Lymph # (Auto) 1.7 [place] # (Auto) 0.9 Eos # (Auto) 0.1 Baso # (Auto) 0.1 WBC Differential . Differential Comment Auto diff final Sodium 140 Potassium 3.9 Chloride 104 Carbon Dioxide 26.7 Anion Gap 9 BUN 16 Creatinine 0.94 Estimated GFR 77 L Random Glucose 100 Hemoglobin A1c 4.9 Calcium 8.5 Phosphorus 2.4 L Magnesium 2.1 Total Bilirubin 0.9 AST 41 H ALT 28 Alkaline Phosphatase 87 Total Protein 6.8 Albumin 2.5 L - Imaging Abdomen/Bladder Ultrasound 04/30/18 00:00 CONCLUSION: 1. Bilateral hydronephrosis. 2. Wall thickening of the urinary bladder. 3. Please refer to CT abdomen/pelvis for further details of the pelvic mass, not well seen sonographically. Chest X-Ray 04/30/18 00:00 CONCLUSION: Right basilar density could be atelectasis or infiltrate. Nephrostomy 04/30/18 00:00 CONCLUSION: 1. Uncomplicated bilateral nephrostomy tubes placed as above. Abdomen/Pelvis CT 04/30/18 10:10 CONCLUSION: 1. Large mass in the pelvis contiguous with the prostate gland. Prostate carcinoma is suspected. Correlation with PSA levels. 2. Extensive bilateral pelvic lymphadenopathy. 3. Sclerotic focus in T8 likely metastatic. 4. Bilateral hydronephrosis and hydroureter, likely obstruction caused by pelvic mass. Bone Scan Nuclear Medicine 05/03/18 00:00 CONCLUSION: 1. 3 small focal areas of intense abnormal uptake characteristic of metastatic disease. One of these corresponds to the sclerotic lesion seen on CT involving the T8 vertebra. Thoracic Spine CT 05/03/18 00:00 CONCLUSION: Sclerosis of the T8 vertebral body as described above. Malignancy is not excluded. This would be accessible to percutaneous biopsy. Bone Biopsy CT 05/04/18 00:00 CONCLUSION: 1. Uncomplicated CT-guided 11 gauge core biopsy of the focal sclerotic lesion within the right iliac bone. Pelvis MRI 05/05/18 00:00 CONCLUSION: 1. - Procedures BL NEPHROSTOMY TUBES AND BIOPSY Assessment and Plan - Assessment (1) Acute renal failure (ARF) Code(s): N17.9 - Acute kidney failure, unspecified Status: Acute (2) Hyperkalemia Code(s): E87.5 - Hyperkalemia Status: Acute (3) Hyponatremia Code(s): E87.1 - Hypo-osmolality and hyponatremia Status: Acute (4) Leukocytosis Code(s): D72.829 - Elevated white blood cell count, unspecified Status: Acute (5) Prostate mass Code(s): N42.9 - Disorder of prostate, unspecified Status: Acute (6) Ureter obstruction Code(s): N13.5 - Crossing vessel and stricture of ureter without hydronephrosis Status: Acute - Plan 83 years old male Acute renal failure secondary to Obstructive uropathy likely from prostate cancer S/P bilateral nephrostomy tube placement 04/30 stage IV- bone scan with metastasis T8 - renal functions are improved -CT scan showed a rather large mass 9.4 x 7.4 cm in the pelvis contiguous with the prostate gland with bilateral hydronephrosis and hydroureter with obstruction caused by pelvic mass. There were sclerotic focus in T8 which could be metastatic. Extensive bilateral pelvic lymphadenopathy -Ultrasound was performed which did show bilateral hydronephrosis, wall thickening of the urinary bladder -There is no urinary output despite replacement of Lux, CT review was performed and Lux is in place, however bladder seems rather decompressed and small. It appears that the mass has surrounded the bladder possible obstructing the ureters. -Urology was consulted --- keep bilateral nephrostomy and Lux till ff up with them as OP -Nephrology ff- reanl function improved significantly with nephrostomy tubes = Oncology ff = Appreciate securities consultant assistance. Continue to monitor. Nephrology, urology following. - plan for T8 disc biopsy SP BL NEPHROSTOMY TUBES AND LUX CATHETER IN PLACE Suspected sepsis UTI -Tachypnea, leukocytosis, suspected UTI. -= Nephrology and urology are following. Continue with bilateral nephrostomy tubes. Due to leukocytosis and tachypnea, I have ordered urinalysis, a bilateral nephrostomy tubes. on broad-spectrum antibiotics. Follow-up cultures - negative so far .. Lactate down Hypertension- overall better With systolic blood pressures up to the 180s today. We will order Vasotec as needed for hypertension. Electrolyte abnormalities- resolved - Hyperkalemia- corrected Severe constipation: laxatives / stool softeners DVT prevention -Sequential compression devices, avoid chemical prophylaxis at this time secondary to likely further procedures Case management consult for home health care services/needs PT consult- patient going home with bilateral nephrostomy and lux- Per hem/onc awaiting biopsy results prior to be DC Discussed with patient, nurse WILL NEED SNF AT [place] AWAIT PATHOLOGY Code Status: FULL CODE Discussed Condition With: RN AND PT AND CM Discharge Planning: WILL NEED SNF AT [place] AWAIT PATHOLOGY (1) Acute renal failure (ARF) Qualifiers: Acute renal failure type: unspecified Qualified Code(s): N17.9 - Acute kidney failure, unspecified
[2018-05-11] MEDS: Morphine Inj 4 MG/ML Vial IV.PUSH PRN ×3 (02:56→21:10)
[2018-05-11] MEDS: Piperacil/Tazo 3.375 GM Premix 50 ML IV.SIG SCH ×4 (05:44→23:29)
[2018-05-11] MEDS: Finasteride 5 MG Tablet PO SCH (09:07)
[2018-05-11] MEDS: Senna/Docusate Sodium 8.6/50 MG Tablet PO SCH ×2 (09:07→21:10)
--- NOTE | 2018-05-11 11:33 | P.PNONC ---
Subjective Interval history: Afebrile Patient remains pain-free Hoping to speak with urology Happy to hear that he will remain inpatient until he has tissue diagnosis Objective Vital Signs/Intake & Output: Vital Signs 05/10/18 11:45 05/10/18 16:50 05/10/18 19:00 Temperature 98.0 F 97.8 F 98 F Pulse Rate 77 79 74 Respiratory Rate 16 16 16 Blood Pressure 129/69 152/88 H 138/76 Pulse Oximetry 97 95 98 05/10/18 20:06 05/10/18 22:15 05/10/18 22:57 Temperature 98.2 F Pulse Rate 74 60 76 Respiratory Rate 16 Blood Pressure 134/75 Pulse Oximetry 97 05/11/18 02:06 05/11/18 02:59 05/11/18 03:30 Temperature 98.3 F Pulse Rate 54 L 76 Respiratory Rate 16 16 Blood Pressure 127/67 Pulse Oximetry 96 05/11/18 04:03 05/11/18 07:00 05/11/18 08:00 Temperature 98.7 F Pulse Rate 67 65 69 Respiratory Rate 16 Blood Pressure 149/83 H Pulse Oximetry 94 L 05/11/18 10:00 Temperature Pulse Rate 66 Respiratory Rate Blood Pressure Pulse Oximetry Intake & Output 05/10/18 05/11/18 05/11/18 18:59 06:59 18:59 Intake Total 50 / 50 105 / 105 Output Total 375 / 375 500 / 500 Balance -325 / -325 -395 / -395 Weight 141 lb 12.116 oz Intake: IV 50 / 50 105 / 105 Zosyn 3.375 GM Premix 50 ML @ 50 / 50 105 / 105 100 mls/hr IV.SIG Q6H [facility] Rx#: [id number] Output: Urine Amount (Stoma) 375 / 375 500 / 500 Nephrostomy Tube Left 200 / 200 300 / 300 Nephrostomy Tube Right 175 / 175 200 / 200 Other: Date of Last Bowel Movement 05/09/18 05/09/18 05/09/18 Result Diagrams: 05/10/18 06:35 05/10/18 06:35 Medications: Active Medications Generic Name Dose Route Start Last Admin Trade Name Freq PRN Reason Stop Dose Admin Acetaminophen 650 mg 04/30/18 10:29 05/03/18 21:56 Tylenol PO 650 mg Q4H PRN Administration Temp > 100.4 Al Hydroxide/Mg Hydroxide 30 ml 04/30/18 10:29 05/06/18 08:33 Milk Of Magnesia Liq PO 30 ml Q12H PRN Administration Mild Constipation Bisacodyl 10 mg 04/30/18 10:29 05/08/18 04:22 Dulcolax Supp RECTAL 10 mg DAILY PRN Administration SEVERE CONSITIPATION Enalaprilat 1.25 mg 05/02/18 10:59 05/03/18 08:48 Vasotec Inj IV.PUSH 1.25 mg Q6H PRN Administration SBP > 160 Finasteride 5 mg 05/02/18 15:45 05/11/18 09:07 Proscar PO 5 mg DAILY [facility] Administration Piperacillin/Tazobactam/Dextrose 50 mls @ 100 mls/hr 05/03/18 12:00 05/11/18 05:44 Zosyn 3.375 Gm Premix IV.SIG 100 mls/hr Q6H [facility] Administration Lactulose 30 ml 04/30/18 10:29 05/08/18 01:41 Lactulose Liq PO 30 ml DAILY PRN Administration SEVERE CONSITIPATION Morphine Sulfate 2 mg 05/05/18 12:36 05/11/18 09:06 Morphine Inj IV.PUSH 2 mg Q4H PRN Administration breakthrough pain Ondansetron HCl 4 mg 04/30/18 10:29 05/01/18 08:01 Zofran Inj IV.PUSH 4 mg Q6H PRN Administration NAUSEA OR VOMITING Senna/Docusate Sodium 1 tab 04/30/18 21:00 05/11/18 09:07 Kaya-Colace PO 1 tab BID K[facility]STAL Administration Sennosides 17.2 mg 04/30/18 10:29 05/07/18 17:29 Senokot PO 17.2 mg Q12H PRN Administration Moderate Constipation Tamsulosin HCl 0.4 mg 05/01/18 09:00 05/11/18 09:07 Flomax PO 0.4 mg DAILY K[facility]STAL Administration Temazepam 15 mg 04/30/18 10:29 05/08/18 23:37 Restoril PO 15 mg HS PRN Administration INSOMNIA Objective Remarks: GENERAL: Elderly male patient, lying in bed. In no acute distress. SKIN: Warm and dry. HEAD: Normocephalic. EYES: No scleral icterus. No injection or drainage. NECK: Supple, trachea midline. CARDIOVASCULAR: Regular rate and rhythm without murmurs. RESPIRATORY: Anterior breath sounds clear, equal bilaterally. No accessory muscle use. GASTROINTESTINAL: Abdomen soft, non-tender, nondistended. Posterior bilateral nephrostomy drains in place and draining. EXTREMITIES: No cyanosis, or edema. MUSCULOSKELETAL: Adequate muscle tone. NEUROLOGICAL: No obvious focal deficit. Awake, alert, and oriented x3. PSYCHIATRIC: Normal mood; insight and judgment normal. Assessment/Plan (1) Prostate mass Code(s): N42.9 - Disorder of prostate, unspecified Status: Acute (2) Acute renal failure (ARF) Code(s): N17.9 - Acute kidney failure, unspecified Status: Acute (3) Ureter obstruction Code(s): N13.5 - Crossing vessel and stricture of ureter without hydronephrosis Status: Acute (4) Leukocytosis Code(s): D72.829 - Elevated white blood cell count, unspecified Status: Acute - Plan This is a 83-year-old male who has presented to the emergency room with urinary obstruction. He was in acute renal failure. He has a large pelvic mass which was causing bladder outlet obstruction. This mass is vigorous with the prostate and extending the patient has undergone bilateral nephrostomy tube placements with improvement in his and his creatinine. Patient was found to have a sclerotic T8 lesion. He also has bilateral pelvic lymphadenopathy and a PSA of 9.3. 1. Ileum biopsy remains pending. I have placed a nursing order to call and ask for urology to come back and see the patient. It is likely that the tissue sample will come back nondiagnostic. 2. Continue supportive care 3. Await path results. (2) Acute renal failure (ARF) Qualifiers: Acute renal failure type: unspecified Qualified Code(s): N17.9 - Acute kidney failure, unspecified
--- NOTE | 2018-05-11 12:21 | P.PNIM ---
Subjective Interval history: Follow-up acute renal failure secondary to obstructive uropathy from prostate cancer. 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 Patient is status post bilateral nephrostomy tube placement Says he had a bowel movement yesterday feels much better. No pain at this time. No fever or chills. Nephrostomy tubes in place with clear urine minimal lux output BUT APPEARS DARK 05-08 NO NEW ISSUES PT AND OT MAY NEED SNF 05-09 [facility] NEED [facility] STILL HAS BL NEPHROSTOMY TUBES AND LUX [facility] RN AND PATIENT AND CASE MANAGEMENT AND FAMILY NEEDS PATHOLOGY BACK 05-10 PATHOLOGY IS STILL PENDING CASSIDY RN AND PT STILL HAS BL NEPHROSTOMY TUBES AND LUX WILL NEED SNF AT [facility] AM LABS 05-11 STILL AWAIT PATHOLOGY MAY NEED MORE TISSUE IF NO RESULTS ON THIS BIOPSY DW RN AND CM AND ONCOLOGY AND PT Physical Exam Vital signs: Vital Signs 05/10/18 16:50 05/10/18 19:00 05/10/18 20:06 Temperature 97.8 F 98 F Pulse Rate 79 74 74 Respiratory Rate 16 16 Blood Pressure 152/88 H 138/76 Pulse Oximetry 95 98 05/10/18 22:15 05/10/18 22:57 05/11/18 02:06 Temperature 98.2 F Pulse Rate 60 76 54 L Respiratory Rate 16 Blood Pressure 134/75 Pulse Oximetry 97 05/11/18 02:59 05/11/18 03:30 05/11/18 04:03 Temperature 98.3 F Pulse Rate 76 67 Respiratory Rate 16 16 Blood Pressure 127/67 Pulse Oximetry 96 05/11/18 07:00 05/11/18 08:00 05/11/18 10:00 Temperature 98.7 F Pulse Rate 65 69 66 Respiratory Rate 16 Blood Pressure 149/83 H Pulse Oximetry 94 L Intake & Output 05/10/18 05/11/18 05/11/18 18:59 06:59 18:59 Intake Total 50 / 50 105 / 105 Output Total 375 / 375 500 / 500 Balance -325 / -325 -395 / -395 Weight 64.3 kg Intake: IV 50 / 50 105 / 105 Zosyn 3.375 GM Premix 50 ML @ 50 / 50 105 / 105 100 mls/hr IV.SIG Q6H [facility] Rx#: [id number] Output: Urine Amount (Stoma) 375 / 375 500 / 500 Nephrostomy Tube Left 200 / 200 300 / 300 Nephrostomy Tube Right 175 / 175 200 / 200 Other: Date of Last Bowel Movement 05/09/18 05/09/18 05/09/18 Narrative: GENERAL: Cachectic chronically ill-appearing but awake alert and oriented talkative and cooperative SKIN: Warm and dry. HEAD: Atraumatic. Normocephalic. EYES: Pupils equal and round. No scleral icterus. No injection or drainage. ENT: No nasal bleeding or discharge. Mucous membranes pink and moist. NECK: Trachea midline. No JVD. CARDIOVASCULAR: Regular rate and rhythm. RESPIRATORY: No accessory muscle use. Clear to auscultation. Breath sounds equal bilaterally. GASTROINTESTINAL: Abdomen soft, non-tender, nondistended. Hepatic and splenic margins not palpable. Bilateral nephrostomy tubes in place with good urine output as well as Lux catheter in place with the quite dark output MUSCULOSKELETAL: Extremities without clubbing, cyanosis, or edema. No obvious deformities. NEUROLOGICAL: Awake and alert. No obvious cranial nerve deficits. Motor grossly within normal limits. 4 out of 5 muscle strength in the arms and legs. Normal speech. PSYCHIATRIC: Appropriate mood and affect; insight and judgment normal. - Urinary Catheter Management Indwelling Urethral Catheter Cath placed during this visit: yes Reason for continuing: Acute urinary retention Insertion date: 04/30/18 Insertion time: 08:28 Results - Labs CBC & Chem 7: 05/10/18 06:35 05/10/18 06:35 - Procedures BL NEPHROSTOMY TUBES AND BIOPSY Assessment and Plan - Assessment (1) Acute renal failure (ARF) Code(s): N17.9 - Acute kidney failure, unspecified Status: Acute (2) Hyperkalemia Code(s): E87.5 - Hyperkalemia Status: Acute (3) Hyponatremia Code(s): E87.1 - Hypo-osmolality and hyponatremia Status: Acute (4) Leukocytosis Code(s): D72.829 - Elevated white blood cell count, unspecified Status: Acute (5) Prostate mass Code(s): N42.9 - Disorder of prostate, unspecified Status: Acute (6) Ureter obstruction Code(s): N13.5 - Crossing vessel and stricture of ureter without hydronephrosis Status: Acute - Plan 83 years old male Acute renal failure secondary to Obstructive uropathy likely from prostate cancer S/P bilateral nephrostomy tube placement 04/30 stage IV- bone scan with metastasis T8 - renal functions are improved -CT scan showed a rather large mass 9.4 x 7.4 cm in the pelvis contiguous with the prostate gland with bilateral hydronephrosis and hydroureter with obstruction caused by pelvic mass. There were sclerotic focus in T8 which could be metastatic. Extensive bilateral pelvic lymphadenopathy -Ultrasound was performed which did show bilateral hydronephrosis, wall thickening of the urinary bladder -There is no urinary output despite replacement of Lux, CT review was performed and Lux is in place, however bladder seems rather decompressed and small. It appears that the mass has surrounded the bladder possible obstructing the ureters. -Urology was consulted --- keep bilateral nephrostomy and Lux till ff up with them as OP -Nephrology ff- reanl function improved significantly with nephrostomy tubes = Oncology ff = Appreciate [employer] consultant assistance. Continue to monitor. Nephrology, urology following. - plan for T8 disc biopsy SP BL NEPHROSTOMY TUBES AND LUX CATHETER IN PLACE Suspected sepsis UTI -Tachypnea, leukocytosis, suspected UTI. -= Nephrology and urology are following. Continue with bilateral nephrostomy tubes. Due to leukocytosis and tachypnea, I have ordered urinalysis, a bilateral nephrostomy tubes. on broad-spectrum antibiotics. Follow-up cultures - negative so far .. Lactate down Hypertension- overall better With systolic blood pressures up to the 180s today. We will order Vasotec as needed for hypertension. Electrolyte abnormalities- resolved - Hyperkalemia- corrected Severe constipation: laxatives / stool softeners DVT prevention -Sequential compression devices, avoid chemical prophylaxis at this time secondary to likely further procedures Case management consult for home health care services/needs PT consult- patient going home with bilateral nephrostomy and lux- Per hem/onc awaiting biopsy results prior to be DC Discussed with patient, nurse WILL NEED SN[facility] AWAIT PATHOLOGY Code Status: FULL CODE Discussed Condition With: RN AND PT AND CM AND ONCOLOGY Discharge Planning: WILL NEED SNF [facility] AWAIT PATHOLOGY (1) Acute renal failure (ARF) Qualifiers: Acute renal failure type: unspecified Qualified Code(s): N17.9 - Acute kidney failure, unspecified
--- NOTE | 2018-05-11 13:45 | P.PNURO ---
Subjective Patient symptoms today: Pt was seen at the bedside. no f/c/n/v, no hematuria. Both PCNs and Lux cath are draining well. Lux output is minimal. He has abd pain but mostly related to constipation. No other c/o. His T spine lesion biopsy results are not back yet. Objective Vital Signs: Vital Signs 05/10/18 16:50 05/10/18 19:00 05/10/18 20:06 Temperature 97.8 F 98 F Pulse Rate 79 74 74 Respiratory Rate 16 16 Blood Pressure 152/88 H 138/76 Pulse Oximetry 95 98 05/10/18 22:15 05/10/18 22:57 05/11/18 02:06 Temperature 98.2 F Pulse Rate 60 76 54 L Respiratory Rate 16 Blood Pressure 134/75 Pulse Oximetry 97 05/11/18 02:59 05/11/18 03:30 05/11/18 04:03 Temperature 98.3 F Pulse Rate 76 67 Respiratory Rate 16 16 Blood Pressure 127/67 Pulse Oximetry 96 05/11/18 07:00 05/11/18 08:00 05/11/18 10:00 Temperature 98.7 F Pulse Rate 65 69 66 Respiratory Rate 16 Blood Pressure 149/83 H Pulse Oximetry 94 L Intake & Output 05/10/18 05/11/18 05/11/18 18:59 06:59 18:59 Intake Total 50 / 50 155 / 155 Output Total 375 / 375 500 / 500 Balance -325 / -325 -345 / -345 Weight 64.3 kg Intake: IV 50 / 50 155 / 155 Zosyn 3.375 GM Premix 50 ML @ 50 / 50 155 / 155 100 mls/hr IV.SIG Q6H [facility] Rx#: [id number] Output: Urine Amount (Stoma) 375 / 375 500 / 500 Nephrostomy Tube Left 200 / 200 300 / 300 Nephrostomy Tube Right 175 / 175 200 / 200 Other: Date of Last Bowel Movement 05/09/18 05/09/18 05/09/18 Result Diagrams: 05/10/18 06:35 05/10/18 06:35 Medications and IVs: Active Medications Generic Name Dose Route Start Last Admin Trade Name Freq PRN Reason Stop Dose Admin Acetaminophen 650 mg 04/30/18 10:29 05/03/18 21:56 Tylenol PO 650 mg Q4H PRN Administration Temp > 100.4 Al Hydroxide/Mg Hydroxide 30 ml 04/30/18 10:29 05/06/18 08:33 Milk Of Magnesia Liq PO 30 ml Q12H PRN Administration Mild Constipation Bisacodyl 10 mg 04/30/18 10:29 05/08/18 04:22 Dulcolax Supp RECTAL 10 mg DAILY PRN Administration SEVERE CONSITIPATION Enalaprilat 1.25 mg 05/02/18 10:59 05/03/18 08:48 Vasotec Inj IV.PUSH 1.25 mg Q6H PRN Administration SBP > 160 Finasteride 5 mg 05/02/18 15:45 05/11/18 09:07 Proscar PO 5 mg DAILY [facility] Administration Piperacillin/Tazobactam/Dextrose 50 mls @ 100 mls/hr 05/03/18 12:00 05/11/18 12:26 Zosyn 3.375 Gm Premix IV.SIG 100 mls/hr Q6H [facility] Administration Lactulose 30 ml 04/30/18 10:29 05/08/18 01:41 Lactulose Liq PO 30 ml DAILY PRN Administration SEVERE CONSITIPATION Morphine Sulfate 2 mg 05/05/18 12:36 05/11/18 09:06 Morphine Inj IV.PUSH 2 mg Q4H PRN Administration breakthrough pain Ondansetron HCl 4 mg 04/30/18 10:29 05/01/18 08:01 Zofran Inj IV.PUSH 4 mg Q6H PRN Administration NAUSEA OR VOMITING Senna/Docusate Sodium 1 tab 04/30/18 21:00 05/11/18 09:07 Kaya-Colace PO 1 tab BID [facility] Administration Sennosides 17.2 mg 04/30/18 10:29 05/07/18 17:29 Senokot PO 17.2 mg Q12H PRN Administration Moderate Constipation Sodium Biphosphate/Sodium Phosphate 118 ml 05/06/18 15:24 Fleets Enema (Adult) RECTAL UNSCH PRN intractable constipation Tamsulosin HCl 0.4 mg 05/01/18 09:00 05/11/18 09:07 Flomax PO 0.4 mg DAILY [facility] Administration Temazepam 15 mg 04/30/18 10:29 05/08/18 23:37 Restoril PO 15 mg HS PRN Administration INSOMNIA Objective Remarks: NAD RRR Clear lungs Lux and B/l PCNs are in place Assessment and Plan - Plan -All questions pt had were answered to his satisfaction - All further urological management will depend on results of bone biopsy -Patient may followup in urology clinic as an outpt to review results and treatment plan - Manage constipation well. -Maintain lux catheter and bilateral nephrostomy tubes until urology followup. May need VNS service at home Discussed Condition With: Pt's RN and Dr Colby CARNES attending
[2018-05-12] MEDS: Morphine Inj 4 MG/ML Vial IV.PUSH PRN ×3 (01:05→20:38)
[2018-05-12] MEDS ORDERED: HYDROmorphone PF Inj 2 MG/ML Vial IV.PUSH ONE (02:12)
[2018-05-12] MEDS: Piperacil/Tazo 3.375 GM Premix 50 ML IV.SIG SCH ×3 (05:39→18:00)
[2018-05-12 05:56] LABS: Baso # (Auto) 0.1 th/mm3 (0.0-0.2); Baso % (Auto) 0.8 % (0.0-2.0); Eos # (Auto) 0.2 th/mm3 (0.0-0.4); Eos % (Auto) 1.6 % (0.0-4.0); Hemoglobin 12.2 gm/dL (13.0-17.0); Lymph # (Auto) 1.4 th/mm3 (1.0-4.8); Lymph % (Auto) 11.4 % (9.0-44.0); Mean Corpuscular Hemoglobin 30.6 pg (27.0-34.0); Mean Corpuscular Volume 92.8 fL (80.0-100.0); Mean Platelet Volume 7.4 fL (7.0-11.0); Mono # (Auto) 0.8 th/mm3 (0.0-0.9); Mono % (Auto) 6.6 % (0.0-8.0); Neut # (Auto) 10.1 th/mm3 (1.8-7.7); Neut % (Auto) 79.6 % (16.0-70.0); Platelet Count 359 th/mm3 (150-450); Red Blood Count 3.99 mil/mm3 (4.50-5.90); Red Cell Distribution Width 13.4 % (11.6-17.2); White Blood Count 12.6 th/mm3 (4.0-11.0)
[2018-05-12 06:16] LABS: Albumin 2.4 g/dL (3.4-5.0); Anion Gap 6 meq/L (5-15); Aspartate Aminotransferase 43 U/L (15-37); Blood Urea Nitrogen 20 mg/dL (7-18); Calcium 7.9 mg/dL (8.5-10.1); Carbon Dioxide 30.1 meq/L (21.0-32.0); Chloride 106 meq/L (98-107); Glomerular Filtration Rate 76 mL/min (>89); Glucose,Random 96 mg/dL (74-106); Magnesium 2.4 mg/dL (1.5-2.5); Potassium 4.3 meq/L (3.5-5.1); Sodium 142 meq/L (136-145)
[2018-05-12 06:20] LABS: Alanine Aminotransferase 28 U/L (12-78); Alkaline Phosphatase 81 U/L (45-117); Phosphorus 2.8 mg/dL (2.5-4.9); Total Protein 6.3 g/dL (6.4-8.2)
--- NOTE | 2018-05-12 09:09 | P.PNONC ---
Subjective Interval history: Afebrile. Patient resting comfortably in bed, watching television. He has no new complaints at this time. He reports that his right has been sufficient. Objective Vital Signs/Intake & Output: Vital Signs 05/11/18 10:00 05/11/18 11:00 05/11/18 11:10 Temperature 98.3 F Pulse Rate 66 72 69 Respiratory Rate 16 Blood Pressure 127/76 Pulse Oximetry 96 05/11/18 15:10 05/11/18 17:29 05/11/18 20:00 Temperature 98.8 F 98.7 F Pulse Rate 70 74 70 Respiratory Rate 16 17 Blood Pressure 134/74 141/74 H Pulse Oximetry 97 98 05/12/18 00:00 05/12/18 03:00 05/12/18 04:00 Temperature 98 F 97.6 F Pulse Rate 87 67 74 Respiratory Rate 16 17 Blood Pressure 136/75 135/74 Pulse Oximetry 96 96 Intake & Output 05/11/18 05/12/18 05/12/18 18:59 06:59 18:59 Intake Total 50 / 50 150 / 150 Output Total 220 / 220 677 / 677 Balance -170 / -170 -527 / -527 Weight 64.3 kg Intake: IV 50 / 50 150 / 150 Zosyn 3.375 GM Premix 50 ML @ 50 / 50 150 / 150 100 mls/hr IV.SIG Q6H [facility] Rx#: [id number] Output: Stool 2 / 2 Urine Amount (Catheter) 75 / 75 Indwelling Urethral Catheter 75 / 75 Urine Amount (Stoma) 220 / 220 600 / 600 Nephrostomy Tube Left 120 / 120 300 / 300 Nephrostomy Tube Right 100 / 100 300 / 300 Other: Date of Last Bowel Movement 05/09/18 05/11/18 Result Diagrams: 05/12/18 04:35 05/12/18 04:35 Laboratory Results: Laboratory Results - last 24 hr 05/12/18 05/12/18 04:35 04:35 WBC 12.6 H RBC 3.99 L Hgb 12.2 L Hct 37.0 L MCV 92.8 MCH 30.6 MCHC 33.0 RDW 13.4 Plt Count 359 MPV 7.4 Neut % (Auto) 79.6 H Lymph % (Auto) 11.4 [place] % (Auto) 6.6 Eos % (Auto) 1.6 Baso % (Auto) 0.8 Neut # (Auto) 10.1 H Lymph # (Auto) 1.4 [place] # (Auto) 0.8 Eos # (Auto) 0.2 Baso # (Auto) 0.1 WBC Differential . Differential Comment Auto diff final Sodium 142 Potassium 4.3 Chloride 106 Carbon Dioxide 30.1 Anion Gap 6 BUN 20 H Creatinine 0.95 Estimated GFR 76 L Random Glucose 96 Calcium 7.9 L Phosphorus 2.8 Magnesium 2.4 Total Bilirubin 0.5 AST 43 H ALT 28 Alkaline Phosphatase 81 Total Protein 6.3 L Albumin 2.4 L Medications: Active Medications Generic Name Dose Route Start Last Admin Trade Name Freq PRN Reason Stop Dose Admin Acetaminophen 650 mg 04/30/18 10:29 05/03/18 21:56 Tylenol PO 650 mg Q4H PRN Administration Temp > 100.4 Al Hydroxide/Mg Hydroxide 30 ml 04/30/18 10:29 05/11/18 15:52 Milk Of Magnesia Liq PO 30 ml Q12H PRN Administration Mild Constipation Bisacodyl 10 mg 04/30/18 10:29 05/08/18 04:22 Dulcolax Supp RECTAL 10 mg DAILY PRN Administration SEVERE CONSITIPATION Enalaprilat 1.25 mg 05/02/18 10:59 05/03/18 08:48 Vasotec Inj IV.PUSH 1.25 mg Q6H PRN Administration SBP > 160 Finasteride 5 mg 05/02/18 15:45 05/11/18 09:07 Proscar PO 5 mg DAILY [facility] Administration Piperacillin/Tazobactam/Dextrose 50 mls @ 100 mls/hr 05/03/18 12:00 05/12/18 06:10 Zosyn 3.375 Gm Premix IV.SIG Infused Q6H [facility] Infusion Lactulose 30 ml 04/30/18 10:29 05/08/18 01:41 Lactulose Liq PO 30 ml DAILY PRN Administration SEVERE CONSITIPATION Morphine Sulfate 2 mg 05/05/18 12:36 05/12/18 01:05 Morphine Inj IV.PUSH 2 mg Q4H PRN Administration breakthrough pain Ondansetron HCl 4 mg 04/30/18 10:29 05/01/18 08:01 Zofran Inj IV.PUSH 4 mg Q6H PRN Administration NAUSEA OR VOMITING Senna/Docusate Sodium 1 tab 04/30/18 21:00 05/11/18 21:10 Kaya-Colace PO 1 tab BID [facility] Administration Sennosides 17.2 mg 04/30/18 10:29 05/07/18 17:29 Senokot PO 17.2 mg Q12H PRN Administration Moderate Constipation Tamsulosin HCl 0.4 mg 05/01/18 09:00 05/11/18 09:07 Flomax PO 0.4 mg DAILY [facility] Administration Temazepam 15 mg 04/30/18 10:29 05/08/18 23:37 Restoril PO 15 mg HS PRN Administration INSOMNIA Objective Remarks: GENERAL: Elderly male patient, lying in bed. In no acute distress. SKIN: Warm and dry. HEAD: Normocephalic. EYES: No scleral icterus. No injection or drainage. NECK: Supple, trachea midline. CARDIOVASCULAR: Regular rate and rhythm without murmurs. RESPIRATORY: Anterior breath sounds clear, equal bilaterally. No accessory muscle use. GASTROINTESTINAL: Abdomen soft, non-tender, nondistended. Posterior bilateral nephrostomy drains in place and draining. EXTREMITIES: No cyanosis, or edema. MUSCULOSKELETAL: Adequate muscle tone. NEUROLOGICAL: No obvious focal deficit. Awake, alert, and oriented x3. PSYCHIATRIC: Normal mood; insight and judgment normal. Assessment/Plan (1) Prostate mass Code(s): N42.9 - Disorder of prostate, unspecified Status: Acute (2) Acute renal failure (ARF) Code(s): N17.9 - Acute kidney failure, unspecified Status: Acute (3) Ureter obstruction Code(s): N13.5 - Crossing vessel and stricture of ureter without hydronephrosis Status: Acute (4) Leukocytosis Code(s): D72.829 - Elevated white blood cell count, unspecified Status: Acute - Plan This is a 83-year-old male who has presented to the emergency room with urinary obstruction. He was in acute renal failure. He has a large pelvic mass which was causing bladder outlet obstruction. This mass is vigorous with the prostate and extending the patient has undergone bilateral nephrostomy tube placements with improvement in his and his creatinine. Patient was found to have a sclerotic T8 lesion. He also has bilateral pelvic lymphadenopathy and a PSA of 9.3. 1. Ileum biopsy remains pending. 2. Continue supportive care 3. Urology following. 3. Await path results. - Attending Statement The exam, history, and the medical decision-making described in the above note were completed with the assistance of the mid-level provider. I reviewed and agree with the findings presented. I attest that I had a [id number] encounter with the patient on the same day, and personally performed and documented my assessment and findings in the medical record. (2) Acute renal failure (ARF) Qualifiers: Acute renal failure type: unspecified Qualified Code(s): N17.9 - Acute kidney failure, unspecified
[2018-05-12] MEDS: Senna/Docusate Sodium 8.6/50 MG Tablet PO SCH ×2 (09:37→20:39)
[2018-05-12] MEDS: Finasteride 5 MG Tablet PO SCH (09:37)
--- NOTE | 2018-05-12 12:13 | P.PNIM ---
Subjective Interval history: Follow-up acute renal failure secondary to obstructive uropathy from prostate cancer. 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 Patient is status post bilateral nephrostomy tube placement Says he had a bowel movement yesterday feels much better. No pain at this time. No fever or chills. Nephrostomy tubes in place with clear urine minimal lux output BUT APPEARS DARK 05-08 NO NEW ISSUES PT AND OT MAY NEED SNF 05-09 [facility] NEED SNF [facility] STILL HAS BL NEPHROSTOMY TUBES AND LUX CASSIDY RN AND PATIENT AND CASE MANAGEMENT AND FAMILY NEEDS PATHOLOGY BACK 05-10 PATHOLOGY IS STILL PENDING CASSIDY RN AND PT STILL HAS BL NEPHROSTOMY TUBES AND LUX WILL NEED SNF AT [facility] AM LABS 8- STILL AWAIT PATHOLOGY MAY NEED MORE TISSUE IF NO RESULTS ON THIS BIOPSY DW RN AND CM AND ONCOLOGY AND PT 8-2 F/U OBSTRUCTIVE UROPATHY DUE TO PROSTATE CANCER STATES HE WILL NOT DO OUTPT PROSTATE BIOPSY- RESULTS STILL NOT AVAILABLE MIGHT NEED T-8 BIOPSY IF HE WANTS TISSUE WHILE HERE WILL CONSULT IR FOR T-8 BIOPSY Physical Exam Vital signs: Vital Signs 05/11/18 15:10 05/11/18 17:29 05/11/18 20:00 Temperature 98.8 F 98.7 F Pulse Rate 70 74 70 Respiratory Rate 16 17 Blood Pressure 134/74 141/74 H Pulse Oximetry 97 98 05/12/18 00:00 05/12/18 03:00 05/12/18 04:00 Temperature 98 F 97.6 F Pulse Rate 87 67 74 Respiratory Rate 16 17 Blood Pressure 136/75 135/74 Pulse Oximetry 96 96 Intake & Output 05/11/18 05/12/18 05/12/18 18:59 06:59 18:59 Intake Total 50 / 50 150 / 150 Output Total 220 / 220 677 / 677 Balance -170 / -170 -527 / -527 Weight 64.3 kg Intake: IV 50 / 50 150 / 150 Zosyn 3.375 GM Premix 50 ML @ 50 / 50 150 / 150 100 mls/hr IV.SIG Q6H K[facility]ST[facility] Rx#: [id number] Output: Stool 2 / 2 Urine Amount (Catheter) 75 / 75 Indwelling Urethral Catheter 75 / 75 Urine Amount (Stoma) 220 / 220 600 / 600 Nephrostomy Tube Left 120 / 120 300 / 300 Nephrostomy Tube Right 100 / 100 300 / 300 Other: Date of Last Bowel Movement 05/09/18 05/11/18 Narrative: GENERAL: Cachectic chronically ill-appearing but awake alert and oriented talkative and cooperative SKIN: Warm and dry. HEAD: Atraumatic. Normocephalic. EYES: Pupils equal and round. No scleral icterus. No injection or drainage. ENT: No nasal bleeding or discharge. Mucous membranes pink and moist. NECK: Trachea midline. No JVD. CARDIOVASCULAR: Regular rate and rhythm. RESPIRATORY: No accessory muscle use. Clear to auscultation. Breath sounds equal bilaterally. GASTROINTESTINAL: Abdomen soft, non-tender, nondistended. Hepatic and splenic margins not palpable. Bilateral nephrostomy tubes in place with good urine output as well as Lux catheter in place with the quite dark output MUSCULOSKELETAL: Extremities without clubbing, cyanosis, or edema. No obvious deformities. NEUROLOGICAL: Awake and alert. No obvious cranial nerve deficits. Motor grossly within normal limits. 4 out of 5 muscle strength in the arms and legs. Normal speech. PSYCHIATRIC: Appropriate mood and affect; insight and judgment normal. - Urinary Catheter Management Indwelling Urethral Catheter Cath placed during this visit: yes Reason for continuing: Acute urinary retention Insertion date: 04/30/18 Insertion time: 08:28 Results - Labs CBC & Chem 7: 05/12/18 04:35 05/12/18 04:35 Laboratory Results - last 24 hr 05/12/18 05/12/18 04:35 04:35 WBC 12.6 H RBC 3.99 L Hgb 12.2 L Hct 37.0 L MCV 92.8 MCH 30.6 MCHC 33.0 RDW 13.4 Plt Count 359 MPV 7.4 Neut % (Auto) 79.6 H Lymph % (Auto) 11.4 [place] % (Auto) 6.6 Eos % (Auto) 1.6 Baso % (Auto) 0.8 Neut # (Auto) 10.1 H Lymph # (Auto) 1.4 [place] # (Auto) 0.8 Eos # (Auto) 0.2 Baso # (Auto) 0.1 WBC Differential . Differential Comment Auto diff final Sodium 142 Potassium 4.3 Chloride 106 Carbon Dioxide 30.1 Anion Gap 6 BUN 20 H Creatinine 0.95 Estimated GFR 76 L Random Glucose 96 Calcium 7.9 L Phosphorus 2.8 Magnesium 2.4 Total Bilirubin 0.5 AST 43 H ALT 28 Alkaline Phosphatase 81 Total Protein 6.3 L Albumin 2.4 L - Procedures BL NEPHROSTOMY TUBES AND BIOPSY Assessment and Plan - Assessment (1) Acute renal failure (ARF) Code(s): N17.9 - Acute kidney failure, unspecified Status: Acute (2) Hyperkalemia Code(s): E87.5 - Hyperkalemia Status: Acute (3) Hyponatremia Code(s): E87.1 - Hypo-osmolality and hyponatremia Status: Acute (4) Leukocytosis Code(s): D72.829 - Elevated white blood cell count, unspecified Status: Acute (5) Prostate mass Code(s): N42.9 - Disorder of prostate, unspecified Status: Acute (6) Ureter obstruction Code(s): N13.5 - Crossing vessel and stricture of ureter without hydronephrosis Status: Acute - Plan 83 years old male Acute renal failure secondary to Obstructive uropathy likely from prostate cancer S/P bilateral nephrostomy tube placement 04/30 stage IV- bone scan with metastasis T8 - renal functions are improved -CT scan showed a rather large mass 9.4 x 7.4 cm in the pelvis contiguous with the prostate gland with bilateral hydronephrosis and hydroureter with obstruction caused by pelvic mass. There were sclerotic focus in T8 which could be metastatic. Extensive bilateral pelvic lymphadenopathy -Ultrasound was performed which did show bilateral hydronephrosis, wall thickening of the urinary bladder -There is no urinary output despite replacement of Lux, CT review was performed and Lux is in place, however bladder seems rather decompressed and small. It appears that the mass has surrounded the bladder possible obstructing the ureters. -Urology was consulted --- keep bilateral nephrostomy and Lux till ff up with them as OP -Nephrology ff- reanl function improved significantly with nephrostomy tubes = Oncology ff = Appreciate learning consultant assistance. Continue to monitor. Nephrology, urology following. - plan for T8 disc biopsy SP BL NEPHROSTOMY TUBES AND LUX CATHETER IN PLACE Suspected sepsis UTI -Tachypnea, leukocytosis, suspected UTI. -= Nephrology and urology are following. Continue with bilateral nephrostomy tubes. Due to leukocytosis and tachypnea, I have ordered urinalysis, a bilateral nephrostomy tubes. on broad-spectrum antibiotics. Follow-up cultures - negative so far .. Lactate down Hypertension- overall better With systolic blood pressures up to the 180s today. We will order Vasotec as needed for hypertension. Electrolyte abnormalities- resolved - Hyperkalemia- corrected Severe constipation: laxatives / stool softeners DVT prevention -Sequential compression devices, avoid chemical prophylaxis at this time secondary to likely further procedures Case management consult for home health care services/needs PT consult- patient going home with bilateral nephrostomy and lux- Per hem/onc awaiting biopsy results prior to be DC Discussed with patient, nurse WILL NEED SNF AT [facility] AWAIT PATHOLOGY Code Status: FULL CODE Discussed Condition With: RN AND PT AND CM Discharge Planning: WILL NEED SNF AT [facility] AWAIT PATHOLOGY (1) Acute renal failure (ARF) Qualifiers: Acute renal failure type: unspecified Qualified Code(s): N17.9 - Acute kidney failure, unspecified
--- NOTE | 2018-05-12 15:33 | P.CONPAL ---
Consult Service: Palliative Care Requesting Physician: Antony Gaxiola Reason for Consult: a. To assist with evaluation and management of symptoms including: Pain b. To assist medical decision maker(s) with: better understanding of current medical conditions; weighing benefits/burdens of medical treatment options; making medical treatment decisions. Primary Care Provider: Apolinar Murrell History of Present Illness History of Present Illness: This 83-year-old male, with a past history of hyperlipidemia, has been having symptoms of bladder outlet obstruction for quite some time. It worsened over the past couple months, and he has been to another hospital emergency department 2 or 3 times, and also to his urologist. The patient reports that he was scheduled for cystoscopy (but was admitted here prior to having it done) , and he says that he does not know of any PSA tests being done in the past 11 years. The patient had a Anderson catheter placed and removed 3 times in the 6 weeks prior to this hospitalization, and presented to the emergency department here on 04/30/18 with increasing pain and saying that he was not producing urine. He notes that he has had weight loss of a few pounds. In the emergency department, findings included: * Alert, moderate pain * Temp 98.5, pulse 66, respirations 24, blood pressure 162/78, oxygen saturation 96% * White count 16.8, hemoglobin 13.2 * Sodium 126, creatinine 8.2 * Ultrasound revealed bilateral hydronephrosis and thickening of the bladder wall * CT of the abdomen/pelvis reported a large 9 x 7 cm mass arising from the bladder or prostate, extensive pelvic lymphadenopathy, a lesion in T8 consistent with metastatic disease, and bilateral hydronephrosis. The patient was admitted, and bilateral nephrostomy tubes were placed. By the following day his creatinine had improved to 4, and it has normalized since then. The patient was seen by oncology on 05/02/18 and was felt to have stage IV disease. Blood and urine cultures returned negative on that date. A bone scan on 05/03/18 revealed 3 lesions consistent with metastatic disease, the one previously described on CT scan in T8, and also lesions in the right ilium and left ischium. The creatinine on this date was 0.76, and a PSA now returned 9.3. Biopsy of the right iliac lesion was undertaken on 05/04/18, and the results are not yet reported out. (I telephoned pathology, and they reported that the pathologist would call me tomorrow with an update.) The patient reports that he has spoken with oncology about possible chemotherapy , and he likely will want to pursue that treatment wants a specific diagnosis is reported. The patient's back, flank, and lower abdominal/pelvic pain has been fairly well controlled, as he has received 2 mg doses of morphine 3 or 4 times per day while he is here. At the time I am seeing him, he says his pain is fairly mild. Palliative Care was consulted to assist with symptom management, and to enter into discussions with the patient regarding his current illnesses, the prognosis , and the benefits and burdens of the various treatment choices. Function/Cognitive Trajectory: The patient was functioning completely independently prior to this hospitalization. Review of Systems Constitutional: Reports weight loss Eyes: Denies change in vision, Denies irritation Ears, Nose, Mouth, and Throat: Denies abnormal hearing, Denies mouth pain, Denies neck pain Cardiovascular: Denies chest pain, Denies shortness of breath, Denies shortness of breath with activity Respiratory: Denies cough, Denies pain on inspiration, Denies shortness of breath with activity Gastrointestinal: Reports abdominal pain, Reports constipation, Denies incontinent of stools, Denies vomiting blood Genitourinary: Reports difficulty urinating, Reports side pain, Reports urinary hesitancy, Denies blood in urine Musculoskeletal: Reports back pain, Denies abnormal walking, Denies muscle weakness Skin/Breast: Denies bleeding lesions, Denies unusual bruising Neurologic: Denies abnormal hearing, Denies numbness, Denies convulsions, Denies seizure-like activity Psychiatric: Denies depression, Denies panic attacks Endocrine: Denies increased hunger, Denies increased thirst Hematologic/Lymphatic: Denies easy bleeding Allergic/Immunologic: Denies hives PMFSH - History History Provided By: Patient - Medical History Medical History: Medical History (Last Reviewed 05/09/18 @ 07:48 by Jorge Lentz PT) BPH with obstruction/lower urinary tract symptoms Hyperlipidemia No significant past surgical history - Family History Family History: Family History (Last Updated 05/12/18 @ 15:19 by Nanda Bailey MD) Brother [id number] deficiency Colon cancer Sister Pancreatic cancer Other No significant family history - Tobacco History Second Hand Smoke Exposure: No Tobacco Use In Past 30 Days: No Smoking Status: Former smoker Tobacco Type: Cigarettes - Alcohol History How Often Do You Have a Drink Containing Alcohol: Monthly or less - Substance Use History Substance History: No History of Abuse - Immunization History Tetanus Immunization: Unsure Hx Influenza Vaccine This Season: No Medications and Allergies Active Medications: Active Medications Acetaminophen (Tylenol) 650 mg PO Q4H PRN PRN Reason: Temp > 100.4 Last Admin: 05/03/18 21:56 Dose: 650 mg Al Hydroxide/Mg Hydroxide (Milk Of Magnesia Liq) 30 ml PO Q12H PRN PRN Reason: Mild Constipation Last Admin: 05/11/18 15:52 Dose: 30 ml Bisacodyl (Dulcolax Supp) 10 mg RECTAL DAILY PRN PRN Reason: SEVERE CONSITIPATION Last Admin: 05/08/18 04:22 Dose: 10 mg Enalaprilat (Vasotec Inj) 1.25 mg IV.PUSH Q6H PRN PRN Reason: SBP > 160 Last Admin: 05/03/18 08:48 Dose: 1.25 mg Finasteride (Proscar) 5 mg PO DAILY [facility] Last Admin: 05/12/18 09:37 Dose: 5 mg Piperacillin/Tazobactam/Dextrose (Zosyn 3.375 Gm Premix) 50 mls @ 100 mls/hr IV.SIG Q6H [facility] Last Infusion: 05/12/18 06:10 Dose: Infused Lactulose (Lactulose Liq) 30 ml PO DAILY PRN PRN Reason: SEVERE CONSITIPATION Last Admin: 05/08/18 01:41 Dose: 30 ml Morphine Sulfate (Morphine Inj) 2 mg IV.PUSH Q4H PRN PRN Reason: breakthrough pain Last Admin: 05/12/18 13:29 Dose: 2 mg Ondansetron HCl (Zofran Inj) 4 mg IV.PUSH Q6H PRN PRN Reason: NAUSEA OR VOMITING Last Admin: 05/01/18 08:01 Dose: 4 mg Senna/Docusate Sodium (Kaya-Colace) 1 tab PO BID [facility] Last Admin: 05/12/18 09:37 Dose: 1 tab Sennosides (Senokot) 17.2 mg PO Q12H PRN PRN Reason: Moderate Constipation Last Admin: 05/12/18 09:37 Dose: 17.2 mg Sodium Biphosphate/Sodium Phosphate (Fleets Enema (Adult)) 118 ml RECTAL UNSCH PRN PRN Reason: intractable constipation Tamsulosin HCl (Flomax) 0.4 mg PO DAILY [facility] Last Admin: 05/12/18 09:41 Dose: 0.4 mg Temazepam (Restoril) 15 mg PO HS PRN PRN Reason: INSOMNIA Last Admin: 05/08/18 23:37 Dose: 15 mg Allergies Allergy/AdvReac Type Severity Reaction Status Date / Time No Known Allergies Unknown Uncoded 03/31/18 20:53 Home Medications Medication Instructions Recorded Confirmed Type atorvastatin 40 mg PO DAILY 04/30/18 04/30/18 History tamsulosin [Flomax] 0.4 mg PO DAILY 04/30/18 04/30/18 History Advance Directives Living Will: Yes Healthcare Surrogate: Yes Power of Stretch Press Operator: Yes (None of the paperwork is present here at the hospital) Today's verbally stated goals: The patient is looking forward to learning the results of the biopsy, and then making a decision about treatment with the oncologist. Family/friends goals: The patient's brother supports the patient's wishes. Ethical and Legal Issues: There are no ethical issues that would impact his care were decision-making at this time. The patient has capacity for decision-making; he tells me that his is his designated HCS. Physical Exam Vital Signs: Vital Signs - 24 hr 05/11/18 15:10 05/11/18 17:29 05/11/18 20:00 Temperature 98.8 F 98.7 F Pulse Rate 70 74 70 Respiratory Rate 16 17 Blood Pressure 134/74 141/74 H Pulse Oximetry 97 98 05/12/18 00:00 05/12/18 03:00 05/12/18 04:00 Temperature 98 F 97.6 F Pulse Rate 87 67 74 Respiratory Rate 16 17 Blood Pressure 136/75 135/74 Pulse Oximetry 96 96 I&O: Intake & Output 05/10/18 05/11/18 05/12/18 05/13/18 06:59 06:59 06:59 06:59 Intake Total 685 / 685 205 / 205 200 / 200 Output Total 1225 / 1225 875 / 875 897 / 897 Balance -540 / -540 -670 / -670 -697 / -697 Weight 65.7 kg 64.3 kg 64.3 kg Physical Exam: CONSTITUTIONAL/GENERAL: This is an adequately nourished patient, in no apparent distress. TUBES/LINES/DRAINS: Bilateral nephrostomies, IV access, Anderson SKIN: No jaundice, rashes, or lesions. Ecchymoses on upper extremities. No wounds seen anteriorly. Skin temperature appropriate. Not diaphoretic. HEAD: Atraumatic. Normocephalic. EYES: Pupils equal and round and reactive. Extraocular motions intact. No scleral icterus. No injection or drainage. Fundi not examined. ENT: Hearing grossly normal. Nose without bleeding or purulent drainage. Throat without visible erythema, exudates, masses, or lesions. NECK: Trachea midline. Supple, nontender. No palpable thyroid enlargement or nodularity. CARDIOVASCULAR: Regular rate and rhythm without murmurs, gallops, or rubs. No JVD. Peripheral pulses symmetric. RESPIRATORY/CHEST: Symmetric, unlabored respirations. Clear to auscultation. Breath sounds equal bilaterally. No wheezes, rales, or rhonchi. GASTROINTESTINAL: Abdomen soft, non-tender, nondistended. There is a firm suprapubic mass rising to a level of about a 16 week uterus.. No guarding. Bowel sounds present. GENITOURINARY: Pelvic mass noted. Anderson catheter in place. MUSCULOSKELETAL: Extremities without clubbing, cyanosis, or edema. No joint tenderness or effusion noted. No calf tenderness. No mottling or clubbing. LYMPHATICS: No palpable cervical or supraclavicular adenopathy. NEUROLOGICAL: Awake and alert. Motor and sensory grossly within normal limits. Follows commands. Cognitively sharp. Moves all extremities. PSYCHIATRIC: No obvious anxiety/depression. no apparent hallucinations or other psychotic thought process. Diagnostic Tests Laboratory: Laboratory Results - last 72 hr 05/09/18 05/10/18 05/10/18 05:50 06:35 06:35 WBC 12.7 H RBC 4.32 L Hgb 13.2 Hct 39.7 MCV 91.8 MCH 30.5 MCHC 33.2 RDW 13.1 Plt Count 391 MPV 7.0 Neut % (Auto) 77.7 H Lymph % (Auto) 13.5 [place] % (Auto) 7.1 Eos % (Auto) 1.0 Baso % (Auto) 0.7 Neut # (Auto) 9.9 H Lymph # (Auto) 1.7 [place] # (Auto) 0.9 Eos # (Auto) 0.1 Baso # (Auto) 0.1 WBC Differential . Differential Comment Auto diff final Sodium 140 Potassium 3.9 Chloride 104 Carbon Dioxide 26.7 Anion Gap 9 BUN 16 Creatinine 0.94 Estimated GFR 77 L Random Glucose 100 Hemoglobin A1c 4.9 Calcium 8.5 Phosphorus 2.4 L Magnesium 2.1 Total Bilirubin 0.9 AST 41 H ALT 28 Alkaline Phosphatase 87 Total Protein 6.8 Albumin 2.5 L 05/12/18 05/12/18 04:35 04:35 WBC 12.6 H RBC 3.99 L Hgb 12.2 L Hct 37.0 L MCV 92.8 MCH 30.6 MCHC 33.0 RDW 13.4 Plt Count 359 MPV 7.4 Neut % (Auto) 79.6 H Lymph % (Auto) 11.4 [place] % (Auto) 6.6 Eos % (Auto) 1.6 Baso % (Auto) 0.8 Neut # (Auto) 10.1 H Lymph # (Auto) 1.4 [place] # (Auto) 0.8 Eos # (Auto) 0.2 Baso # (Auto) 0.1 WBC Differential . Differential Comment Auto diff final Sodium 142 Potassium 4.3 Chloride 106 Carbon Dioxide 30.1 Anion Gap 6 BUN 20 H Creatinine 0.95 Estimated GFR 76 L Random Glucose 96 Hemoglobin A1c Calcium 7.9 L Phosphorus 2.8 Magnesium 2.4 Total Bilirubin 0.5 AST 43 H ALT 28 Alkaline Phosphatase 81 Total Protein 6.3 L Albumin 2.4 L Result Diagrams: 05/12/18 04:35 05/12/18 04:35 Imaging: Abdomen/Bladder Ultrasound 04/30/18 00:00 CONCLUSION: 1. Bilateral hydronephrosis. 2. Wall thickening of the urinary bladder. 3. Please refer to CT abdomen/pelvis for further details of the pelvic mass, not well seen sonographically. Chest X-Ray 04/30/18 00:00 CONCLUSION: Right basilar density could be atelectasis or infiltrate. Abdomen/Pelvis CT 04/30/18 10:10 CONCLUSION: 1. Large mass in the pelvis contiguous with the prostate gland. Prostate carcinoma is suspected. Correlation with PSA levels. 2. Extensive bilateral pelvic lymphadenopathy. 3. Sclerotic focus in T8 likely metastatic. 4. Bilateral hydronephrosis and hydroureter, likely obstruction caused by pelvic mass. Bone Scan Nuclear Medicine 05/03/18 00:00 CONCLUSION: 1. 3 small focal areas of intense abnormal uptake characteristic of metastatic disease. One of these corresponds to the sclerotic lesion seen on CT involving the T8 vertebra. Thoracic Spine CT 05/03/18 00:00 CONCLUSION: Sclerosis of the T8 vertebral body as described above. Malignancy is not excluded. This would be accessible to percutaneous biopsy. Bone Biopsy CT 05/04/18 00:00 CONCLUSION: 1. Uncomplicated CT-guided 11 gauge core biopsy of the focal sclerotic lesion within the right iliac bone. Pelvis MRI 05/05/18 00:00 CONCLUSION: 1. Procedures: Bilateral nephrostomy tube placement 04/30/18 Biopsy right iliac bone 05/04/18 Patient/Family Conference Present at Family Conference: Patient, his brother Jordan, and me Family Conference Time: 40 Family Conference Location: Bedside Issues Discussed: * Palliative care role, purpose, approach * Additional medical, psychosocial, and spiritual history * Patients general health, functional status, and cognitive changes in the months leading up to the current hospitalization * Patient/family understanding of the current medical problems * Patient/family understanding of prognosis * Patients goals of care as best understood from advance directives and/or conversations and/or values * Current medical treatment options and benefits/burdens of those options * Likely scenarios comparing ongoing aggressive care with a transition to comfort measures only * Questions answered to the best of my ability * Palliative care contact information provided Assessment and Plan Pertinent Non-Medical Issues: Psychosocial: Originally from the [facility] area, began coming to [place] 31 years ago, and has been a permanent resident for several years. Lives with . 59 years, and has 2 daughters and one son. 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 Spiritual: Druze background, unaffiliated with any jewish or clergy recently , does not desire a flatbed driver visit. Legal: The patient has capacity for decision-making; he tells me that his is his designated HCS. Ethical issues impacting care: None Important Contacts: : Yaquelin Tang Home: Prognosis: Ultimately, the patient has stage IV malignancy that may not be curable, but prognosis depends on cell type and available chemotherapeutic treatment protocols. Code Status: Full Code Plan: * FULL CODE, per patient on 05/12/18 * DECISION-MAKING: The patient has capacity for decision-making; he tells me that his is his designated HCS. * GOALS: The patient wants to continue aggressive care, and he is looking forward to learning what type of cancer he has and what type of treatment options are available. He does recognize that he has stage IV disease and that this may not ultimately be curable. * SYMPTOMS: The patient's pain was improved with the nephrostomy tubes, and now is being managed with as needed morphine. I have no further medication recommendations at this time. * I did telephone pathology (day #8 post biopsy), and they reported that the pathologist involved in this case will call with an update in the a.m. * Palliative Care will follow the patient intermittently during this hospitalization, and we will be available in the future as the patient's situation changes or other needs arise. Time Spent Total Floor Time (mins): 79 Face to Face Time (mins): 49 >50% Time in Counseling or Coordination of Care: Yes Appreciation Thank you for the opportunity to participate in the care of Aroldo Tang.
[2018-05-12] MEDS: Temazepam 15 MG Capsule PO PRN (20:39)
[2018-05-13] MEDS: Piperacil/Tazo 3.375 GM Premix 50 ML IV.SIG SCH ×5 (00:23→23:49)
[2018-05-13] MEDS: Morphine Inj 4 MG/ML Vial IV.PUSH PRN ×4 (04:48→23:47)
[2018-05-13] MEDS: Finasteride 5 MG Tablet PO SCH (08:34)
[2018-05-13] MEDS: Senna/Docusate Sodium 8.6/50 MG Tablet PO SCH ×2 (08:34→20:43)
--- NOTE | 2018-05-13 10:31 | P.PNPAL ---
Reason for Visit Reason for visit: a. To assist with evaluation and management of symptoms including: Pain b. To assist medical decision maker(s) with: better understanding of current medical conditions; weighing benefits/burdens of medical treatment options; making medical treatment decisions. Subjective Subjective/Interval History: INTERVAL NOTE: I received a call from pathologist Dr. Jackson this morning, reporting that the biopsy was consistent with a prostate cancer primary. The patient continues to have lower abdominal and flank pain intermittently, and he has been receiving 2 mg doses of parenteral morphine 4-6 times per day. Renal function remains normal, and the nephrostomies continued to drain clear/ sukhwinder urine. Very little drains via the Anderson. Advance Directives Significant change in goals:: The patient wants to talk with oncology about the possible treatments, and is hoping to initiate those soon. Objective Vital Signs: Vital Signs 05/12/18 11:00 05/12/18 15:00 05/12/18 19:00 Temperature 98.0 F 98.0 F 98.2 F Pulse Rate 81 74 82 Respiratory Rate 18 20 Blood Pressure 148/84 H 155/93 H Pulse Oximetry 98 98 05/12/18 20:00 05/12/18 20:30 05/12/18 21:00 Temperature Pulse Rate 72 70 Respiratory Rate 20 Blood Pressure Pulse Oximetry 05/12/18 22:00 05/12/18 23:00 05/13/18 00:00 Temperature 98.3 F Pulse Rate 74 60 57 L Respiratory Rate 20 Blood Pressure 146/67 H Pulse Oximetry 96 05/13/18 01:00 05/13/18 02:00 05/13/18 03:00 Temperature 98.1 F Pulse Rate 59 L 60 68 Respiratory Rate 20 Blood Pressure 147/74 H Pulse Oximetry 96 05/13/18 04:00 05/13/18 05:00 05/13/18 08:00 Temperature 98.4 F Pulse Rate 71 68 60 Respiratory Rate 16 Blood Pressure 144/74 H Pulse Oximetry 95 05/13/18 08:49 Temperature Pulse Rate 72 Respiratory Rate Blood Pressure Pulse Oximetry Intake & Output 05/12/18 05/13/18 05/13/18 18:59 06:59 18:59 Intake Total 480 / 480 400 / 400 Output Total 800 / 800 Balance 480 / 480 -400 / -400 Weight 64.2 kg Intake: IV 100 / 100 Zosyn 3.375 GM Premix 50 ML @ 100 / 100 100 mls/hr IV.SIG Q6H [facility] Rx#: [id number] Oral 480 / 480 300 / 300 Output: Stool 0 / 0 Emesis 0 / 0 Urine Amount (Catheter) Indwelling Urethral Catheter Urine Amount (Stoma) 775 / 775 Nephrostomy Tube Left 300 / 300 Nephrostomy Tube Right 475 / 475 Other: Date of Last Bowel Movement 05/11/18 05/11/18 # Bowel Movements 0 Physical Exam: CONSTITUTIONAL/GENERAL: This is an adequately nourished patient, in no apparent distress. CARDIOVASCULAR: Regular rate and rhythm without murmurs, gallops, or rubs. No JVD. Peripheral pulses symmetric. RESPIRATORY/CHEST: Symmetric, unlabored respirations. Clear to auscultation. Breath sounds equal bilaterally. No wheezes, rales, or rhonchi. GASTROINTESTINAL: Abdomen soft, non-tender, nondistended. There is a firm suprapubic mass rising to a level of about a 16 [id number].. No guarding. Bowel sounds present. GENITOURINARY: Pelvic mass noted above symphysis pubis. Anderson catheter in place. MUSCULOSKELETAL: Extremities without clubbing, cyanosis, or edema. No joint tenderness or effusion noted. No calf tenderness. No mottling or clubbing. NEUROLOGICAL: Awake and alert. Motor and sensory grossly within normal limits. Follows commands. Cognitively sharp. Moves all extremities. PSYCHIATRIC: No obvious anxiety/depression. no apparent hallucinations or other psychotic thought process. Diagnostic Tests Laboratory: Laboratory Results - last 72 hr 05/12/18 05/12/18 04:35 04:35 WBC 12.6 H RBC 3.99 L Hgb 12.2 L Hct 37.0 L MCV 92.8 MCH 30.6 MCHC 33.0 RDW 13.4 Plt Count 359 MPV 7.4 Neut % (Auto) 79.6 H Lymph % (Auto) 11.4 [place] % (Auto) 6.6 Eos % (Auto) 1.6 Baso % (Auto) 0.8 Neut # (Auto) 10.1 H Lymph # (Auto) 1.4 [place] # (Auto) 0.8 Eos # (Auto) 0.2 Baso # (Auto) 0.1 WBC Differential . Differential Comment Auto diff final Sodium 142 Potassium 4.3 Chloride 106 Carbon Dioxide 30.1 Anion Gap 6 BUN 20 H Creatinine 0.95 Estimated GFR 76 L Random Glucose 96 Calcium 7.9 L Phosphorus 2.8 Magnesium 2.4 Total Bilirubin 0.5 AST 43 H ALT 28 Alkaline Phosphatase 81 Total Protein 6.3 L Albumin 2.4 L Result Diagrams: 05/12/18 04:35 05/12/18 04:35 Procedures: Bilateral nephrostomy tube placement 04/30/18 Biopsy right iliac bone 05/04/18 Assessment and Plan Pertinent Non-Medical Issues: Psychosocial: Originally from the [facility], began coming to [place] 31 years ago, and has been a permanent resident for several years. Lives with . 59 years, and has 2 daughters and one son. 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 Spiritual: Sikh background, unaffiliated with any presybeterian or clergy recently , does not desire a internal revenue agent visit. Legal: The patient has capacity for decision-making; he tells me that his is his designated HCS. Ethical issues impacting care: None Important Contacts: : Yaquelin Tang Home: Prognosis: Ultimately, the patient has stage IV malignancy that is not likely to be curable , and eventually he will be a candidate for hospice services. Code Status: Full Code Plan: * FULL CODE, per patient on 05/12/18 * DECISION-MAKING: The patient has capacity for decision-making; he tells me that his is his designated HCS. * I spoke with pathologist Dr. Jackson this morning, he told me the biopsy is consistent with a prostate cancer primary. * GOALS: The patient wants to continue aggressive care, and he is looking forward to starting treatment for the now-diagnosed metastatic prostate cancer. He does recognize that he has stage IV disease and that this is likely to not ultimately be curable, but he is hoping that the planned treatments will "slow it down where shrink it" so that he has substantial quality time left.... He wishes that the nephrostomy tubes would be able to come out at some point.. * SYMPTOMS: The patient's pain was improved with the nephrostomy tubes, and now is being managed with PRN IV morphine (10-12 mg per 24 hours). It seems likely that he will need to stay on some opiates, and he could be transitioned to something like ([id number]) MS Contin 15 mg BID now. * Palliative Care will follow the patient intermittently during this hospitalization, and we will be available in the future as the patient's situation changes or other needs arise. Time Spent Total Floor Time (mins): 38 Face to Face Time (mins): 22 >50% Time in Counseling or Coordination of Care: Yes (d/w Celina Alexis PA-C and w RN)
--- NOTE | 2018-05-13 12:44 | P.PNIM ---
Subjective Interval history: Follow-up acute renal failure secondary to obstructive uropathy from prostate cancer. 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 Patient is status post bilateral nephrostomy tube placement Says he had a bowel movement yesterday feels much better. No pain at this time. No fever or chills. Nephrostomy tubes in place with clear urine minimal lux output BUT APPEARS DARK 05-08 NO NEW ISSUES PT AND OT MAY NEED SNF 05-09 WILL NEED SNF AT [place] STILL HAS BL NEPHROSTOMY TUBES AND LUX CASSIDY RN AND PATIENT AND CASE MANAGEMENT AND FAMILY NEEDS PATHOLOGY BACK 05-10 PATHOLOGY IS STILL PENDING CASSIDY RN AND PT STILL HAS BL NEPHROSTOMY TUBES AND LUX WILL NEED SNF AT [place] AM LABS 8-1 STILL AWAIT PATHOLOGY MAY NEED MORE TISSUE IF NO RESULTS ON THIS BIOPSY DW RN AND CM AND ONCOLOGY AND PT 8-2 F/U OBSTRUCTIVE UROPATHY DUE TO PROSTATE CANCER STATES HE WILL NOT DO OUTPT PROSTATE BIOPSY- RESULTS STILL NOT AVAILABLE MIGHT NEED T-8 BIOPSY IF HE WANTS TISSUE WHILE HERE WILL CONSULT IR FOR T-8 BIOPSY 8-3 PATHOLOGY FINALLY CAME BACK FOR METASTATIC PROSTATE CANCER ON PATHOLOGY NO NEED FOR T-8 BIOPSY AWAIT ONCOLOGY INPUT WILL NEED TO [place] ON LUX AND NEPHROSTOMY TUBES DW RN AND PT AND ONCOLOGY AND CM Physical Exam Vital signs: Vital Signs 05/12/18 15:00 05/12/18 19:00 05/12/18 20:00 Temperature 98.0 F 98.2 F Pulse Rate 74 82 72 Respiratory Rate 20 Blood Pressure 148/84 H 155/93 H Pulse Oximetry 98 05/12/18 20:30 05/12/18 21:00 05/12/18 22:00 Temperature Pulse Rate 70 74 Respiratory Rate 20 Blood Pressure Pulse Oximetry 05/12/18 23:00 05/13/18 00:00 05/13/18 01:00 Temperature 98.3 F Pulse Rate 60 57 L 59 L Respiratory Rate 20 Blood Pressure 146/67 H Pulse Oximetry 96 05/13/18 02:00 05/13/18 03:00 05/13/18 04:00 Temperature 98.1 F Pulse Rate 60 68 71 Respiratory Rate 20 Blood Pressure 147/74 H Pulse Oximetry 96 05/13/18 05:00 05/13/18 08:00 05/13/18 08:49 Temperature 98.4 F Pulse Rate 68 60 72 Respiratory Rate 16 Blood Pressure 144/74 H Pulse Oximetry 95 05/13/18 10:27 05/13/18 12:00 Temperature 98.2 F Pulse Rate 69 Respiratory Rate 16 18 Blood Pressure 128/86 Pulse Oximetry 97 Intake & Output 05/12/18 05/13/18 05/13/18 18:59 06:59 18:59 Intake Total 480 / 480 400 / 400 50 / 50 Output Total 800 / 800 Balance 480 / 480 -400 / -400 50 / 50 Weight 64.2 kg Intake: IV 100 / 100 50 / 50 Zosyn 3.375 GM Premix 50 ML @ 100 / 100 50 / 50 100 mls/hr IV.SIG Q6H [facility] Rx#: [id number] Oral 480 / 480 300 / 300 Output: Stool 0 / 0 Emesis 0 / 0 Urine Amount (Catheter) 25 Indwelling Urethral Catheter 25 Urine Amount (Stoma) 775 / 775 Nephrostomy Tube Left 300 / 300 Nephrostomy Tube Right 475 / 475 Other: Date of Last Bowel Movement 05/11/18 05/11/18 # Bowel Movements 0 Narrative: GENERAL: Cachectic chronically ill-appearing but awake alert and oriented talkative and cooperative SKIN: Warm and dry. HEAD: Atraumatic. Normocephalic. EYES: Pupils equal and round. No scleral icterus. No injection or drainage. ENT: No nasal bleeding or discharge. Mucous membranes pink and moist. NECK: Trachea midline. No JVD. CARDIOVASCULAR: Regular rate and rhythm. RESPIRATORY: No accessory muscle use. Clear to auscultation. Breath sounds equal bilaterally. GASTROINTESTINAL: Abdomen soft, non-tender, nondistended. Hepatic and splenic margins not palpable. Bilateral nephrostomy tubes in place with good urine output as well as Lux catheter in place with the quite dark output MUSCULOSKELETAL: Extremities without clubbing, cyanosis, or edema. No obvious deformities. NEUROLOGICAL: Awake and alert. No obvious cranial nerve deficits. Motor grossly within normal limits. 4 out of 5 muscle strength in the arms and legs. Normal speech. PSYCHIATRIC: Appropriate mood and affect; insight and judgment normal. - Urinary Catheter Management Indwelling Urethral Catheter Cath placed during this visit: yes Reason for continuing: Acute urinary retention Insertion date: 04/30/18 Insertion time: 08:28 Results - Labs CBC & Chem 7: 05/12/18 04:35 05/12/18 04:35 Laboratory Results - last 72 hr 05/12/18 05/12/18 04:35 04:35 WBC 12.6 H RBC 3.99 L Hgb 12.2 L Hct 37.0 L MCV 92.8 MCH 30.6 MCHC 33.0 RDW 13.4 Plt Count 359 MPV 7.4 Neut % (Auto) 79.6 H Lymph % (Auto) 11.4 [place] % (Auto) 6.6 Eos % (Auto) 1.6 Baso % (Auto) 0.8 Neut # (Auto) 10.1 H Lymph # (Auto) 1.4 [place] # (Auto) 0.8 Eos # (Auto) 0.2 Baso # (Auto) 0.1 WBC Differential . Differential Comment Auto diff final Sodium 142 Potassium 4.3 Chloride 106 Carbon Dioxide 30.1 Anion Gap 6 BUN 20 H Creatinine 0.95 Estimated GFR 76 L Random Glucose 96 Calcium 7.9 L Phosphorus 2.8 Magnesium 2.4 Total Bilirubin 0.5 AST 43 H ALT 28 Alkaline Phosphatase 81 Total Protein 6.3 L Albumin 2.4 L - Procedures BL NEPHROSTOMY TUBES AND BIOPSY Assessment and Plan - Assessment (1) Acute renal failure (ARF) Code(s): N17.9 - Acute kidney failure, unspecified Status: Acute (2) Hyperkalemia Code(s): E87.5 - Hyperkalemia Status: Acute (3) Hyponatremia Code(s): E87.1 - Hypo-osmolality and hyponatremia Status: Acute (4) Leukocytosis Code(s): D72.829 - Elevated white blood cell count, unspecified Status: Acute (5) Prostate mass Code(s): N42.9 - Disorder of prostate, unspecified Status: Acute (6) Ureter obstruction Code(s): N13.5 - Crossing vessel and stricture of ureter without hydronephrosis Status: Acute - Plan 83 years old male Acute renal failure secondary to Obstructive uropathy likely from prostate cancer S/P bilateral nephrostomy tube placement 04/30 stage IV- bone scan with metastasis T8 - renal functions are improved METASTATIC PROSTATE CANCER WITH POSITIVE PATHOLOGY PROSTATE CANCER BEING THE PRIMARY -CT scan showed a rather large mass 9.4 x 7.4 cm in the pelvis contiguous with the prostate gland with bilateral hydronephrosis and hydroureter with obstruction caused by pelvic mass. There were sclerotic focus in T8 which could be metastatic. Extensive bilateral pelvic lymphadenopathy -Ultrasound was performed which did show bilateral hydronephrosis, wall thickening of the urinary bladder -There is no urinary output despite replacement of Lux, CT review was performed and Lux is in place, however bladder seems rather decompressed and small. It appears that the mass has surrounded the bladder possible obstructing the ureters. -Urology was consulted --- keep bilateral nephrostomy and Lux till ff up with them as OP -Nephrology ff- reanl function improved significantly with nephrostomy tubes = Oncology ff = Appreciate peoplesoft consultant assistance. Continue to monitor. Nephrology, urology following. SP BL NEPHROSTOMY TUBES AND LUX CATHETER IN PLACE Suspected sepsis UTI -Tachypnea, leukocytosis, suspected UTI. -= Nephrology and urology are following. Continue with bilateral nephrostomy tubes. Due to leukocytosis and tachypnea, I have ordered urinalysis, a bilateral nephrostomy tubes. on broad-spectrum antibiotics. Follow-up cultures - negative so far .. Lactate down Hypertension- overall better With systolic blood pressures up to the 180s today. We will order Vasotec as needed for hypertension. Electrolyte abnormalities- resolved - Hyperkalemia- corrected Severe constipation: laxatives / stool softeners DVT prevention -Sequential compression devices, avoid chemical prophylaxis at this time secondary to likely further procedures Case management consult for home health care services/needs PT consult- patient going home with bilateral nephrostomy and lux- Per hem/onc METASTATIC PROSTATE CANCER PER BIOPSY Discussed with patient, nurse [facility] VS SNF Code Status: FULL CODE Discussed Condition With: CASSIDY RN AND PT AND CM AND ONCOLOGY AND PALLIATIVE CARE Discharge Planning: PENDING SAFE DISCHARGE (1) Acute renal failure (ARF) Qualifiers: Acute renal failure type: unspecified Qualified Code(s): N17.9 - Acute kidney failure, unspecified
--- NOTE | 2018-05-13 13:53 | P.PNONC ---
Subjective Interval history: Patient lying in bed, watching television, in no acute distress. He reports that Dr. Bailey did discuss his pathology report with him today. The patient has not told his of his diagnosis as of yet, stating that he is dreading telling her. He does report that his son is aware. All questions have been answered. The patient has no complaints at this time. Objective Vital Signs/Intake & Output: Vital Signs 05/12/18 15:00 05/12/18 19:00 05/12/18 20:00 Temperature 98.0 F 98.2 F Pulse Rate 74 82 72 Respiratory Rate 20 Blood Pressure 148/84 H 155/93 H Pulse Oximetry 98 05/12/18 20:30 05/12/18 21:00 05/12/18 22:00 Temperature Pulse Rate 70 74 Respiratory Rate 20 Blood Pressure Pulse Oximetry 05/12/18 23:00 05/13/18 00:00 05/13/18 01:00 Temperature 98.3 F Pulse Rate 60 57 L 59 L Respiratory Rate 20 Blood Pressure 146/67 H Pulse Oximetry 96 05/13/18 02:00 05/13/18 03:00 05/13/18 04:00 Temperature 98.1 F Pulse Rate 60 68 71 Respiratory Rate 20 Blood Pressure 147/74 H Pulse Oximetry 96 05/13/18 05:00 05/13/18 08:00 05/13/18 08:49 Temperature 98.4 F Pulse Rate 68 60 72 Respiratory Rate 16 Blood Pressure 144/74 H Pulse Oximetry 95 05/13/18 10:27 05/13/18 12:00 Temperature 98.2 F Pulse Rate 69 Respiratory Rate 16 18 Blood Pressure 128/86 Pulse Oximetry 97 Intake & Output 05/12/18 05/13/18 05/13/18 18:59 06:59 18:59 Intake Total 480 / 480 400 / 400 50 / 50 Output Total 800 / 800 Balance 480 / 480 -400 / -400 50 / 50 Weight 64.2 kg Intake: IV 100 / 100 50 / 50 Zosyn 3.375 GM Premix 50 ML @ 100 / 100 50 / 50 100 mls/hr IV.SIG Q6H [facility] Rx#: [id number] Oral 480 / 480 300 / 300 Output: Stool 0 / 0 Emesis 0 / 0 Urine Amount (Catheter) 25 / Indwelling Urethral Catheter 25 / Urine Amount (Stoma) 775 / 775 Nephrostomy Tube Left 300 / 300 Nephrostomy Tube Right 475 / 475 Other: Date of Last Bowel Movement 05/11/18 05/11/18 # Bowel Movements 0 Result Diagrams: 05/12/18 04:35 05/12/18 04:35 Medications: Active Medications Generic Name Dose Route Start Last Admin Trade Name Freq PRN Reason Stop Dose Admin Acetaminophen 650 mg 04/30/18 10:29 05/03/18 21:56 Tylenol PO 650 mg Q4H PRN Administration Temp > 100.4 Al Hydroxide/Mg Hydroxide 30 ml 04/30/18 10:29 05/11/18 15:52 Milk Of Magnesia Liq PO 30 ml Q12H PRN Administration Mild Constipation Bisacodyl 10 mg 04/30/18 10:29 05/08/18 04:22 Dulcolax Supp RECTAL 10 mg DAILY PRN Administration SEVERE CONSITIPATION Enalaprilat 1.25 mg 05/02/18 10:59 05/03/18 08:48 Vasotec Inj IV.PUSH 1.25 mg Q6H PRN Administration SBP > 160 Finasteride 5 mg 05/02/18 15:45 05/13/18 08:34 Proscar PO 5 mg DAILY [facility] Administration Piperacillin/Tazobactam/Dextrose 50 mls @ 100 mls/hr 05/03/18 12:00 05/13/18 12:35 Zosyn 3.375 Gm Premix IV.SIG Infused Q6H [facility] Infusion Lactulose 30 ml 04/30/18 10:29 05/08/18 01:41 Lactulose Liq PO 30 ml DAILY PRN Administration SEVERE CONSITIPATION Morphine Sulfate 2 mg 05/05/18 12:36 05/13/18 10:21 Morphine Inj IV.PUSH 2 mg Q4H PRN Administration breakthrough pain Ondansetron HCl 4 mg 04/30/18 10:29 05/01/18 08:01 Zofran Inj IV.PUSH 4 mg Q6H PRN Administration NAUSEA OR VOMITING Senna/Docusate Sodium 1 tab 04/30/18 21:00 05/13/18 08:34 Kaya-Colace PO Not Given BID [facility] Sennosides 17.2 mg 04/30/18 10:29 05/12/18 09:37 Senokot PO 17.2 mg Q12H PRN Administration Moderate Constipation Tamsulosin HCl 0.4 mg 05/01/18 09:00 05/13/18 08:34 Flomax PO 0.4 mg DAILY [facility] Administration Temazepam 15 mg 04/30/18 10:29 05/12/18 20:39 Restoril PO 15 mg HS PRN Administration INSOMNIA Objective Remarks: GENERAL: Elderly male patient, lying in bed, watching television. In no acute distress. SKIN: Warm and dry. HEAD: Normocephalic. EYES: No scleral icterus. No injection or drainage. NECK: Supple, trachea midline. CARDIOVASCULAR: Regular rate and rhythm without murmurs. RESPIRATORY: Anterior breath sounds clear, equal bilaterally. No accessory muscle use. GASTROINTESTINAL: Abdomen soft, non-tender, nondistended. Posterior bilateral nephrostomy drains draining clear/sukhwinder fluid. EXTREMITIES: No cyanosis, or edema. MUSCULOSKELETAL: Adequate muscle tone. NEUROLOGICAL: No obvious focal deficit. Awake, alert, and oriented x3. PSYCHIATRIC: Normal mood; insight and judgment normal. Assessment/Plan (1) Prostate mass Code(s): N42.9 - Disorder of prostate, unspecified Status: Acute (2) Acute renal failure (ARF) Code(s): N17.9 - Acute kidney failure, unspecified Status: Acute (3) Ureter obstruction Code(s): N13.5 - Crossing vessel and stricture of ureter without hydronephrosis Status: Acute (4) Leukocytosis Code(s): D72.829 - Elevated white blood cell count, unspecified Status: Acute - Plan This is a 83-year-old male who has presented to the emergency room with urinary obstruction. He was in acute renal failure. He has a large pelvic mass which was causing bladder outlet obstruction. This mass is vigorous with the prostate and extending the patient has undergone bilateral nephrostomy tube placements with improvement in his and his creatinine. Patient was found to have a sclerotic T8 lesion. He also has bilateral pelvic lymphadenopathy and a PSA of 9.3. 1. Ileum biopsy pathology shows poorly differentiated carcinoma, consistent with metastatic prostate adenocarcinoma. The patient has been notified of his pathology. He has spoken with palliative care today and at this time it appears that he would elect for palliative treatment. We will start the patient on Casodex 50 mg daily. 2. Continue supportive care 3. Urology following. 4. Pain control at home is one of the patient's biggest concerns. I have reassured him that upon discharge he will be prescribed medication to help control his pain. 5. Patient cleared for discharge from an oncology standpoint. He will need to follow-up with Dr. Kuo in the outpatient clinic 1 week's time. - Attending Statement The exam, history, and the medical decision-making described in the above note were completed with the assistance of the mid-level provider. I reviewed and agree with the findings presented. I attest that I had a [id number] encounter with the patient on the same day, and personally performed and documented my assessment and findings in the medical record. (2) Acute renal failure (ARF) Qualifiers: Acute renal failure type: unspecified Qualified Code(s): N17.9 - Acute kidney failure, unspecified
--- NOTE | 2018-05-13 14:46 | P.DCO ---
- Diagnosis (5) Acute renal failure (ARF) - Physical Therapy Order: Evaluate and treat, Improve ambulation, Strength and gait training - Occupational Therapy Order: Evaluate and treat, Improve ADL, Gross motor coordination, Fine motor coordination - Home Health Nursing Order: Medical education, Signs/symptoms of disease process, Medication education-adverse effect, Wound care and dressing changes, Nursing assessment with vital signs - Home Health Aide Order: To assist in: Bathing and personal care, homebound teacher and meal prep - Certification I have seen patient Aroldo Tang on 05/13/18. My clinical findings support the need for the requested home health care services because: Deconditioned with increased weakness, Medication compliance is questionable, Limited ability to care for self, Need for psychosocial assistance, Impaired cognition/judgement I certify that my clinical findings support that this patient is homebound because: Unsteady gait/balance, Unsafe to leave home unassisted, Need for psychosocial assistance, Non-ambulatory: confined to bed or chair (5) Acute renal failure (ARF) Qualifiers: Acute renal failure type: unspecified Qualified Code(s): N17.9 - Acute kidney failure, unspecified
[2018-05-14] MEDS: Morphine Inj 4 MG/ML Vial IV.PUSH PRN ×4 (04:16→20:49)
[2018-05-14] MEDS: Piperacil/Tazo 3.375 GM Premix 50 ML IV.SIG SCH ×3 (07:43→17:53)
[2018-05-14] MEDS: Finasteride 5 MG Tablet PO SCH (09:02)
[2018-05-14] MEDS: Senna/Docusate Sodium 8.6/50 MG Tablet PO SCH ×2 (09:02→20:50)
[2018-05-14 09:41] LABS: Baso # (Auto) 0.1 th/mm3 (0.0-0.2); Baso % (Auto) 0.7 % (0.0-2.0); Eos # (Auto) 0.2 th/mm3 (0.0-0.4); Eos % (Auto) 2.8 % (0.0-4.0); Hematocrit 38.1 % (39.0-51.0); Hemoglobin 12.8 gm/dL (13.0-17.0); Lymph # (Auto) 1.4 th/mm3 (1.0-4.8); Lymph % (Auto) 15.8 % (9.0-44.0); Mean Corpuscular HGB Conc 33.6 % (32.0-36.0); Mean Corpuscular Hemoglobin 31.2 pg (27.0-34.0); Mean Corpuscular Volume 92.7 fL (80.0-100.0); Mean Platelet Volume 7.5 fL (7.0-11.0); Mono # (Auto) 0.7 th/mm3 (0.0-0.9); Mono % (Auto) 7.8 % (0.0-8.0); Neut # (Auto) 6.3 th/mm3 (1.8-7.7); Neut % (Auto) 72.9 % (16.0-70.0); Platelet Count 308 th/mm3 (150-450); Red Blood Count 4.11 mil/mm3 (4.50-5.90); Red Cell Distribution Width 13.2 % (11.6-17.2); White Blood Count 8.7 th/mm3 (4.0-11.0)
[2018-05-14 10:07] LABS: Albumin 2.5 g/dL (3.4-5.0); Anion Gap 8 meq/L (5-15); Aspartate Aminotransferase 48 U/L (15-37); Blood Urea Nitrogen 15 mg/dL (7-18); Calcium 8.1 mg/dL (8.5-10.1); Carbon Dioxide 27.6 meq/L (21.0-32.0); Chloride 104 meq/L (98-107); Glomerular Filtration Rate Greater Than 89 mL/min (>89); Glucose,Random 88 mg/dL (74-106); Magnesium 2.4 mg/dL (1.5-2.5); Potassium 4.2 meq/L (3.5-5.1); Sodium 140 meq/L (136-145)
[2018-05-14 10:08] LABS: Alanine Aminotransferase 29 U/L (12-78); Phosphorus 2.1 mg/dL (2.5-4.9)
[2018-05-14 10:10] LABS: Alkaline Phosphatase 88 U/L (45-117); Total Protein 6.8 g/dL (6.4-8.2)
--- NOTE | 2018-05-14 14:59 | P.PNIM ---
Subjective Interval history: Follow-up acute renal failure secondary to obstructive uropathy from prostate cancer. 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 Patient is status post bilateral nephrostomy tube placement Says he had a bowel movement yesterday feels much better. No pain at this time. No fever or chills. Nephrostomy tubes in place with clear urine minimal lux output BUT APPEARS DARK 05-08 NO NEW ISSUES PT AND OT MAY NEED SNF 05-09 [place] NEED SN[facility] [place] [facility] [place] NEPHROSTOMY TUBES AND LUX CASSIDY RN AND PATIENT AND CASE MANAGEMENT AND FAMILY NEEDS PATHOLOGY BACK 05-10 PATHOLOGY IS STILL PENDING CASSIDY RN AND PT STILL HAS BL NEPHROSTOMY TUBES AND LUX WILL NEED SNF AT [place] AM LABS 8-1 STILL AWAIT PATHOLOGY MAY NEED MORE TISSUE IF NO RESULTS ON THIS BIOPSY DW RN AND CM AND ONCOLOGY AND PT 8-2 F/U OBSTRUCTIVE UROPATHY DUE TO PROSTATE CANCER STATES HE WILL NOT DO OUTPT PROSTATE BIOPSY- RESULTS STILL NOT AVAILABLE MIGHT NEED T-8 BIOPSY IF HE WANTS TISSUE WHILE HERE WILL CONSULT IR FOR T-8 BIOPSY 8-3 PATHOLOGY FINALLY CAME BACK FOR METASTATIC PROSTATE CANCER ON PATHOLOGY NO NEED FOR T-8 BIOPSY AWAIT ONCOLOGY INPUT WILL NEED TO DC ON LUX AND NEPHROSTOMY TUBES DW RN AND PT AND ONCOLOGY AND CM 8-4 STARTED ON CASODEX BY ONCOLOGY CAN DC TO HOME AND FOLLOW UP WITH DR SCHNEIDER FOLLOW UP WITH UROLOGY DC TO HOME WITH [facility] WELL ON HIS OWN Physical Exam Vital signs: Vital Signs 05/13/18 16:00 05/13/18 19:26 05/13/18 19:51 Temperature 98.4 F Pulse Rate 79 75 Respiratory Rate 16 18 Blood Pressure 145/80 H Pulse Oximetry 98 05/13/18 19:52 05/13/18 23:49 05/13/18 23:52 Temperature 98.3 F 98.5 F Pulse Rate 80 67 Respiratory Rate 16 18 20 Blood Pressure 135/78 158/80 H Pulse Oximetry 95 97 05/14/18 00:01 05/14/18 03:52 05/14/18 04:00 Temperature 98.3 F Pulse Rate 79 73 67 Respiratory Rate 20 Blood Pressure 152/84 H Pulse Oximetry 96 05/14/18 04:18 05/14/18 08:00 05/14/18 12:00 Temperature 98.2 F 98.3 F Pulse Rate 81 72 Respiratory Rate 18 16 14 Blood Pressure 148/79 H 151/70 H Pulse Oximetry 95 97 Intake & Output 05/13/18 05/14/18 05/14/18 18:59 06:59 18:59 Intake Total 660 / 660 50 / 50 50 / 50 Output Total 700 / 700 800 / 800 Balance -40 / -40 -750 / -750 50 / 50 Weight 64.2 kg 64.8 kg Intake: IV 100 / 100 50 / 50 50 / 50 Zosyn 3.375 GM Premix 50 ML @ 100 / 100 50 / 50 50 / 50 100 mls/hr IV.SIG Q6H [facility] Rx#: [id number] Oral 560 / 560 Output: Urine Amount (Stoma) 700 / 700 800 / 800 Nephrostomy Tube Left 350 / 350 400 / 400 Nephrostomy Tube Right 350 / 350 400 / 400 Other: Date of Last Bowel Movement 05/11/18 Narrative: GENERAL: Cachectic chronically ill-appearing but awake alert and oriented talkative and cooperative SKIN: Warm and dry. HEAD: Atraumatic. Normocephalic. EYES: Pupils equal and round. No scleral icterus. No injection or drainage. ENT: No nasal bleeding or discharge. Mucous membranes pink and moist. NECK: Trachea midline. No JVD. CARDIOVASCULAR: Regular rate and rhythm. RESPIRATORY: No accessory muscle use. Clear to auscultation. Breath sounds equal bilaterally. GASTROINTESTINAL: Abdomen soft, non-tender, nondistended. Hepatic and splenic margins not palpable. Bilateral nephrostomy tubes in place with good urine output as well as Lux catheter in place with the quite dark output MUSCULOSKELETAL: Extremities without clubbing, cyanosis, or edema. No obvious deformities. NEUROLOGICAL: Awake and alert. No obvious cranial nerve deficits. Motor grossly within normal limits. 4 out of 5 muscle strength in the arms and legs. Normal speech. PSYCHIATRIC: Appropriate mood and affect; insight and judgment normal. - Urinary Catheter Management Indwelling Urethral Catheter Cath placed during this visit: yes Reason for continuing: Acute urinary retention Insertion date: 04/30/18 Insertion time: 08:28 Results - Labs CBC & Chem 7: 05/14/18 08:09 05/14/18 08:09 Laboratory Results - last 24 hr 05/14/18 05/14/18 08:09 08:09 WBC 8.7 RBC 4.11 L Hgb 12.8 L Hct 38.1 L MCV 92.7 MCH 31.2 MCHC 33.6 RDW 13.2 Plt Count 308 MPV 7.5 Neut % (Auto) 72.9 H Lymph % (Auto) 15.8 Martin % (Auto) 7.8 Eos % (Auto) 2.8 Baso % (Auto) 0.7 Neut # (Auto) 6.3 Lymph # (Auto) 1.4 Martin # (Auto) 0.7 Eos # (Auto) 0.2 Baso # (Auto) 0.1 WBC Differential . Differential Comment Auto diff final Sodium 140 Potassium 4.2 Chloride 104 Carbon Dioxide 27.6 Anion Gap 8 BUN 15 Creatinine 0.79 Estimated GFR Greater than 89 Random Glucose 88 Calcium 8.1 L Phosphorus 2.1 L Magnesium 2.4 Total Bilirubin 0.5 AST 48 H ALT 29 Alkaline Phosphatase 88 Total Protein 6.8 Albumin 2.5 L - Imaging Abdomen/Bladder Ultrasound 04/30/18 00:00 CONCLUSION: 1. Bilateral hydronephrosis. 2. Wall thickening of the urinary bladder. 3. Please refer to CT abdomen/pelvis for further details of the pelvic mass, not well seen sonographically. Chest X-Ray 04/30/18 00:00 CONCLUSION: Right basilar density could be atelectasis or infiltrate. Nephrostomy 04/30/18 00:00 CONCLUSION: 1. Uncomplicated bilateral nephrostomy tubes placed as above. Abdomen/Pelvis CT 04/30/18 10:10 CONCLUSION: 1. Large mass in the pelvis contiguous with the prostate gland. Prostate carcinoma is suspected. Correlation with PSA levels. 2. Extensive bilateral pelvic lymphadenopathy. 3. Sclerotic focus in T8 likely metastatic. 4. Bilateral hydronephrosis and hydroureter, likely obstruction caused by pelvic mass. Bone Scan Nuclear Medicine 05/03/18 00:00 CONCLUSION: 1. 3 small focal areas of intense abnormal uptake characteristic of metastatic disease. One of these corresponds to the sclerotic lesion seen on CT involving the T8 vertebra. Thoracic Spine CT 05/03/18 00:00 CONCLUSION: Sclerosis of the T8 vertebral body as described above. Malignancy is not excluded. This would be accessible to percutaneous biopsy. Bone Biopsy CT 05/04/18 00:00 CONCLUSION: 1. Uncomplicated CT-guided 11 gauge core biopsy of the focal sclerotic lesion within the right iliac bone. Pelvis MRI 05/05/18 00:00 CONCLUSION: 1. - Procedures BL NEPHROSTOMY TUBES AND BIOPSY Assessment and Plan - Assessment (1) Prostate CA Code(s): C61 - Malignant neoplasm of prostate Status: Acute (2) Prostate mass Code(s): N42.9 - Disorder of prostate, unspecified Status: Acute (3) Hyponatremia Code(s): E87.1 - Hypo-osmolality and hyponatremia Status: Acute (4) Hyperkalemia Code(s): E87.5 - Hyperkalemia Status: Acute (5) Acute renal failure (ARF) Code(s): N17.9 - Acute kidney failure, unspecified Status: Acute (6) Ureter obstruction Code(s): N13.5 - Crossing vessel and stricture of ureter without hydronephrosis Status: Acute (7) Leukocytosis Code(s): D72.829 - Elevated white blood cell count, unspecified Status: Acute - Plan 83 years old male Acute renal failure secondary to Obstructive uropathy likely from prostate cancer S/P bilateral nephrostomy tube placement 04/30 stage IV- bone scan with metastasis T8 - renal functions are improved METASTATIC PROSTATE CANCER WITH POSITIVE PATHOLOGY PROSTATE CANCER BEING THE PRIMARY -CT scan showed a rather large mass 9.4 x 7.4 cm in the pelvis contiguous with the prostate gland with bilateral hydronephrosis and hydroureter with obstruction caused by pelvic mass. There were sclerotic focus in T8 which could be metastatic. Extensive bilateral pelvic lymphadenopathy -Ultrasound was performed which did show bilateral hydronephrosis, wall thickening of the urinary bladder -There is no urinary output despite replacement of Lux, CT review was performed and Lux is in place, however bladder seems rather decompressed and small. It appears that the mass has surrounded the bladder possible obstructing the ureters. -Urology was consulted --- keep bilateral nephrostomy and Lux till ff up with them as OP -Nephrology ff- reanl function improved significantly with nephrostomy tubes = Oncology ff = Appreciate risk management consultant assistance. Continue to monitor. Nephrology, urology following. SP BL NEPHROSTOMY TUBES AND LUX CATHETER IN PLACE Suspected sepsis UTI -Tachypnea, leukocytosis, suspected UTI. -= Nephrology and urology are following. Continue with bilateral nephrostomy tubes. Due to leukocytosis and tachypnea, I have ordered urinalysis, a bilateral nephrostomy tubes. on broad-spectrum antibiotics. Follow-up cultures - negative so far .. Lactate down Hypertension- overall better With systolic blood pressures up to the 180s today. We will order Vasotec as needed for hypertension. Electrolyte abnormalities- resolved - Hyperkalemia- corrected Severe constipation: laxatives / stool softeners DVT prevention -Sequential compression devices, avoid chemical prophylaxis at this time secondary to likely further procedures Case management consult for home health care services/needs PT consult- patient going home with bilateral nephrostomy and lux- Per hem/onc METASTATIC PROSTATE CANCER PER BIOPSY DC TO HOME TODAY Discussed with patient, nurse HHC VS SNF Code Status: FULL CODE Discussed Condition With: RN AND PT Discharge Planning: DC TO HOME TODAY WITH HHC (5) Acute renal failure (ARF) Qualifiers: Acute renal failure type: unspecified Qualified Code(s): N17.9 - Acute kidney failure, unspecified
--- NOTE | 2018-05-14 15:14 | P.DS ---
Date of admission: 04/30/18 09:54 Primary care physician: Apolinar Murrell Attending physician on discharge: Antony Gaxiola Anticipated date of discharge: 05/14/18 Brief History from admission: 83-year-old male with known history of hyperlipidemia who presented the hospital because of suprapubic pain. Patient had at least 1 month history of suprapubic pain, abdominal pain. He was seen in [place] ER approximately 1 month ago and was found to have outlet obstruction and a Song was placed with Flomax started and patient was to follow-up with Dr. Bowman, patient did follow up with urologist one half weeks after that and had his Song removed. It was not but 2-3 hours and the pain came back significantly so he went to [facility] where they put another Song in him. The patient states that he has been with this intermittent Song removal and placement where he had visited [facility] at least 3 times for Song placement. He has been following up with his urologist. The patient states that it is planned for him to have a cystoscopy on Wednesday and a "Roto-Rooter" done in 1 week after that and he would be fine. He does not indicate that he has been told that he had had any type of pelvic mass, bladder mass, cancer. The patient continued to have the pain, he came back to the emergency department for evaluation here at [place] and his Song was removed and a new one was reinserted thinking that it was malfunctioning, however there is no urinary output. Laboratory studies do indicate severe renal failure, hyperkalemia, hyponatremia. Is recommended by the ER physician that the patient be admitted for further evaluation and management. After excepting the patient for admission a CT scan and ultrasound were performed which does show a rather significant prostatic mass, lymphadenopathy, bilateral hydro-ureter, hydronephrosis. Upon seeing the patient he is resting comfortably. Still having suprapubic tenderness, there is absolutely no urine in the Song at this time. DS: Diagnosis - Discharge Diagnosis (1) Prostate CA Status: Acute (2) Prostate mass Status: Acute (3) Hyponatremia Status: Acute (4) Hyperkalemia Status: Acute (5) Acute renal failure (ARF) Status: Acute (6) Ureter obstruction Status: Acute (7) Leukocytosis Status: Acute DS: Medications - Discharge Medications Prescriptions: atorvastatin 40 mg PO DAILY #30 tab bicalutamide 50 mg PO DAILY #30 tab finasteride 5 mg PO DAILY #30 tab lactulose 30 ml PO DAILY PRN #900 ml PRN Reason: Severe Consitipation oxycodone-acetaminophen [Percocet] 2 tab PO Q4-6H PRN #56 tab PRN Reason: Pain, Severe sennosides-docusate sodium [Senna Plus] 2 tab PO BID #120 tab tamsulosin [Flomax] 0.4 mg PO DAILY #30 cap DS: Summary Hospital Course: Follow-up acute renal failure secondary to obstructive uropathy from prostate cancer. 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 Patient is status post bilateral nephrostomy tube placement Says he had a bowel movement yesterday feels much better. No pain at this time. No fever or chills. Nephrostomy tubes in place with clear urine minimal song output BUT APPEARS DARK 05-08 NO NEW ISSUES PT AND OT MAY NEED SNF 05-09 [place] NEED SNF [place] ST[place] HAS BL NEPHROSTOMY TUBES AND SONG CASSIDY RN AND PATIENT AND CASE MANAGEMENT AND FAMILY NEEDS PATHOLOGY BACK 05-10 PATHOLOGY IS STILL PENDING CASSIDY RN AND PT STILL HAS BL NEPHROSTOMY TUBES AND SONG WILL NEED SNF AT [facility] AM LABS 8-1 STILL AWAIT PATHOLOGY MAY NEED MORE TISSUE IF NO RESULTS ON THIS BIOPSY CASSIDY RN AND CM AND ONCOLOGY AND PT 8-2 F/U OBSTRUCTIVE UROPATHY DUE TO PROSTATE CANCER STATES HE WILL NOT DO OUTPT PROSTATE BIOPSY- RESULTS STILL NOT AVAILABLE MIGHT NEED T-8 BIOPSY IF HE WANTS TISSUE WHILE HERE WILL CONSULT IR FOR T-8 BIOPSY 8-3 PATHOLOGY FINALLY CAME BACK FOR METASTATIC PROSTATE CANCER ON PATHOLOGY NO NEED FOR T-8 BIOPSY AWAIT ONCOLOGY INPUT WILL NEED TO [place] ON SONG AND NEPHROSTOMY TUBES CASSIDY RN AND PT AND ONCOLOGY AND CM 8-4 STARTED ON CASODEX BY ONCOLOGY CAN DC TO HOME AND FOLLOW UP WITH DR BA FOLLOW UP WITH UROLOGY DC TO HOME WITH [facility] AMBUL[facility] WELL ON HIS OWN Leatha-ELYSE CHECKED NO RX IN SYSTEM PERCOCET 5/325 1 TO 2 PO Q4 TO 6H #56 ACUTE PAIN EXCEPTION - Time Spent with Patient Total time spent providing and/or coordinating discharge services: Greater than 30 minutes - Quality: VTE Deep Vein Thrombosis/Pulmonary Embolism Present on Admission: No Exam Vital signs: Vital Signs 08/03/18 16:00 05/13/18 19:26 05/13/18 19:51 Temperature 98.4 F Pulse Rate 79 75 Respiratory Rate 16 18 Blood Pressure 145/80 H Pulse Oximetry 98 05/13/18 19:52 05/13/18 23:49 05/13/18 23:52 Temperature 98.3 F 98.5 F Pulse Rate 80 67 Respiratory Rate 16 18 20 Blood Pressure 135/78 158/80 H Pulse Oximetry 95 97 05/14/18 00:01 05/14/18 03:52 05/14/18 04:00 Temperature 98.3 F Pulse Rate 79 73 67 Respiratory Rate 20 Blood Pressure 152/84 H Pulse Oximetry 96 05/14/18 04:18 05/14/18 08:00 05/14/18 12:00 Temperature 98.2 F 98.3 F Pulse Rate 81 72 Respiratory Rate 18 16 14 Blood Pressure 148/79 H 151/70 H Pulse Oximetry 95 97 Intake & Output 05/13/18 05/14/18 05/14/18 18:59 06:59 18:59 Intake Total 660 / 660 50 / 50 50 / 50 Output Total 700 / 700 800 / 800 Balance -40 / -40 -750 / -750 50 / 50 Weight 64.2 kg 64.8 kg Intake: IV 100 / 100 50 / 50 50 / 50 Zosyn 3.375 GM Premix 50 ML @ 100 / 100 50 / 50 50 / 50 100 mls/hr IV.SIG Q6H [facility] Rx#: [id number] Oral 560 / 560 Output: Urine Amount (Stoma) 700 / 700 800 / 800 Nephrostomy Tube Left 350 / 350 400 / 400 Nephrostomy Tube Right 350 / 350 400 / 400 Other: Date of Last Bowel Movement 05/11/18 Narrative: GENERAL: Cachectic chronically ill-appearing but awake alert and oriented talkative and cooperative SKIN: Warm and dry. HEAD: Atraumatic. Normocephalic. EYES: Pupils equal and round. No scleral icterus. No injection or drainage. ENT: No nasal bleeding or discharge. Mucous membranes pink and moist. NECK: Trachea midline. No JVD. CARDIOVASCULAR: Regular rate and rhythm. RESPIRATORY: No accessory muscle use. Clear to auscultation. Breath sounds equal bilaterally. GASTROINTESTINAL: Abdomen soft, non-tender, nondistended. Hepatic and splenic margins not palpable. Bilateral nephrostomy tubes in place with good urine output as well as Song catheter in place with the quite dark output MUSCULOSKELETAL: Extremities without clubbing, cyanosis, or edema. No obvious deformities. NEUROLOGICAL: Awake and alert. No obvious cranial nerve deficits. Motor grossly within normal limits. 4 out of 5 muscle strength in the arms and legs. Normal speech. PSYCHIATRIC: Appropriate mood and affect; insight and judgment normal. Results Procedures completed during hospitalization: BL NEPHROSTOMY TUBES AND BIOPSY Completed studies during hospitalization: Laboratory Results CBC w Diff Auto diff final 04/30/18 08:39 WBC 8.7 th/mm3 (4.0-11.0) 05/14/18 08:09 RBC 4.11 mil/mm3 (4.50-5.90) L 05/14/18 08:09 Hgb 12.8 gm/dL (13.0-17.0) L 05/14/18 08:09 Hct 38.1 % (39.0-51.0) L 05/14/18 08:09 MCV 92.7 fL (80.0-100.0) 05/14/18 08:09 MCH 31.2 pg (27.0-34.0) 05/14/18 08:09 MCHC 33.6 % (32.0-36.0) 05/14/18 08:09 RDW 13.2 % (11.6-17.2) 05/14/18 08:09 Plt Count 308 th/mm3 (150-450) 05/14/18 08:09 MPV 7.5 fL (7.0-11.0) 05/14/18 08:09 Neut % (Auto) 72.9 % (16.0-70.0) H 05/14/18 08:09 Lymph % (Auto) 15.8 % (9.0-44.0) 05/14/18 08:09 [place] % (Auto) 7.8 % (0.0-8.0) 05/14/18 08:09 Eos % (Auto) 2.8 % (0.0-4.0) 05/14/18 08:09 Baso % (Auto) 0.7 % (0.0-2.0) 05/14/18 08:09 Neut # (Auto) 6.3 th/mm3 (1.8-7.7) 05/14/18 08:09 Lymph # (Auto) 1.4 th/mm3 (1.0-4.8) 05/14/18 08:09 [place] # (Auto) 0.7 th/mm3 (0.0-0.9) 05/14/18 08:09 Eos # (Auto) 0.2 th/mm3 (0.0-0.4) 05/14/18 08:09 Baso # (Auto) 0.1 th/mm3 (0.0-0.2) 05/14/18 08:09 WBC Differential . 05/14/18 08:09 Differential Comment Auto diff final 05/14/18 08:09 PT 11.4 sec (9.8-11.6) 05/09/18 05:50 INR 1.1 Ratio 05/09/18 05:50 APTT 32.9 sec (24.3-30.1) H 04/30/18 18:25 Fibrinogen 322 mg/dL (227-377) 04/30/18 18:25 Sodium 140 meq/L (136-145) 05/14/18 08:09 Potassium 4.2 meq/L (3.5-5.1) 05/14/18 08:09 Chloride 104 meq/L (98-107) 05/14/18 08:09 Carbon Dioxide 27.6 meq/L (21.0-32.0) 05/14/18 08:09 Anion Gap 8 meq/L (5-15) 05/14/18 08:09 BUN 15 mg/dL (7-18) 05/14/18 08:09 Creatinine 0.79 mg/dL (0.60-1.30) 05/14/18 08:09 Estimated GFR Greater than 89 mL/min (>89) 05/14/18 08:09 Random Glucose 88 mg/dL (74-106) 05/14/18 08:09 Hemoglobin A1c 4.9 % (4.3-6.0) 05/09/18 05:50 Lactic Acid 1.1 mmol/L (0.4-2.0) 05/01/18 18:07 Calcium 8.1 mg/dL (8.5-10.1) L 05/14/18 08:09 Phosphorus 2.1 mg/dL (2.5-4.9) L 05/14/18 08:09 Magnesium 2.4 mg/dL (1.5-2.5) 05/14/18 08:09 Total Bilirubin 0.5 mg/dL (0.2-1.0) 05/14/18 08:09 AST 48 U/L (15-37) H 05/14/18 08:09 ALT 29 U/L (12-78) 05/14/18 08:09 Alkaline Phosphatase 88 U/L (45-117) 05/14/18 08:09 Total Protein 6.8 g/dL (6.4-8.2) 05/14/18 08:09 Albumin 2.5 g/dL (3.4-5.0) L 05/14/18 08:09 Free PSA 1.8 ng/mL 05/01/18 03:22 Total PSA 9.3 ng/mL (<=7.2) H 05/01/18 03:22 PSA Free/Total Ratio 0.19 ratio 05/01/18 03:22 TSH 1.850 uIU/mL (0.358-3.740) 05/09/18 05:50 Free T4 1.38 ng/dL (0.76-1.46) 05/09/18 05:50 Urine Color Red (Yellw/Straw) 05/01/18 10:50 Urine Clarity Hazy (Clear) H 05/01/18 10:50 Urine pH 5.0 (5.0-8.5) 05/01/18 10:50 Ur Specific Thomas 1.013 (1.002-1.035) 05/01/18 10:50 Urine Protein 30 mg/dL (Neg-Trace) H 05/01/18 10:50 Urine Glucose (UA) Negative mg/dL (Negative) 05/01/18 10:50 Urine Ketones Trace mg/dL (Negative) 05/01/18 10:50 Urine Occult Blood Large (Negative) H 05/01/18 10:50 Urine Nitrate Negative (Negative) 05/01/18 10:50 Urine Bilirubin Negative (Negative) 05/01/18 10:50 Urine Urobilinogen Less than 2 mg/dL (Less than 2) 05/01/18 10:50 Ur Leukocyte Esterase Small (Negative) H 05/01/18 10:50 Urine RBC /hpf (0-3) 05/01/18 10:50 Urine WBC 34 /hpf (0-5) H 05/01/18 10:50 Urine WBC Clumps Few (None) H 05/01/18 10:50 Ur Squamous Epith Cells <1 /hpf (0-5) 05/01/18 10:50 Urine Mucus Few /lpf (Occasional) H 05/01/18 10:50 Micro UA Comment Cath-culture ind 05/01/18 10:50 Urine Culture Comments Cath-cult indicated 05/01/18 10:50 Impressions Abdomen/Bladder Ultrasound 04/30/18 00:00 CONCLUSION: 1. Bilateral hydronephrosis. 2. Wall thickening of the urinary bladder. 3. Please refer to CT abdomen/pelvis for further details of the pelvic mass, not well seen sonographically. Chest X-Ray 04/30/18 00:00 CONCLUSION: Right basilar density could be atelectasis or infiltrate. Abdomen/Pelvis CT 04/30/18 10:10 CONCLUSION: 1. Large mass in the pelvis contiguous with the prostate gland. Prostate carcinoma is suspected. Correlation with PSA levels. 2. Extensive bilateral pelvic lymphadenopathy. 3. Sclerotic focus in T8 likely metastatic. 4. Bilateral hydronephrosis and hydroureter, likely obstruction caused by pelvic mass. Bone Scan Nuclear Medicine 05/03/18 00:00 CONCLUSION: 1. 3 small focal areas of intense abnormal uptake characteristic of metastatic disease. One of these corresponds to the sclerotic lesion seen on CT involving the T8 vertebra. Thoracic Spine CT 05/03/18 00:00 CONCLUSION: Sclerosis of the T8 vertebral body as described above. Malignancy is not excluded. This would be accessible to percutaneous biopsy. Bone Biopsy CT 05/04/18 00:00 CONCLUSION: 1. Uncomplicated CT-guided 11 gauge core biopsy of the focal sclerotic lesion within the right iliac bone. Pelvis MRI 05/05/18 00:00 CONCLUSION: 1. Labs on day of discharge: Labs from last 24 hours 05/14/18 05/14/18 08:09 08:09 WBC 8.7 RBC 4.11 L Hgb 12.8 L Hct 38.1 L MCV 92.7 MCH 31.2 MCHC 33.6 RDW 13.2 Plt Count 308 MPV 7.5 Neut % (Auto) 72.9 H Lymph % (Auto) 15.8 [place] % (Auto) 7.8 Eos % (Auto) 2.8 Baso % (Auto) 0.7 Neut # (Auto) 6.3 Lymph # (Auto) 1.4 [place] # (Auto) 0.7 Eos # (Auto) 0.2 Baso # (Auto) 0.1 WBC Differential . Differential Comment Auto diff final Sodium 140 Potassium 4.2 Chloride 104 Carbon Dioxide 27.6 Anion Gap 8 BUN 15 Creatinine 0.79 Estimated GFR Greater than 89 Random Glucose 88 Calcium 8.1 L Phosphorus 2.1 L Magnesium 2.4 Total Bilirubin 0.5 AST 48 H ALT 29 Alkaline Phosphatase 88 Total Protein 6.8 Albumin 2.5 L - Impressions ITS Impressions Abdomen/Bladder Ultrasound 04/30/18 00:00 CONCLUSION: 1. Bilateral hydronephrosis. 2. Wall thickening of the urinary bladder. 3. Please refer to CT abdomen/pelvis for further details of the pelvic mass, not well seen sonographically. Chest X-Ray 04/30/18 00:00 CONCLUSION: Right basilar density could be atelectasis or infiltrate. Abdomen/Pelvis CT 04/30/18 10:10 CONCLUSION: 1. Large mass in the pelvis contiguous with the prostate gland. Prostate carcinoma is suspected. Correlation with PSA levels. 2. Extensive bilateral pelvic lymphadenopathy. 3. Sclerotic focus in T8 likely metastatic. 4. Bilateral hydronephrosis and hydroureter, likely obstruction caused by pelvic mass. Bone Scan Nuclear Medicine 05/03/18 00:00 CONCLUSION: 1. 3 small focal areas of intense abnormal uptake characteristic of metastatic disease. One of these corresponds to the sclerotic lesion seen on CT involving the T8 vertebra. Thoracic Spine CT 05/03/18 00:00 CONCLUSION: Sclerosis of the T8 vertebral body as described above. Malignancy is not excluded. This would be accessible to percutaneous biopsy. Bone Biopsy CT 05/04/18 00:00 CONCLUSION: 1. Uncomplicated CT-guided 11 gauge core biopsy of the focal sclerotic lesion within the right iliac bone. Pelvis MRI 05/05/18 00:00 CONCLUSION: 1. Discharge Plan - Discharge Disposition Patient Disposition: Disch /Home Health Service - Discharge Condition Condition: Stable - Discharge Order Discharge Orders: Discharge Order (Routine); Ordered 05/14/18 Ordered By: Antony Gaxiola Nephrology Clear for Discharge (Routine); Ordered 05/02/18 Ordered By: Jasper Camacho - Discharge Details Anticipated Discharge Date: 05/14/18 Discharge Comment: DC TO HOME WITH [facility] - Physicians Team Primary Care Provider: Apolinar Murrell Attending Provider: Antony Gaxiola Other Providers: Jasper Camacho MD ; Haim Pope DO ; Chase Ba MD ; Nanda Bailey MD
[2018-05-15] MEDS: Morphine Inj 4 MG/ML Vial IV.PUSH PRN (00:40)
[2018-05-15] MEDS: Piperacil/Tazo 3.375 GM Premix 50 ML IV.SIG SCH ×3 (00:40→11:51)
[2018-05-15] MEDS: Temazepam 15 MG Capsule PO PRN (00:47)
[2018-05-15] MEDS ORDERED: HYDROmorphone PF Inj 2 MG/ML Vial IV.PUSH PRN (02:44)
[2018-05-15] MEDS: Finasteride 5 MG Tablet PO SCH (09:28)
[2018-05-15] MEDS: Senna/Docusate Sodium 8.6/50 MG Tablet PO SCH (09:28)
--- NOTE | 2018-05-15 11:20 | P.PNIM ---
Subjective Interval history: Follow-up acute renal failure secondary to obstructive uropathy from prostate cancer. 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 Patient is status post bilateral nephrostomy tube placement Says he had a bowel movement yesterday feels much better. No pain at this time. No fever or chills. Nephrostomy tubes in place with clear urine minimal lux output BUT APPEARS DARK 05-08 NO NEW ISSUES PT AND OT MAY NEED SNF 05-09 [place] NEED SNF AT [facility] STILL HAS BL NEPHROSTOMY TUBES AND LUX CASSIDY RN AND PATIENT AND CASE MANAGEMENT AND FAMILY NEEDS PATHOLOGY BACK 05-10 PATHOLOGY IS STILL PENDING CASSIDY RN AND PT STILL HAS BL NEPHROSTOMY TUBES AND LUX WILL NEED SNF AT [place] AM LABS 8- STILL AWAIT PATHOLOGY MAY NEED MORE TISSUE IF NO RESULTS ON THIS BIOPSY DW RN AND CM AND ONCOLOGY AND PT 8-2 F/U OBSTRUCTIVE UROPATHY DUE TO PROSTATE CANCER STATES HE WILL NOT DO OUTPT PROSTATE BIOPSY- RESULTS STILL NOT AVAILABLE MIGHT NEED T-8 BIOPSY IF HE WANTS TISSUE WHILE HERE WILL CONSULT IR FOR T-8 BIOPSY 8-3 PATHOLOGY FINALLY CAME BACK FOR METASTATIC PROSTATE CANCER ON PATHOLOGY NO NEED FOR T-8 BIOPSY AWAIT ONCOLOGY INPUT WILL NEED TO DC ON LUX AND NEPHROSTOMY TUBES DW RN AND PT AND ONCOLOGY AND CM 8-4 STARTED ON [facility] BY ONCOLOGY CAN DC TO HOME AND FOLLOW UP WITH DR SCHNEIDER FOLLOW UP WITH UROLOGY DC TO HOME WITH [facility] AMBULATING WELL ON HIS OWN 8-5 PATIENT REFUSED TO LEAVE THE HOSPITAL HAS FILED MEDICARE APPEAL WILL HOPEFULLY RULE IN THE DOCTORS [place] AND HE CAN BE DISCHARGED TOMORROW NO NEW COMPLAINTS QUITE UNREALISTIC AT THIS TIME DOES NOT REALIZE THAT PEOPLE DO NOT GET 100% BETTER IN HOSPITALS BEFORE DISCHARGE Physical Exam Vital signs: Vital Signs 05/14/18 12:00 05/14/18 16:00 05/14/18 19:11 Temperature 98.3 F 98.0 F Pulse Rate 72 77 70 Respiratory Rate 14 16 Blood Pressure 151/70 H 155/93 H Pulse Oximetry 97 97 05/14/18 20:40 05/14/18 20:51 05/14/18 23:30 Temperature 98.9 F Pulse Rate 74 66 Respiratory Rate 18 18 Blood Pressure 147/88 H Pulse Oximetry 95 05/15/18 00:48 05/15/18 00:50 05/15/18 04:09 Temperature 98.4 F Pulse Rate 71 74 Respiratory Rate 20 16 Blood Pressure 159/82 H Pulse Oximetry 05/15/18 04:45 05/15/18 05:00 05/15/18 08:00 Temperature 98 F 97.6 F Pulse Rate 65 76 Respiratory Rate 16 18 16 Blood Pressure 122/73 145/85 H Pulse Oximetry 95 96 Intake & Output 05/14/18 05/15/18 05/15/18 18:59 06:59 18:59 Intake Total 150 / 150 100 / 100 Output Total 525 / 525 450 / 450 Balance -375 / -375 -350 / -350 Weight 64.6 kg Intake: IV 150 / 150 100 / 100 Zosyn 3.375 GM Premix 50 ML @ 150 / 150 100 / 100 100 mls/hr IV.SIG Q6H KRISTAL Rx#: [id number] Output: Urine Amount (Stoma) 525 / 525 450 / 450 Nephrostomy Tube Left 275 / 275 250 / 250 Nephrostomy Tube Right 250 / 250 200 / 200 Other: Date of Last Bowel Movement 05/14/18 05/15/18 05/14/18 # Bowel Movements 1 Narrative: GENERAL: Cachectic chronically ill-appearing but awake alert and oriented talkative and cooperative SKIN: Warm and dry. HEAD: Atraumatic. Normocephalic. EYES: Pupils equal and round. No scleral icterus. No injection or drainage. ENT: No nasal bleeding or discharge. Mucous membranes pink and moist. NECK: Trachea midline. No JVD. CARDIOVASCULAR: Regular rate and rhythm. RESPIRATORY: No accessory muscle use. Clear to auscultation. Breath sounds equal bilaterally. GASTROINTESTINAL: Abdomen soft, non-tender, nondistended. Hepatic and splenic margins not palpable. Bilateral nephrostomy tubes in place with good urine output as well as Lux catheter in place with the quite dark output MUSCULOSKELETAL: Extremities without clubbing, cyanosis, or edema. No obvious deformities. NEUROLOGICAL: Awake and alert. No obvious cranial nerve deficits. Motor grossly within normal limits. 4 out of 5 muscle strength in the arms and legs. Normal speech. PSYCHIATRIC: Appropriate mood and affect; insight and judgment normal. - Urinary Catheter Management Indwelling Urethral Catheter Cath placed during this visit: yes Reason for continuing: Acute urinary retention Insertion date: 04/30/18 Insertion time: 08:28 Results - Labs CBC & Chem 7: 05/14/18 08:09 05/14/18 08:09 - Procedures BL NEPHROSTOMY TUBES AND BIOPSY Assessment and Plan - Assessment (1) Prostate CA Code(s): C61 - Malignant neoplasm of prostate Status: Acute (2) Prostate mass Code(s): N42.9 - Disorder of prostate, unspecified Status: Acute (3) Hyponatremia Code(s): E87.1 - Hypo-osmolality and hyponatremia Status: Acute (4) Hyperkalemia Code(s): E87.5 - Hyperkalemia Status: Acute (5) Acute renal failure (ARF) Code(s): N17.9 - Acute kidney failure, unspecified Status: Acute (6) Ureter obstruction Code(s): N13.5 - Crossing vessel and stricture of ureter without hydronephrosis Status: Acute (7) Leukocytosis Code(s): D72.829 - Elevated white blood cell count, unspecified Status: Acute - Plan 83 years old male Acute renal failure secondary to Obstructive uropathy likely from prostate cancer S/P bilateral nephrostomy tube placement 04/30 stage IV- bone scan with metastasis T8 - renal functions are improved METASTATIC PROSTATE CANCER WITH POSITIVE PATHOLOGY PROSTATE CANCER BEING THE PRIMARY -CT scan showed a rather large mass 9.4 x 7.4 cm in the pelvis contiguous with the prostate gland with bilateral hydronephrosis and hydroureter with obstruction caused by pelvic mass. There were sclerotic focus in T8 which could be metastatic. Extensive bilateral pelvic lymphadenopathy -Ultrasound was performed which did show bilateral hydronephrosis, wall thickening of the urinary bladder -There is no urinary output despite replacement of Lux, CT review was performed and Lux is in place, however bladder seems rather decompressed and small. It appears that the mass has surrounded the bladder possible obstructing the ureters. -Urology was consulted --- keep bilateral nephrostomy and Lux till ff up with them as OP -Nephrology ff- reanl function improved significantly with nephrostomy tubes = Oncology ff = Appreciate medical cost consultant assistance. Continue to monitor. Nephrology, urology following. SP BL NEPHROSTOMY TUBES AND LUX CATHETER IN PLACE Suspected sepsis UTI -Tachypnea, leukocytosis, suspected UTI. -= Nephrology and urology are following. Continue with bilateral nephrostomy tubes. Due to leukocytosis and tachypnea, I have ordered urinalysis, a bilateral nephrostomy tubes. on broad-spectrum antibiotics. Follow-up cultures - negative so far .. Lactate down Hypertension- overall better With systolic blood pressures up to the 180s today. We will order Vasotec as needed for hypertension. Electrolyte abnormalities- resolved - Hyperkalemia- corrected Severe constipation: laxatives / stool softeners DVT prevention -Sequential compression devices, avoid chemical prophylaxis at this time secondary to likely further procedures Case management consult for home health care services/needs PT consult- patient going home with bilateral nephrostomy and lux- Per hem/onc METASTATIC PROSTATE CANCER PER BIOPSY DC TO HOME TODAY Discussed with patient, nurse HHC VS SNF WAS DISCHARGED ON 05-14 REFUSED TO LEAVE NO NEW CHANGES NEEDS TO DISCHARGE Code Status: FULL CODE Discussed Condition With: RN AND PT AND CM Discharge Planning: DC TO HOME TODAY WITH [facility] (5) Acute renal failure (ARF) Qualifiers: Acute renal failure type: unspecified Qualified Code(s): N17.9 - Acute kidney failure, unspecified
[2018-05-17 18:02] VITALS: BP 149/71; PULSE 82; RESP 18; TEMP 97.4; O2SAT 96
== END 2018-05-15 16:02 | disposition home health service (06) ==
LOC: PHED 06:44 → PHEDA 09:55 → PH3 11:14 → HIMC 16:05 → HCIN 05-04 11:40
PROVIDERS: ADMIT Hospitalist; ATTEND Hospitalist